=== PATIENT | female | born 1980 | race Hispanic/Latino ===

== ENCOUNTER 2025-08-07 10:52 | Inpatient (IN) | payer OTHER ==
[~2025-08-07] VITALS: Ht 170.2 cm; Wt 87.1 kg
--- NOTE | 2025-08-07 10:58 | ERN ---
ED Note History of Present Illness Stated Complaint: WOUND CHECK Chief Complaint: Wound Check Time Seen by MD: 10:55 Dictation: PATIENT IS A 44-YEAR-OLD FEMALE HERE COMING IN FROM [employer]S WORK[employer] OFFICE WITH COMPLAINTS OF ERYTHEMA SWELLING AND A POSSIBLE INSECT BITE OR SPIDER BITE TO THE DORSUM RIGHT FOOT TWO WEEKS AGO. SHE HAS GOT ERYTHEMA WITH THE WOUND. STATES SHE HAS BEEN WATCHED BY HER GAS SYSTEMS WORKER HOWEVER TODAY WAS ADVISED COME TO THE EMERGENCY ROOM FOR FURTHER EVALUATION AND TREATMENT LOW-GRADE TEMP. BLOOD SUGAR HAS BEEN ELEVATED TODAY 187 IN TRIAGE. Allergies: Coded Allergies: No Known Drug Allergies (Unverified Allergy, Unknown, 08/07/25) Past Medical History History: Not Applicable RN Note Reviewed/Agreed w/PFSH: Yes Review of System Dictation CONSTITUTIONAL: NEGATIVE EXCEPT FOR HPI HEAD/FACE: NEGATIVE EXCEPT FOR HPI EENT: NEGATIVE EXCEPT FOR HPI RESPIRATORY: NEGATIVE EXCEPT FOR HPI GASTROINTESTINAL/ABDOMINAL: NEGATIVE EXCEPT FOR HPI GENITOURINARY: NEGATIVE EXCEPT FOR HPI MUSCULOSKELETAL: NEGATIVE EXCEPT FOR HPI INTEGUMENTARY: NEGATIVE EXCEPT FOR HPI RIGHT GREAT TOE INSECT BITE NEUROLOGICAL/PSYCH: NEGATIVE EXCEPT FOR HPI HEMATOLOGIC/LYMPHATIC: NEGATIVE EXCEPT FOR HPI ALL SYSTEMS NEGATIVE, EXCEPT NOTED ABOVE. 13 POINT REVIEW OF SYSTEMS ASSESSED AND ALL NEGATIVE EXCEPT FOR ABOVE. Initial Vital Sign VS Vital Signs Date Time Temp Pulse Resp B/P (MAP) Pulse Ox O2 Delivery O2 Flow Rate FiO2 08/07/25 10:55 99.1 104 18 133/84 98 Room Air 08/07/25 12:27 0 21 Physical Exam Dictation VITAL SIGNS REVIEWED GENERAL APPEARANCE: ALERT, ORIENTED X 3, N MILD ACUTE DISTRESS, WELL DEVELOPED, NOURISHED. OBESE HEAD AND FACE: NON-TRAUMATIC. EYES: PERRL, PINK CONJUNCTIVAS, EYELID NO TRAUMA, ANTERIOR CHAMBER WITH ARCUS SENILIS. EARS: PINNAS INTACT AND NO SIGNS OF TRAUMA OR ERYTHEMA EAR CANALS CLEAR AND NO DISCHARGE TM NO ERYTHEMA NOSE: NO DISCHARGE, NO BLEEDING. OROPHARYNX: MOUTH NORMAL, TONGUE PINK, PHARYNX CLEAR,NO ERYTHEMA, TONSILS NO EXUDATES, NO ABSCESSES NOTED, MUCOUS MEMBRANE MOIST NECK: SUPPLE, NON-TENDER, NO THYROMEGALY, NO MASSES, NO JVD, NO BRUITS BREAST:DEFERRED CHEST:NO TENDERNESS, NO CREPITUS, NO PARADOXICAL MOVEMENT, NO RETRACTIONS LUNGS:CLEAR, WELL-VENTILATED, SYMMETRIC, NO RALES, NO WHEEZING, NO RHONCHI, NO STRIDOR, GOOD BREATH SOUNDS BILATERALLY HEART: REGULAR RATE, REGULAR RHYTHM, NO MURMUR, NO GALLOPS VASCULAR: NO PERIPHERAL EDEMA, ABDOMEN: SOFT, POSITIVE BOWEL SOUNDS, NONDISTENDED, NO GUARDING, NONTENDER, NO REBOUND, NO MASSES NO HEPATOMEGALY, NO SPLENOMEGALY, NO YAO'S SIGN, NO HERNIAS. RECTAL: DEFERRED GENITAL: DEFERRED NEUROLOGICAL: NORMAL SPEECH, MOTOR FUNCTION INTACT, SENSORY FUNCTION INTACT MUSCULOSKELETAL: NECK NONTENDER, FULL RANGE OF MOTION, BACK NONTENDER, FULL RANGE OF MOTION, EXTREMITIES: NONTENDER, FULL RANGE OF MOTION SKIN: COLOR PINK, PATIENT HAS A STAGE II LESION TO THE BASE OF THE RIGHT GREAT TOE MEDIALLY. IT IS MOIST AND DRAINING. ERYTHEMATOUS TENDER. CULTURE WE WILL BE SENT TO PHARMACY LYMPHATIC: DEFERRED Results (Laboratory/Radiology) Laboratory/Radiology Laboratory Tests Test 08/07/25 11:03 White Blood Count 8.2 K/uL (4.8-10.8) Red Blood Count 4.73 MIL/uL (4.00-5.50) Hemoglobin 13.4 g/dL (12.0-16.0) Hematocrit 39.2 % (36-48) Mean Corpuscular Volume 82.9 fL (79-99) Mean Corpuscular Hemoglobin 28.3 pg (27.0-33.0) Mean Corpuscular Hemoglobin Concent 34.2 g/dL (32.0-36.0) Red Cell Distribution Width 11.8 % (11.0-15.5) Platelet Count 236 K/uL (130-400) Mean Platelet Volume 11.2 fL (7.5-10.5) H Immature Granulocyte % (Auto) 0.4 % (0-1) Neutrophils (%) (Auto) 88.7 % (40.0-77.0) H Lymphocytes (%) (Auto) 7.1 % (21.0-51.0) L Monocytes (%) (Auto) 3.7 % (3.0-13.0) Eosinophils (%) (Auto) 0.0 % (0.0-8.0) Basophils (%) (Auto) 0.1 % (0.0-5.0) Neutrophils # (Auto) 7.3 K/uL (1.8-7.7) Lymphocytes # (Auto) 0.6 K/uL (1.0-4.8) L Monocytes # (Auto) 0.3 K/uL (0.1-1.0) Eosinophils # (Auto) 0.00 K/uL (0.00-0.70) Basophils # (Auto) 0.01 K/uL (0.00-0.20) Absolute Immature Granulocyte (auto 0.03 K/uL (0-1) Nucleated Red Blood Cells 0.0 % (0.0-0.19) White Cell Morphology Comment See comments Sodium Level 133 mmol/L (136-145) L Potassium Level 3.4 mmol/L (3.5-5.1) L Chloride Level 98 mmol/L (101-111) L Carbon Dioxide Level 24 mmol/L (21-32) Blood Urea Nitrogen 12 mg/dL (7-18) Creatinine 0.7 mg/dL (0.5-1.0) Glomerular Filtration Rate Calc 109 mL/min (>90) Random Glucose 163 mg/dL (70-105) H Lactic Acid Level 1.8 mmol/L (0.8-2.5) Total Calcium 9.3 mg/dL (8.5-10.1) IMAGING REPORT Signed PATIENT: BRUNO MOSS MR#: [id number] : 1980 SEX: F AGE: 44 LOCATION: [facility] ORDER 56 STATUS: [facility] REPORT#: [id number] SERVICE 105 REASON: INSECT BITE WITH A ERYTHEMA TO RIGHT FOOT DORSAL ORDERING PHYSICIAN: CHARITY GR NP PROCEDURE: FT 3VW RT - FOOT COMP 3+VWS RT FOOT COMP 3+VWS RT REASON: INSECT BITE WITH A ERYTHEMA TO RIGHT FOOT DORSAL TECHNIQUE: 4 views were obtained. FINDINGS: There is no evidence of fracture or dislocation. There is no joint effusion. The soft tissues appear unremarkable. There is no evidence of a radiopaque foreign body. There is a small ventral calcaneal spur. IMPRESSION: No acute findings. Small ventral calcaneal spur Labs Reviewed?: Yes ED Course ED Course Orders Procedure Category Date Status Time Foot Comp 3+Vws Rt RAD 08/07/25 Resulted 10:56 Blood Cult HSREYAS 08/07/25 In Process 10:56 Lactic Acid LAB 08/07/25 Complete 10:56 Cbc With Differential LAB 08/07/25 Complete 10:56 Urinalysis Profile LAB 08/07/25 Logged 10:56 Basic Metabolic Panel LAB 08/07/25 Complete 10:56 Clindamycin Ivpb PHA 08/07/25 In Process 600mg/50ml (Cleocin 12:16 Aerobic Culture SHREYAS 08/07/25 Logged 12:17 0.9%Nacl 1000ml (Ns PHA 08/07/25 In Process 1000ml) 13:00 Edm Admit Bridge Order ADM 08/07/25 Transmitted 12:34 Current Medications Medications (Trade) Dose Ordered Sig/Willis Route PRN Reason Start Time Stop Time Status Last Admin Dose Admin Clindamycin HCl/ Dextrose 50 ml @ 100 mls/hr ONCE STAT IV 08/07/25 12:16 08/07/25 12:45 Sodium Chloride 1,000 ml @ 0 mls/hr ONCE ONCE IV 08/07/25 13:00 08/07/25 13:01 Vital Signs Date Time Temp Pulse Resp B/P (MAP) Pulse Ox O2 Delivery O2 Flow Rate FiO2 08/07/25 12:27 99.1 104 18 133/84 98 Room Air* 0 21 08/07/25 10:55 99.1 104 18 133/84 98 Room Air 1220/SPOKE WITH PATIENT AND HER AT LENGTH SHE WAS TACHYCARDIC ON PRESENTATION WITH A LOW-GRADE TEMP. SHE HAS BEEN ON CLINDAMYCIN HAS HAD TWO ROCEPHIN SHOTS BY HER DOCTOR OVER THE LAST SEVEN DAYS. CLINDAMYCIN FILLED ON 07/31 TODAY SHE SAW A GAS SYSTEMS WORKER TO DID AN I&D ON THE TOE AND THEN TOLD HER TO COME TO THE HOSPITAL. 1230/spoke with Dr. galvan, reviewed x-ray labs and interventions for hyponatremia and dehydration he agreed to admit. Medical Decision Making MDM MDM: DIFFERENTIAL DIAGNOSIS: INFECTED INSECT BITE/CELLULITIS/DIABETIC TOES/ELECTROLYTE IMBALANCE DEHYDRATION/SEPSIS/OSTEOMYELITIS RATIONALE: TESTS CONSIDERED AND ORDERED SECONDARY TO SHARED DECISION MAKING INCLUDE: LABS,AND RADIOLOGY PREVIOUS OUTSIDE RECORDS REVIEWED: OLD ER VISITS. RISK OF COMPLICATION AND/OR MORBIDITY OR MORTALITY OF PATIENT MANAGEMENT: NONE MEDICATIONS-PER MEDICATION RECONCILIATION NEED FOR HOSPITALIZATION: PATIENT DOES MEET CRITERIA FOR HOSPITALIZATION. PATIENT WILL NEED ADMITTED FOR OUTPATIENT TREATMENT FAILURE FOR DIABETIC TOE NEED FOR EMERGENCY MAJOR/MINOR SURGERY: NO THERE ARE NO SOCIAL CONCERNS WITH THIS PATIENT. PRESCRIPTION DRUG MANAGEMENT PRESCRIPTIONS WILL INCLUDE SYMPTOMATIC CARE PATIENT'S PRIOR EXTERNAL MEDICAL RECORDS FROM OTHER ER VISITS WERE REVIEWED BY ME INDICATED. PRIOR TESTING AND RESULTS FROM PREVIOUS VISITS WERE REVIEWED. PRIOR TESTS WERE TAKEN INTO ACCOUNT WITH MEDICAL DECISION MAKING AND RESOURCE UTILIZATION, INDEPENDENT HISTORIAN/HISTORIANS WERE USED TO OBTAIN COMPLETE MEDICAL HISTORY. I INDEPENDENTLY INTERPRETED THE TEST THAT WERE PERFORMED, RESULTS WERE REVIEWED BY ME AND CONSIDERED FINDINGS ON RADIOLOGY IF ORDERED. MEDICAL MANAGEMENT AND EXAMINATION INTERPRETATION DISCUSSIONS WERE HAD BY ME WITH OTHER QUALIFIED HEALTHCARE PROFESSIONALS INDICATED FOR THE PATIENT'S CARE. DX & DISP Disposition: Inpatient Decision to Admit Time: 12:22 Departure Impression: Primary Impression: Diabetic ulcer of right great toe Additional Impressions: Hyponatremia, Hypochloremia, Hypokalemia, Failure of outpatient treatment Condition: Stable Time of Disposition: 12:22 I have reviewed the case, and I agree with, Diagnosis and Plan CHARITY GR NP Aug 07, 2025 10:58 KYLEE DUVAL DO Aug 07, 2025 12:42
[2025-08-07 11:25] LABS: IMMATURE GRANULOCYTE ABSOLUTE 0.03 K/uL (0-1); NUCLEATED RED BLOOD CELLS 0.0 % (0.0-0.19); PLATELET COUNT (AUTO) 236 K/uL (130-400); RED BLOOD CELL COUNT(AUTO) 4.73 MIL/uL (4.00-5.50); RED CELL DISTRIBUTION WIDTH 11.8 % (11.0-15.5); WHITE BLOOD COUNT (AUTO) 8.2 K/uL (4.8-10.8)
[2025-08-07 11:43] LABS: CREATININE 0.7 mg/dL (0.5-1.0); GLOMERULAR FILTR. RATE CALC 109.0 mL/min (>90); GLUCOSE,RANDOM 163.0 mg/dL (70-105); SODIUM SERUM 133.0 mmol/L (136-145); UREA NITROGEN, BLOOD 12.0 mg/dL (7-18)
--- NOTE | 2025-08-07 12:06 | HMCIMG ---
FOOT COMP 3+VWS RT REASON: INSECT BITE WITH A ERYTHEMA TO RIGHT FOOT DORSAL TECHNIQUE: 4 views were obtained. FINDINGS: There is no evidence of fracture or dislocation. There is no joint effusion. The soft tissues appear unremarkable. There is no evidence of a radiopaque foreign body. There is a small ventral calcaneal spur. IMPRESSION: No acute findings. Small ventral calcaneal spur
[2025-08-07] MEDS: CLINDAMYCIN IVPB 600MG/50ML 50 ML IV STA (12:56)
[2025-08-07] MEDS: 0.9%NACL 1000ML 1,000 ML IV ONE (12:56)
[2025-08-07 13:03] LABS: APPEARANCE,URINE CLEAR (CLEAR); GLUCOSE, URINE (UA) 300 mg/dL (NEGATIVE); LEUKOCYTE ESTERASE ,URINE NEGATIVE Leu/uL (NEGATIVE); NITRATE,URINE NEGATIVE (NEGATIVE); OCCULT BLOOD,URINE NEGATIVE (NEGATIVE)
[2025-08-07 13:14] LABS: ADD UA MICROSCOPIC YES
[2025-08-07 13:29] LABS: SQUAMOUS EPITHELIAL CELL,UR RARE /HPF (0-2)
--- NOTE | 2025-08-07 13:53 | HP ---
[facility] HISTORY AND PHYSICAL Date of Service: Aug 07, 2025 Time of Service: 13:53 HISTORY OF PRESENT ILLNESS: This is a 44-year-old female with past medical history of diabetes mellitus type 2 presented to the hospital secondary to pain in her right big toe. The patient states around two weeks ago she had a bite in her right big toe from a spider. She states she was wearing socks and she was not able to see the type of spider that bit her. She noted swelling and tenderness on the toe. She had increasing redness with associated ulcer. She took antibiotics at home without improvement. She also was having a fever, chills. She denied any chest pain, shortness of breath, abdominal pain, nausea, vomiting. Denied any diarrhea, constipation. She was given IV antibiotics x3 by her primary care provider without improvement in her symptoms. She went to see a clerk of scales today it [facility] who did incision and drainage of the right big toe. Patient was thereafter recommended to come to the hospital for further evaluation. Labs were notable for white count of 8.2, hemoglobin was 13.4, platelet count was 236 K, sodium was 133, potassium was 3.4, creatinine was 0.7. The patient had a foot x-ray done which showed no acute findings. REVIEW OF SYSTEMS CONSTITUTIONAL: Positive for fever, chills, malaise NEUROLOGICAL: Denies headache, amaurosis fugax, motor weakness, sensory deficit, vertigo/spinning sensation, gait abnormalities, or tremors. ENT: No hearing loss, otalgia, otorrhea, rhinitis, rhinorrhea, hoarseness, or sore throat. CARDIOVASCULAR: Denies any exertional angina, dyspnea on exertion, orthopnea, paroxysmal nocturnal dyspnea, palpitations, life-threatening arrhythmias, cl audication. PULMONARY: Denies any shortness of breath, cough, phlegm/sputum, hemoptysis, pleuritic chest pain. GASTROINTESTINAL: Denies any type of dysphagia to either liquids or solids. Denies nausea, vomiting, pyrosis, early satiety, abdominal pain, diarrhea, constipation, or changes in stool consistency or caliber. Denies coffee-ground emesis, hematemesis, hematochezia, or melanotic stools. GENITOURINARY: Denies frequency, urgency, nocturia, hematuria or incontinence (Storage/Irritative symptoms.) Low urinary stream, straining to void, urinary intermittency or hesitancy, splitting of the voiding stream, terminal dribbling. ENDOCRINOLOGIC: Denies polyuria, polydipsia, polyphagia or heat/cold intolerances. HEMATOLOGIC: Denies thrombophilia/previous clots, or coagulopathy/bleeding disorders. ONCOLOGIC: Denies personal history of malignancy. DERMATOLOGIC: Denies rashes or pruritus. PSYCHIATRIC: Denies any suicidal or homicidal ideation. Denies hallucinations. Musculoskeletal: Pain in the right big toe PAST MEDICAL HISTORY: Diabetes mellitus type 2 PAST SURGICAL HISTORY: History of , history of tubal ligation PAST SOCIAL HISTORY: Denied any smoking, alcohol, drug use FAMILY HISTORY: Denied any pertinent family history Coded Allergies: No Known Drug Allergies (Unverified Allergy, Unknown, 08/07/25) PHYSICAL EXAM GENERAL APPEARANCE: The patient is awake, alert, and oriented, in no acute cardiopulmonary distress. NEUROLOGICAL: Cranial nerves II-XII grossly intact. Motor is 5/5 in bilateral upper and lower extremities proximal to distal. No sensory deficits. HEENT: Face is symmetric. Pupils are equal and reactive. Extraocular movements are intact. NECK: Supple. No JVD. No thyromegaly. No submental, submandibular, pre- /postauricular, occipital or supraclavicular lymphadenopathy. CHEST: Normal chest expansion. No Telemetry. LUNGS: Absence of any rales, rhonchi or any wheezing. CARDIOVASCULAR: Regular. S1 and S2 normal. No appreciable rubs, murmurs or gallops. ABDOMEN: Soft, nontender, and nondistended. There is no rebound, voluntary guarding, or rigidity. : Deferred. No [place]. EXTREMITIES: Patient currently has dressing present in the right big toe. There is open wound noted in the right big toe. There is minimal drainage noted. SKIN: No skin breakdown. Vital Sign (Last 24 Hours) 08/07/25 12:27 Temp 99.1 Pulse 104 Resp 18 B/P (MAP) 133/84 Pulse Ox 98 O2 Delivery Room Air* O2 Flow Rate 0 FiO2 21 LABS: Laboratory: Test 08/07/25 12:50 08/07/25 11:03 Range/Units Urine Color LIGHT-YELLOW YELLOW Urine Appearance CLEAR CLEAR Urine pH 5.5 5.0-8.0 Urine Specific Ryde 1.018 1.001-1.031 Urine Protein NEGATIVE NEGATIVE mg/dL Urine Glucose (UA) 300 H NEGATIVE mg/dL Urine Ketones 20 H NEGATIVE mg/dL Urine Occult Blood NEGATIVE NEGATIVE Urine Nitrate NEGATIVE NEGATIVE Urine Bilirubin NEGATIVE NEGATIVE mg/dL Urine Urobilinogen 0.2 0.2-1.0 mg/dL Urine Leukocyte Esterase NEGATIVE NEGATIVE Jese/uL Urine RBC 0-1 0-1 /HPF Urine WBC 0-1 0-1 /HPF Urine Squamous Epithelial Cells RARE 0-2 /HPF Urine Bacteria FEW None Seen /HPF White Blood Count 8.2 4.8-10.8 K/uL Red Blood Count 4.73 4.00-5.50 MIL/uL Hemoglobin 13.4 12.0-16.0 g/dL Hematocrit 39.2 36-48 % Mean Corpuscular Volume 82.9 79-99 fL Mean Corpuscular Hemoglobin 28.3 27.0-33.0 pg Mean Corpuscular Hemoglobin Concent 34.2 32.0-36.0 g/dL Red Cell Distribution Width 11.8 11.0-15.5 % Platelet Count 236 130-400 K/uL Mean Platelet Volume 11.2 H 7.5-10.5 fL Immature Granulocyte % (Auto) 0.4 0-1 % Neutrophils (%) (Auto) 88.7 H 40.0-77.0 % Lymphocytes (%) (Auto) 7.1 L 21.0-51.0 % Monocytes (%) (Auto) 3.7 3.0-13.0 % Eosinophils (%) (Auto) 0.0 0.0-8.0 % Basophils (%) (Auto) 0.1 0.0-5.0 % Neutrophils # (Auto) 7.3 1.8-7.7 K/uL Lymphocytes # (Auto) 0.6 L 1.0-4.8 K/uL Monocytes # (Auto) 0.3 0.1-1.0 K/uL Eosinophils # (Auto) 0.00 0.00-0.70 K/uL Basophils # (Auto) 0.01 0.00-0.20 K/uL Absolute Immature Granulocyte (auto 0.03 0-1 K/uL Nucleated Red Blood Cells 0.0 0.0-0.19 % White Cell Morphology Comment See comments Sodium Level 133 L 136-145 mmol/L Potassium Level 3.4 L 3.5-5.1 mmol/L Chloride Level 98 L 101-111 mmol/L Carbon Dioxide Level 24 21-32 mmol/L Blood Urea Nitrogen 12 7-18 mg/dL Creatinine 0.7 0.5-1.0 mg/dL Glomerular Filtration Rate Calc 109 >90 mL/min Random Glucose 163 H 70-105 mg/dL Lactic Acid Level 1.8 0.8-2.5 mmol/L Total Calcium 9.3 8.5-10.1 mg/dL Current Medications Medications (Trade) Dose Ordered Sig/Willis Route PRN Reason Start Time Stop Time Status Last Admin Dose Admin Acetaminophen (TYLenol 500MG TAB) 500 mg Q6H PRN PO MILD PAIN (1-3) 08/07/25 14:00 09/06/25 13:59 UNV Cefepime HCl (MAXipime 1 GM vial) 1 gm Q8H IVPB 08/07/25 14:00 08/17/25 13:59 UNV Clindamycin HCl/ Dextrose 50 ml @ 100 mls/hr ONCE STAT IV 08/07/25 12:16 08/07/25 12:45 DC 08/07/25 12:56 100 MLS/HR Insulin Human Regular (humuLIN R 100 UNIT/ML 3ML) INSULIN SLIDING SCAL... ACHS SQ 08/07/25 16:30 09/06/25 16:29 UNV Ketorolac Tromethamine (toRADol) 15 mg Q6H PRN IV MODERATE PAIN (4-6) 08/07/25 14:00 08/12/25 13:59 UNV Morphine Sulfate (morPHINE 2MG SYG) 2 mg Q4H PRN IVP SEVERE PAIN (7-10) 08/07/25 14:00 08/14/25 13:59 UNV Ondansetron HCl (zoFRAN 4MG INJ) 4 mg Q6H PRN IVP NAUSEA/VOMITING 08/07/25 13:30 09/06/25 13:29 08/07/25 13:30 4 MG Sodium Chloride 1,000 ml @ 100 mls/hr Q10H IV 08/07/25 14:00 09/06/25 13:59 UNV Vancomycin HCl (Vancomycin Protocol) 1 each AD IV 08/07/25 14:00 08/21/25 13:59 UNV DIAGNOSTICS / RADIOLOGY: Foot x-ray showed no acute findings ASSESSMENT: Cellulitis involving the right big toe with open wound status post incision and drainage by Podiatry failed outpatient treatment POA Mild Hyponatremia Diabetes mellitus type two PLAN: - patient to be admitted to medical-surgical unit -in reference to cellulitis involving the right big toe. We will request consultation with Podiatry. We will follow up regarding I and D performed in [facility] for cultures. Patient will be started on vancomycin, cefepime. We will request consultation with Infectious Disease - obtain lower extremity doppler -check procalcitonin, CRP, hemoglobin A1c -obtain patient's home medications. -start patient on sliding scale insulin -further orders per hospitalization course Advanced Care Planning Which of the following were discussed: Hospice care: Yes __ No __ Therapeutic options: Yes __ No __ Advance directives: Yes __ No __ Other discussions: Pt is full code Discussed with who?: patient (Patient, family or surrogates) Voluntary nature of this service was explained to the patient? Yes _x_ No __ Amount of time spent: 25 minutes LUIS Kimbrough MD, MD Aug 07, 2025 13:53
[2025-08-07] MEDS ORDERED: PoTASSium chl 10% ELIXIR 20MEQ 20 MEQ/15 ML UDCUP PO PRN (14:00)
[2025-08-07] MEDS ORDERED: VANCOMYCIN PROTOCOL PER PHARMACY IV SCH (14:00)
[2025-08-07] MEDS: 0.9%NACL 1000ML 1,000 ML IV SCH (14:11)
[2025-08-07] MEDS: VANCOMYCIN 1.75 GM/250 ML BAG 250 ML IV ONE (15:07)
--- NOTE | 2025-08-07 15:11 | HMCIMG ---
EXAM: US Duplex bilateral Lower Extremity Arteries. CLINICAL HISTORY: ASSESS FOR PVD TECHNIQUE: Real-time ultrasound scan of the arteries of the bilateral lower extremity with 2-D spann scale, color Doppler flow, and spectral waveform analysis. COMPARISON: None provided. FINDINGS: COMMON FEMORAL ARTERY: No occlusion or significant stenosis. SUPERFICIAL FEMORAL ARTERY: No occlusion or significant stenosis. POPLITEAL ARTERY: No occlusion or significant stenosis. CALF ARTERIES: No occlusion or significant stenosis. Waveforms are triphasic within the bilateral lower extremity arteries. IMPRESSION: 1. No significant arterial stenosis or occlusion in bilateral lower extremities. /Cali
[2025-08-07 15:13] LABS: INR 1.0 (0.85-1.15)
--- NOTE | 2025-08-07 15:27 | NUR ---
DCP:HOME Pt currently lives at home with her Sebastian Rivera [phone]. Pt does not have any DME, home health, or provider services. Pt states that she is able to complete ADLs independently. PCP is Dr. Jourdan Herrera and uses [facility] for any RX needs. At DC pt will want to go home and family can assist with transportation. Addendum: 08/07/25 at 1529 by DIEUDONNE SMILEY SS Amended: Links added.
[2025-08-07] MEDS ORDERED: CLIN-141 PO (15:39)
[2025-08-07] MEDS ORDERED: GLIP10TA16 PO (15:39)
[2025-08-07] MEDS ORDERED: INSU100V45 SQ (15:39)
--- NOTE | 2025-08-07 19:10 | NUR ---
DR. RIVERA ROUNDS TO PT'S ROOM AT THIS TIME.
--- NOTE | 2025-08-07 19:27 | NUR ---
PER DR. RIVERA, APPLY IODOSORB GEL 40GM TO R BIG TOE AND WRAP WITH GAUZE DAILY.
[2025-08-07] MEDS: IODOSORB GEL 40GM TP ONE (20:18)
--- NOTE | 2025-08-07 20:24 | CONS ---
CONSULTATION NOTE Date of Service: Aug 07, 2025 Reason for Consultation: 44 years old female was seen for consultation for evaluation of ulceration and infection on her right great toe. Requesting Physician: Dr. Gustafson HISTORY OF PRESENT ILLNESS: Patient stated that she was bitten by a possible spider she did not recall what kind of spider the bit her approximately two weeks ago. She was seen by her primary care physician she was treated with oral antibiotics a local care with no improvement at the condition. Most recently she was treated at the [facility] or for her infection incision and drainage was performed at that time and patient was sent to the hospital for further IV antibiotics and wound care. REVIEW OF SYSTEMS CONSTITUTIONAL: Denies fever, chills, or fatigue. HEAD/FACE: No signs of trauma. EENT: Denies eye pain, blurred vision, double vision, or light sensitivity. RESPIRATORY: Denies shortness of breath, cough, wheezing CARDIOVASCULAR: Denies chest pain, palpitation, syncope GASTROINTESTINAL/ABDOMINAL: Denies abdominal pain, constipation, diarrhea, nausea or vomiting GENITOURINARY: Denies dysuria or hematuria. MUSCULOSKELETAL: Denies joint pain, tenderness, or trauma. INTEGUMENTARY: Cellulitis and rash on her great toe right. NEUROLOGICAL/PSYCH: Denies anxiety, depression, heat or cold intolerance. PAST MEDICAL HISTORY: Diabetes PAST SURGICAL HISTORY: and tubal ligation PAST SOCIAL HISTORY: Denies any smoking drinking or using illicit drugs. FAMILY HISTORY: History of diabetes in the family. Coded Allergies: No Known Drug Allergies (Unverified Allergy, Unknown, 08/07/25) PHYSICAL EXAM EYES: Anicteric. Pupils equal and reactive. HENT: No oral thrush seen, moist Oral mucosa NECK: Supple, no JVD or thyromegaly. LUNGS: Good air entry. No rales, no rhonchi. CARDIOVASCULAR: S1, S2 regular. No murmur heard. ABDOMEN: Soft, non tender, bowel sounds present, no organomegaly CENTRAL NERVOUS SYSTEM: Awake, alert, oriented x 3. No focal deficits. SKIN: Ulceration and necrotic ulcer was noted on the most medial aspect of the hallux also a pre ulcer area was noted of the plantar hallux same foot right. Localized cellulitis and epidermolysis. LYMPHATICS: No peripheral lymphadenopathy MUSCULOSKELETAL: No joint swelling, erythema or tenderness. EXTREMITIES: No cyanosis or clubbing BACK: No deformity, no pressure ulcer. GENITOURINARY: No dysuria or hematuria Vital Sign (Last 24 Hours) 08/07/25 18:24 Temp 100.0 Pulse 108 Resp 20 B/P (MAP) 129/82 Pulse Ox 97 O2 Delivery Room Air* O2 Flow Rate 0 FiO2 21 LABS: Laboratory: Test 08/07/25 16:22 08/07/25 13:59 08/07/25 12:50 08/07/25 11:03 Range/Units Whole Blood Glucose 188 H 70-110 MG/DL Lactic Acid Level 1.4 0.8-2.5 mmol/L C-Reactive Protein, Quantitative 82.20 H 0.5-3.0 mg/L Procalcitonin 0.33 0.05-0.5 ng/mL Thyroid Stimulating Hormone (TSH) 1.59 0.36-3.74 uIU/mL Urine Color LIGHT-YELLOW YELLOW Urine Appearance CLEAR CLEAR Urine pH 5.5 5.0-8.0 Urine Specific Benge 1.018 1.001-1.031 Urine Protein NEGATIVE NEGATIVE mg/dL Urine Glucose (UA) 300 H NEGATIVE mg/dL Urine Ketones 20 H NEGATIVE mg/dL Urine Occult Blood NEGATIVE NEGATIVE Urine Nitrate NEGATIVE NEGATIVE Urine Bilirubin NEGATIVE NEGATIVE mg/dL Urine Urobilinogen 0.2 0.2-1.0 mg/dL Urine Leukocyte Esterase NEGATIVE NEGATIVE Jese/uL Urine RBC 0-1 0-1 /HPF Urine WBC 0-1 0-1 /HPF Urine Squamous Epithelial Cells RARE 0-2 /HPF Urine Bacteria FEW None Seen /HPF White Blood Count 8.2 4.8-10.8 K/uL Red Blood Count 4.73 4.00-5.50 MIL/uL Hemoglobin 13.4 12.0-16.0 g/dL Hematocrit 39.2 36-48 % Mean Corpuscular Volume 82.9 79-99 fL Mean Corpuscular Hemoglobin 28.3 27.0-33.0 pg Mean Corpuscular Hemoglobin Concent 34.2 32.0-36.0 g/dL Red Cell Distribution Width 11.8 11.0-15.5 % Platelet Count 236 130-400 K/uL Mean Platelet Volume 11.2 H 7.5-10.5 fL Immature Granulocyte % (Auto) 0.4 0-1 % Neutrophils (%) (Auto) 88.7 H 40.0-77.0 % Lymphocytes (%) (Auto) 7.1 L 21.0-51.0 % Monocytes (%) (Auto) 3.7 3.0-13.0 % Eosinophils (%) (Auto) 0.0 0.0-8.0 % Basophils (%) (Auto) 0.1 0.0-5.0 % Neutrophils # (Auto) 7.3 1.8-7.7 K/uL Lymphocytes # (Auto) 0.6 L 1.0-4.8 K/uL Monocytes # (Auto) 0.3 0.1-1.0 K/uL Eosinophils # (Auto) 0.00 0.00-0.70 K/uL Basophils # (Auto) 0.01 0.00-0.20 K/uL Absolute Immature Granulocyte (auto 0.03 0-1 K/uL Nucleated Red Blood Cells 0.0 0.0-0.19 % White Cell Morphology Comment See comments Prothrombin Time 10.6 9.6-11.6 SEC Prothromb Time International Ratio 1.00 0.85-1.15 Activated Partial Thromboplast Time 29.5 26.3-35.5 SEC Sodium Level 133 L 136-145 mmol/L Potassium Level 3.4 L 3.5-5.1 mmol/L Chloride Level 98 L 101-111 mmol/L Carbon Dioxide Level 24 21-32 mmol/L Blood Urea Nitrogen 12 7-18 mg/dL Creatinine 0.7 0.5-1.0 mg/dL Glomerular Filtration Rate Calc 109 >90 mL/min Random Glucose 163 H 70-105 mg/dL Total Calcium 9.3 8.5-10.1 mg/dL DIAGNOSTICS / RADIOLOGY: [ ] ASSESSMENT: Diabetic ulcer hallux right. Cellulitis secondary to by the bite. Diabetes. PLAN: Continue IV antibiotics therapy. We will start Iodosorb to the wound this will be done on a daily basis. Most likely patient will need debridement of this ulcer. We will follow up x-rays and other studies. Face has been explained to the patient and her problem no guarantees were offered at this time we will attempt local wound care and IV antibiotics and possible debridement if necessary. LATRICE RIVERA DPM Aug 07, 2025 20:24
[2025-08-07] MEDS: FAMOTIDINE 20MG VIAL IV SCH (21:19)
[2025-08-08] MEDS: VANCOMYCIN 1.5 GM/250 ML BAG 250 ML IV SCH ×2 (03:13→20:02)
[2025-08-08 07:02] LABS: IMMATURE GRANULOCYTE ABSOLUTE 0.03 K/uL (0-1); NUCLEATED RED BLOOD CELLS 0.0 % (0.0-0.19); PLATELET COUNT (AUTO) 182 K/uL (130-400); RED BLOOD CELL COUNT(AUTO) 4.03 MIL/uL (4.00-5.50); RED CELL DISTRIBUTION WIDTH 12.1 % (11.0-15.5); WHITE BLOOD COUNT (AUTO) 5.7 K/uL (4.8-10.8)
[2025-08-08 07:07] LABS: CREATININE 0.6 mg/dL (0.5-1.0); GLOMERULAR FILTR. RATE CALC 113.0 mL/min (>90); GLUCOSE,RANDOM 224.0 mg/dL (70-105); SODIUM SERUM 133.0 mmol/L (136-145); UREA NITROGEN, BLOOD 15.0 mg/dL (7-18)
--- NOTE | 2025-08-08 11:07 | PN ---
[facility] PROGRESS NOTE Date of Service: Aug 08, 2025 Time of Service: 10:56 SUBJECTIVE: [ ] Patient stated that she was bitten by a possible spider she did not recall what kind of spider the bit her approximately two weeks ago. She was seen by her primary care physician she was treated with oral antibiotics a local care with no improvement at the condition. Most recently she was treated at the [facility] or for her infection incision and drainage was performed at that time and patient was sent to the hospital for further IV antibiotics and wound care. 08/08/25 patient was seen in ED she is fully awake alert oriented x3. Right foot great toe infected cellulitis swollen dressing. continue with IV antibiotics ID we will be following.. Patient was already seen by framing mechanic most likely we will need debridement. Imaging were reviewed. All questions addressed. REVIEW OF SYSTEMS CONSTITUTIONAL: Positive for fever, chills, malaise NEUROLOGICAL: Denies headache, amaurosis fugax, motor weakness, sensory deficit, vertigo/spinning sensation, gait abnormalities, or tremors. ENT: No hearing loss, otalgia, otorrhea, rhinitis, rhinorrhea, hoarseness, or sore throat. CARDIOVASCULAR: Denies any exertional angina, dyspnea on exertion, orthopnea, paroxysmal nocturnal dyspnea, palpitations, life-threatening arrhythmias, claudication. PULMONARY: Denies any shortness of breath, cough, phlegm/sputum, hemoptysis, p leuritic chest pain. GASTROINTESTINAL: Denies any type of dysphagia to either liquids or solids. Denies nausea, vomiting, pyrosis, early satiety, abdominal pain, diarrhea, constipation, or changes in stool consistency or caliber. Denies coffee-ground emesis, hematemesis, hematochezia, or melanotic stools. GENITOURINARY: Denies frequency, urgency, nocturia, hematuria or incontinence (Storage/Irritative symptoms.) Low urinary stream, straining to void, urinary intermittency or hesitancy, splitting of the voiding stream, terminal dribbling. ENDOCRINOLOGIC: Denies polyuria, polydipsia, polyphagia or heat/cold intolerances. HEMATOLOGIC: Denies thrombophilia/previous clots, or coagulopathy/bleeding disorders. ONCOLOGIC: Denies personal history of malignancy. DERMATOLOGIC: Denies rashes or pruritus. PSYCHIATRIC: Denies any suicidal or homicidal ideation. Denies hallucinations. Musculoskeletal: Pain in the right big toe PHYSICAL EXAM GENERAL APPEARANCE: The patient is awake, alert, and oriented, in no acute cardiopulmonary distress. NEUROLOGICAL: Cranial nerves II-XII grossly intact. Motor is 5/5 in bilateral upper and lower extremities proximal to distal. No sensory deficits. HEENT: Face is symmetric. Pupils are equal and reactive. Extraocular movements are intact. NECK: Supple. No JVD. No thyromegaly. No submental, submandibular, pre- /postauricular, occipital or supraclavicular lymphadenopathy. CHEST: Normal chest expansion. No Telemetry. LUNGS: Absence of any rales, rhonchi or any wheezing. CARDIOVASCULAR: Regular. S1 and S2 normal. No appreciable rubs, murmurs or gallops. ABDOMEN: Soft, nontender, and nondistended. There is no rebound, voluntary guarding, or rigidity. : Deferred. No [place]. EXTREMITIES: Patient currently has dressing present in the right big toe. There is open wound noted in the right big toe. There is minimal drainage noted. SKIN: No skin breakdown. Vital Signs (last 8hr) Date Time Temp Pulse Resp B/P (MAP) Pulse Ox O2 Delivery O2 Flow Rate FiO2 08/08/25 06:12 89 16 107/65 98 Room Air* 0 21 08/08/25 03:46 82 18 98/63 97 Room Air* 0 21 LABS: Laboratory: Test 08/08/25 08:05 08/08/25 06:51 08/07/25 13:59 08/07/25 12:50 Range/Units Whole Blood Glucose 246 H 70-110 MG/DL White Blood Count 5.7 # 4.8-10.8 K/uL Red Blood Count 4.03 4.00-5.50 MIL/uL Hemoglobin 11.6 L 12.0-16.0 g/dL Hematocrit 33.8 L 36-48 % Mean Corpuscular Volume 83.9 79-99 fL Mean Corpuscular Hemoglobin 28.8 27.0-33.0 pg Mean Corpuscular Hemoglobin Concent 34.3 32.0-36.0 g/dL Red Cell Distribution Width 12.1 11.0-15.5 % Platelet Count 182 130-400 K/uL Mean Platelet Volume 11.0 H 7.5-10.5 fL Immature Granulocyte % (Auto) 0.5 0-1 % Neutrophils (%) (Auto) 74.7 40.0-77.0 % Lymphocytes (%) (Auto) 14.1 L 21.0-51.0 % Monocytes (%) (Auto) 9.5 3.0-13.0 % Eosinophils (%) (Auto) 0.7 0.0-8.0 % Basophils (%) (Auto) 0.5 0.0-5.0 % Neutrophils # (Auto) 4.2 1.8-7.7 K/uL Lymphocytes # (Auto) 0.8 L 1.0-4.8 K/uL Monocytes # (Auto) 0.5 0.1-1.0 K/uL Eosinophils # (Auto) 0.04 0.00-0.70 K/uL Basophils # (Auto) 0.03 0.00-0.20 K/uL Absolute Immature Granulocyte (auto 0.03 0-1 K/uL Nucleated Red Blood Cells 0.0 0.0-0.19 % Sodium Level 133 L 136-145 mmol/L Potassium Level 3.9 3.5-5.1 mmol/L Chloride Level 102 101-111 mmol/L Carbon Dioxide Level 26 21-32 mmol/L Blood Urea Nitrogen 15 7-18 mg/dL Creatinine 0.6 0.5-1.0 mg/dL Glomerular Filtration Rate Calc 113 >90 mL/min Random Glucose 224 H 70-105 mg/dL Total Calcium 8.5 8.5-10.1 mg/dL Lactic Acid Level 1.4 0.8-2.5 mmol/L C-Reactive Protein, Quantitative 82.20 H 0.5-3.0 mg/L Procalcitonin 0.33 0.05-0.5 ng/mL Thyroid Stimulating Hormone (TSH) 1.59 0.36-3.74 uIU/mL Urine Color LIGHT-YELLOW YELLOW Urine Appearance CLEAR CLEAR Urine pH 5.5 5.0-8.0 Urine Specific [place]raine 1.018 1.001-1.031 Urine Protein NEGATIVE NEGATIVE mg/dL Urine Glucose (UA) 300 H NEGATIVE mg/dL Urine Ketones 20 H NEGATIVE mg/dL Urine Occult Blood NEGATIVE NEGATIVE Urine Nitrate NEGATIVE NEGATIVE Urine Bilirubin NEGATIVE NEGATIVE mg/dL Urine Urobilinogen 0.2 0.2-1.0 mg/dL Urine Leukocyte Esterase NEGATIVE NEGATIVE Jese/uL Urine RBC 0-1 0-1 /HPF Urine WBC 0-1 0-1 /HPF Urine Squamous Epithelial Cells RARE 0-2 /HPF Urine Bacteria FEW None Seen /HPF Test 08/07/25 11:03 Range/Units White Cell Morphology Comment See comments Prothrombin Time 10.6 9.6-11.6 SEC Prothromb Time International Ratio 1.00 0.85-1.15 Activated Partial Thromboplast Time 29.5 26.3-35.5 SEC Current Medications Medications (Trade) Dose Ordered Sig/Willis Route PRN Reason Start Time Stop Time Status Last Admin Dose Admin Acetaminophen (TYLenol 500MG TAB) 500 mg Q6H PRN PO MILD PAIN (1-3) 08/07/25 14:00 09/06/25 13:59 08/07/25 18:09 500 MG Cefepime HCl (MAXipime 1 GM vial) 1 gm Q8H IVPB 08/07/25 14:00 08/17/25 13:59 08/08/25 06:00 1 GM Clindamycin HCl/ Dextrose 50 ml @ 100 mls/hr ONCE STAT IV 08/07/25 12:16 08/07/25 12:45 DC 08/07/25 12:56 100 MLS/HR Famotidine (Pepcid 20mg Vial) 20 mg BID IV 08/07/25 21:00 09/06/25 20:59 08/08/25 08:48 20 MG Insulin Glargine (LANtus 100 UNITS/ML 10 ML VIAL) 12 units DAILY SQ 08/08/25 09:00 09/07/25 08:59 08/08/25 08:47 12 UNITS Insulin Human Regular (humuLIN R 100 UNIT/ML 3ML) INSULIN SLIDING SCAL... ACHS SQ 08/07/25 16:30 09/06/25 16:29 08/08/25 08:48 4 UNIT Ketorolac Tromethamine (toRADol) 15 mg Q6H PRN IV MODERATE PAIN (4-6) 08/07/25 14:00 08/12/25 13:59 08/07/25 21:20 15 MG Magnesium Sulfate 50 ml @ 0 mls/hr PROTOCOL PRN IV HYPOMAGNESEMIA 08/07/25 14:00 09/06/25 13:59 Morphine Sulfate (morPHINE 4MG SYG) 2 mg Q4H PRN IVP SEVERE PAIN (7-10) 08/07/25 14:00 08/14/25 13:59 08/08/25 09:09 2 MG Ondansetron HCl (zoFRAN 4MG INJ) 4 mg Q6H PRN IVP NAUSEA/VOMITING 08/07/25 13:30 09/06/25 13:29 08/07/25 13:30 4 MG Potassium Chloride 100 ml @ 100 mls/hr AD PRN IV POTASSIUM PROTOCOL 08/07/25 14:00 09/06/25 13:59 Potassium Chloride (K-Dur/Klor-Con 20meq) 20 meq AD PRN PO POTASSIUM PROTOCOL 08/07/25 14:00 09/06/25 13:59 Potassium Chloride (KCl 10% Elixir 20meq/15ml) 20 meq AD PRN PO POTASSIUM PROTOCOL 08/07/25 14:00 09/06/25 13:59 Sodium Chloride 1,000 ml @ 100 mls/hr Q10H IV 08/07/25 14:00 09/06/25 13:59 08/08/25 08:49 100 MLS/HR Vancomycin HCl 250 ml @ 125 mls/hr Q12H IV 08/08/25 03:00 08/18/25 02:59 08/08/25 03:13 125 MLS/HR Vancomycin HCl (Vancomycin Protocol) 1 each AD IV 08/07/25 14:00 08/21/25 13:59 DIAGNOSTICS / RADIOLOGY: [ ] ASSESSMENT: Cellulitis involving the right big toe with open wound status post incision and drainage by Podiatry failed outpatient treatment POA Mild Hyponatremia Diabetes mellitus type2 Intractable pain to right big toe poa PLAN: - patient to be admitted to medical-surgical unit -in reference to cellulitis involving the right big toe. We will request consultation with Podiatry. We will follow up regarding I and D performed in [facility] for cultures. Patient will be started on vancomycin, cefepime. We will request consultation with consulted Infectious Disease and framing mechanic Microbiology: Wound cultures, blood cultures in process antibiotics vancomycin, cefepime IV. A.c. HS monitoring with sliding scale coverage A1c in am Replace electrolytes to keep potassium above 4.0 magnesium above 2.0 Labs in a.m. CBC CMP magnesium and CRP Continue DVT GI prophylaxis Continue pain management for adequate pain control added Sheldon 5mg/ 325 po every 6 hrs as needed Precautions, aggressive offloading nonweightbearing -further orders per hospitalization course all questions addressed ATTESTATION BY PHYSICIAN I have seen and examined the patient. I reviewed the documentation, medical decision making, and treatment plan as noted by the mid-level provider above. I agree with the findings and plan of care. DESHAUN RYAN MD, ELIZABETH NP Aug 08, 2025 11:07
--- NOTE | 2025-08-08 12:22 | NUR ---
[facility] Consult: Patient assessed by wound healing team. See wound assessment. Assessment and recommendations provided to primary nurse. Education provided. Wound care done. Addendum: 08/08/25 at 1431 by SILVIA NOVAK RN RN/ Amended: Links added.
[2025-08-08] MEDS: HYDROcodone/APAP 5/325 1 TAB TABLET PO PRN (12:59)
--- NOTE | 2025-08-08 15:39 | NUR ---
ROOM ASSIGNMENT GIVEN, PT IS CURRNETLY IN MRI / RAD DEPT PENDING PT TO RETURN.
[2025-08-08] MEDS ORDERED: GADOTERATE MEGLUMINE 10 MMOL/20 ML VIAL IV ONE (16:10)
[2025-08-08 17:10] VITALS: BP 111/69; PULSE 85; RESP 18; TEMP 98; O2SAT 98
--- NOTE | 2025-08-08 17:10 | NUR ---
PT ARRIVED VIA WHEELCHAIR. ABLE TO AMBULATE TO BED. ALERT AND ORIENTED X4. PT STATES PAIN 6 OF 10 TO RIGHT GREAT TOE. CALL LIGHT WITH IN REACH. BED POSITION TO LOWEST POSITION .FAMILY AT BEDSIDE
[2025-08-08 19:00] VITALS: BP 114/76; PULSE 88; RESP 18; TEMP 97.7
[2025-08-08] MEDS ORDERED: COMPOUND IV REFRIGERATED 1 EACH IVSOLN MISC PRN (20:00)
[2025-08-08 20:05] VITALS: O2SAT 98
--- NOTE | 2025-08-08 20:05 | NUR ---
MEDS SHIFT ASSESSMENT DONE, PLEASE REFER TO CHART. DUE MEDS ADMINISTERED, TOLERATED WELL. KEPT RESTED AND COMFORTABLE IN BED. CALL LIGHT WITHIN REACH.
[2025-08-08 23:00] VITALS: BP 114/75; PULSE 74; RESP 18; TEMP 98.1
[2025-08-09] VITALS (7 sets, daily range): BP systolic 116–135; BP diastolic 73–88; PULSE 77–87; RESP 18–20; TEMP 98–98.1; O2SAT 95–97
--- NOTE | 2025-08-09 05:23 | NUR ---
PAIN PT CALLS AND ASSISTED BY PCP TO THE RESTROOM. PT CLAIMS OF HEADACHE AND RT FOOT PAINS. MEDICATED WITH TORADOL IV. HUNG DUE CEFEPIME IV. KEPT RESTED AND COMFORTABLE IN BED. CALL LIGHT WITHIN REACH. WILL RE-ASSESS PT.
[2025-08-09 05:58] LABS: IMMATURE GRANULOCYTE ABSOLUTE 0.02 K/uL (0-1); NUCLEATED RED BLOOD CELLS 0.0 % (0.0-0.19); PLATELET COUNT (AUTO) 200 K/uL (130-400); RED BLOOD CELL COUNT(AUTO) 3.99 MIL/uL (4.00-5.50); RED CELL DISTRIBUTION WIDTH 11.9 % (11.0-15.5); WHITE BLOOD COUNT (AUTO) 6.0 K/uL (4.8-10.8)
[2025-08-09 06:16] LABS: ASPARTATE AMINOTRANSFERASE 17.0 U/L (10-37); CREATININE 0.7 mg/dL (0.5-1.0); GLOMERULAR FILTR. RATE CALC 109.0 mL/min (>90); GLUCOSE,RANDOM 225.0 mg/dL (70-105); LDL DIRECT 110.0 mg/dL (0-99); SODIUM SERUM 137.0 mmol/L (136-145); TOTAL PROTEIN, SERUM 6.8 g/dL (6.0-8.3); UREA NITROGEN, BLOOD 17.0 mg/dL (7-18)
[2025-08-09] MEDS: IODOSORB GEL 40GM TP SCH (08:52)
[2025-08-09] MEDS: PoTASSium chloRIDE 20MEQ ER 20 MEQ ERTAB PO PRN (08:54)
--- NOTE | 2025-08-09 11:16 | PN ---
[facility] PROGRESS NOTE Date of Service: Aug 09, 2025 Time of Service: 11:11 SUBJECTIVE: [ ] Patient stated that she was bitten by a possible spider she did not recall what kind of spider the bit her approximately two weeks ago. She was seen by her primary care physician she was treated with oral antibiotics a local care with no improvement at the condition. Most recently she was treated at the [place] or for her infection incision and drainage was performed at that time and patient was sent to the hospital for further IV antibiotics and wound care. 08/08/25 patient was seen in ED she is fully awake alert oriented x3. Right foot great toe infected cellulitis swollen dressing. continue with IV antibiotics ID we will be following.. Patient was already seen by mechanical maintenance foreman most likely we will need debridement. Imaging were reviewed. All questions addressed. 08/09/25 patient was seen earlier patient is lying in bed. Patient had a MRI done suspecting osteomyelitis pending results. No fever no chills reported ove rnight continues with broad-spectrum antibiotics. REVIEW OF SYSTEMS CONSTITUTIONAL: Positive for fever, chills, malaise NEUROLOGICAL: Denies headache, amaurosis fugax, motor weakness, sensory deficit, vertigo/spinning sensation, gait abnormalities, or tremors. ENT: No hearing loss, otalgia, otorrhea, rhinitis, rhinorrhea, hoarseness, or sore throat. CARDIOVASCULAR: Denies any exertional angina, dyspnea on exertion, orthopnea, paroxysmal nocturnal dyspnea, palpitations, life-threatening arrhythmias, claudication. PULMONARY: Denies any shortness of breath, cough, phlegm/sputum, hemoptysis, pleuritic chest pain. GASTROINTESTINAL: Denies any type of dysphagia to either liquids or solids. Denies nausea, vomiting, pyrosis, early satiety, abdominal pain, diarrhea, constipation, or changes in stool consistency or caliber. Denies coffee-ground emesis, hematemesis, hematochezia, or melanotic stools. GENITOURINARY: Denies frequency, urgency, nocturia, hematuria or incontinence (Storage/Irritative symptoms.) Low urinary stream, straining to void, urinary intermittency or hesitancy, splitting of the voiding stream, terminal dribbling. ENDOCRINOLOGIC: Denies polyuria, polydipsia, polyphagia or heat/cold intolerances. HEMATOLOGIC: Denies thrombophilia/previous clots, or coagulopathy/bleeding di sorders. ONCOLOGIC: Denies personal history of malignancy. DERMATOLOGIC: Denies rashes or pruritus. PSYCHIATRIC: Denies any suicidal or homicidal ideation. Denies hallucinations. Musculoskeletal: Pain in the right big toe PHYSICAL EXAM GENERAL APPEARANCE: The patient is awake, alert, and oriented, in no acute cardiopulmonary distress. NEUROLOGICAL: Cranial nerves II-XII grossly intact. Motor is 5/5 in bilateral upper and lower extremities proximal to distal. No sensory deficits. HEENT: Face is symmetric. Pupils are equal and reactive. Extraocular movements are intact. NECK: Supple. No JVD. No thyromegaly. No submental, submandibular, pre- /postauricular, occipital or supraclavicular lymphadenopathy. CHEST: Normal chest expansion. No Telemetry. LUNGS: Absence of any rales, rhonchi or any wheezing. CARDIOVASCULAR: Regular. S1 and S2 normal. No appreciable rubs, murmurs or gallops. ABDOMEN: Soft, nontender, and nondistended. There is no rebound, voluntary guarding, or rigidity. : Deferred. No [place]. EXTREMITIES: Patient currently has dressing present in the right big toe. There is open wound noted in the right big toe. There is minimal drainage noted. SKIN: No skin breakdown. Vital Signs (last 8hr) Date Time Temp Pulse Resp B/P (MAP) Pulse Ox O2 Delivery O2 Flow Rate FiO2 08/09/25 08:55 95 Room Air* 0 21 08/09/25 08:00 98.1 82 18 118/75 92 Room Air LABS: Laboratory: Test 08/09/25 05:49 08/09/25 05:32 08/08/25 17:21 08/07/25 13:59 Range/Units Whole Blood Glucose 231 H 70-110 MG/DL White Blood Count 6.0 4.8-10.8 K/uL Red Blood Count 3.99 L 4.00-5.50 MIL/uL Hemoglobin 11.4 L 12.0-16.0 g/dL Hematocrit 34.3 L 36-48 % Mean Corpuscular Volume 86.0 79-99 fL Mean Corpuscular Hemoglobin 28.6 27.0-33.0 pg Mean Corpuscular Hemoglobin Concent 33.2 32.0-36.0 g/dL Red Cell Distribution Width 11.9 11.0-15.5 % Platelet Count 200 130-400 K/uL Mean Platelet Volume 10.7 H 7.5-10.5 fL Immature Granulocyte % (Auto) 0.3 0-1 % Neutrophils (%) (Auto) 67.6 40.0-77.0 % Lymphocytes (%) (Auto) 20.6 L 21.0-51.0 % Monocytes (%) (Auto) 10.2 3.0-13.0 % Eosinophils (%) (Auto) 1.0 0.0-8.0 % Basophils (%) (Auto) 0.3 0.0-5.0 % Neutrophils # (Auto) 4.0 1.8-7.7 K/uL Lymphocytes # (Auto) 1.2 1.0-4.8 K/uL Monocytes # (Auto) 0.6 0.1-1.0 K/uL Eosinophils # (Auto) 0.06 0.00-0.70 K/uL Basophils # (Auto) 0.02 0.00-0.20 K/uL Absolute Immature Granulocyte (auto 0.02 0-1 K/uL Nucleated Red Blood Cells 0.0 0.0-0.19 % Sodium Level 137 136-145 mmol/L Potassium Level 3.8 3.5-5.1 mmol/L Chloride Level 104 101-111 mmol/L Carbon Dioxide Level 27 21-32 mmol/L Blood Urea Nitrogen 17 7-18 mg/dL Creatinine 0.7 0.5-1.0 mg/dL Glomerular Filtration Rate Calc 109 >90 mL/min Random Glucose 225 H 70-105 mg/dL Total Calcium 8.6 8.5-10.1 mg/dL Magnesium Level 1.90 1.80-2.40 mg/dL Total Bilirubin 0.8 0.2-1.0 mg/dL Aspartate Amino Transf (AST/SGOT) 17 10-37 U/L Alanine Aminotransferase (ALT/SGPT) 21 12-78 U/L Alkaline Phosphatase 136 50-136 U/L C-Reactive Protein, Quantitative 94.50 H 0.5-3.0 mg/L Total Protein 6.8 6.0-8.3 g/dL Albumin 2.6 L 3.5-5.0 g/dL Triglycerides Level 200 30-200 mg/dL Cholesterol Level 173 <200 mg/dL LDL Cholesterol 110 H 0-99 mg/dL HDL Cholesterol 31 L 35-85 mg/dL Bedside Glucose Comment Notified Nurse Lactic Acid Level 1.4 0.8-2.5 mmol/L Procalcitonin 0.33 0.05-0.5 ng/mL Thyroid Stimulating Hormone (TSH) 1.59 0.36-3.74 uIU/mL Test 08/07/25 12:50 Range/Units Urine Color LIGHT-YELLOW YELLOW Urine Appearance CLEAR CLEAR Urine pH 5.5 5.0-8.0 Urine Specific [place] 1.018 1.001-1.031 Urine Protein NEGATIVE NEGATIVE mg/dL Urine Glucose (UA) 300 H NEGATIVE mg/dL Urine Ketones 20 H NEGATIVE mg/dL Urine Occult Blood NEGATIVE NEGATIVE Urine Nitrate NEGATIVE NEGATIVE Urine Bilirubin NEGATIVE NEGATIVE mg/dL Urine Urobilinogen 0.2 0.2-1.0 mg/dL Urine Leukocyte Esterase NEGATIVE NEGATIVE Jese/uL Urine RBC 0-1 0-1 /HPF Urine WBC 0-1 0-1 /HPF Urine Squamous Epithelial Cells RARE 0-2 /HPF Urine Bacteria FEW None Seen /HPF Current Medications Medications (Trade) Dose Ordered Sig/Willis Route PRN Reason Start Time Stop Time Status Last Admin Dose Admin Acetaminophen (TYLenol 500MG TAB) 500 mg Q6H PRN PO MILD PAIN (1-3) 08/07/25 14:00 09/06/25 13:59 08/07/25 18:09 500 MG Acetaminophen/ Hydrocodone Bitart (NORco 5/325MG) 1 tab Q6H PRN PO MODERATE PAIN (4-6) 08/08/25 11:30 08/13/25 11:29 08/08/25 12:59 1 TAB Cadexomer Iodine (Iodosorb Gel 40gm) DAILY TP 08/09/25 09:00 09/08/25 08:59 08/09/25 08:52 1 APPL Cefepime HCl (MAXipime 1 GM vial) 1 gm Q8H IVPB 08/07/25 14:00 08/17/25 13:59 08/09/25 05:22 1 GM Clindamycin HCl/ Dextrose 50 ml @ 100 mls/hr ONCE STAT IV 08/07/25 12:16 08/07/25 12:45 DC 08/07/25 12:56 100 MLS/HR Enoxaparin Sodium (Lovenox) 30 mg DAILY SQ 08/09/25 09:00 09/08/25 08:59 Famotidine (Pepcid 20mg Vial) 20 mg BID IV 08/07/25 21:00 09/06/25 20:59 08/09/25 08:53 20 MG Fluticasone Propionate (FLOnase 50 mcg/ spray 16g bottle) 1 SPRAY DAILY EN 08/08/25 12:00 09/07/25 11:59 08/09/25 08:52 1 SPRAYS Fluticasone Propionate (FLOnase 50 mcg/ spray 16g bottle) 2 SPRAYS ONCE EN 08/08/25 11:00 08/08/25 11:07 DC Insulin Glargine (LANtus 100 UNITS/ML 10 ML VIAL) 12 units DAILY SQ 08/08/25 09:00 09/07/25 08:59 08/09/25 08:40 12 UNITS Insulin Human Regular (humuLIN R 100 UNIT/ML 3ML) INSULIN SLIDING SCAL... ACHS SQ 08/07/25 16:30 08/08/25 23:36 DC 08/08/25 21:45 7 UNIT Insulin Human Regular (humuLIN R 100 UNIT/ML 3ML) INSULIN SLIDING SCAL... ACHS SQ 08/09/25 07:30 09/08/25 07:29 08/09/25 06:11 8 UNIT Ketorolac Tromethamine (toRADol) 15 mg Q6H PRN IV MODERATE PAIN (4-6) 08/07/25 14:00 08/12/25 13:59 08/09/25 05:23 15 MG Magnesium Sulfate 50 ml @ 0 mls/hr PROTOCOL PRN IV HYPOMAGNESEMIA 08/07/25 14:00 09/06/25 13:59 Montelukast Sodium (SinguLAIR) 10 mg HS PO 08/08/25 21:00 09/07/25 20:59 08/08/25 20:02 10 MG Morphine Sulfate (morPHINE 4MG SYG) 2 mg Q4H PRN IVP SEVERE PAIN (7-10) 08/07/25 14:00 08/14/25 13:59 08/08/25 23:18 2 MG Ondansetron HCl (zoFRAN 4MG INJ) 4 mg Q6H PRN IVP NAUSEA/VOMITING 08/07/25 13:30 09/06/25 13:29 08/08/25 17:44 4 MG Potassium Chloride 100 ml @ 100 mls/hr AD PRN IV POTASSIUM PROTOCOL 08/07/25 14:00 09/06/25 13:59 Potassium Chloride (K-Dur/Klor-Con 20meq) 20 meq AD PRN PO POTASSIUM PROTOCOL 08/07/25 14:00 09/06/25 13:59 08/09/25 08:54 20 MEQ Potassium Chloride (KCl 10% Elixir 20meq/15ml) 20 meq AD PRN PO POTASSIUM PROTOCOL 08/07/25 14:00 09/06/25 13:59 Sodium Chloride 1,000 ml @ 100 mls/hr Q10H IV 08/07/25 14:00 09/06/25 13:59 08/08/25 20:02 100 MLS/HR Vancomycin HCl 250 ml @ 125 mls/hr Q12H IV 08/08/25 03:00 08/08/25 19:33 DC 08/08/25 03:13 125 MLS/HR Vancomycin HCl 250 ml @ 125 mls/hr Q12H IV 08/08/25 20:00 08/18/25 19:59 08/09/25 08:51 125 MLS/HR Vancomycin HCl (Vancomycin Protocol) 1 each AD IV 08/07/25 14:00 08/21/25 13:59 DIAGNOSTICS / RADIOLOGY: [ ] ASSESSMENT: Cellulitis involving the right big toe with open wound status post incision and drainage by Podiatry failed outpatient treatment POA Mild Hyponatremia Diabetes mellitus type2 Intractable pain to right big toe poa PLAN: - patient to be admitted to medical-surgical unit -in reference to cellulitis involving the right big toe. We will request consultation with Podiatry. We will follow up regarding I and D performed in [facility] for cultures. Patient will be started on vancomycin, cefepime. We will request consultation with consulted Infectious Disease and mechanical maintenance foreman Dr Davis possible ID early next week continue with local wound care. Microbiology: Wound cultures, blood cultures no growth Imaging: MRI: pending final report antibiotics vancomycin, cefepime IV. A.c. HS monitoring with sliding scale coverage and long acting insulin Lantus 12 units daily A1c in am DR Lezama consulted Replace electrolytes to keep potassium above 4.0 magnesium above 2.0 Labs in a.m. CBC CMP magnesium Continue DVT GI prophylaxis Continue pain management for adequate pain control added [place] 5mg/ 325 po every 6 hrs as needed Precautions, aggressive offloading nonweightbearing -further orders per hospitalization course all questions addressed ATTESTATION BY PHYSICIAN I have seen and examined the patient. I reviewed the documentation, medical decision making, and treatment plan as noted by the mid-level provider above. I agree with the findings and plan of care. DESHAUN RYAN MD, ELIZABETH NP Aug 09, 2025 11:16
[2025-08-09] MEDS: ENOXAPARIN SODIUM 30 MG/0.3 ML SQ SCH (12:10)
--- NOTE | 2025-08-09 16:41 | PN ---
INFECTIOUS DISEASE PROGRESS NOTE Date of Service: Aug 09, 2025 SUBJECTIVE: This is a 44-year-old female patient who presented to the hospital for evaluation of her right great toe after undergoing an incision and drainage by a industrial engineering director as an outpatient. Per report patient experienced a bite on her right toe from a spider of unknown species. Wound culture has been collected and preliminary results growing coagulase-negative Staphylococcus. Patient is currently on vancomycin and cefepime. We will follow follow up on the final culture results. PHYSICAL EXAM EYES: Anicteric. Pupils equal and reactive. HENT: No oral thrush seen, moist Oral mucosa. NECK: Supple, no JVD or thyromegaly. LUNGS: Good air entry. No rales, no rhonchi. CARDIOVASCULAR: S1, S2 regular. No murmur heard. ABDOMEN: Soft, non tender, bowel sounds present, no organomegaly. CENTRAL NERVOUS SYSTEM: Awake, alert, oriented x 3. SKIN: No rashes, no swelling. Right great toe wound. LYMPHATICS: No peripheral lymphadenopathy MUSCULOSKELETAL: No joint swelling, erythema or tenderness. EXTREMITIES: No cyanosis or clubbing. BACK: No deformity, no pressure ulcer. GENITOURINARY: No dysuria or hematuria. Vital Sign (Last 12 Hours) 08/09/25 08/09/25 08/09/25 08:00 08:55 12:00 Temp 98.1 98.1 Pulse 82 79 Resp 18 18 B/P (MAP) 118/75 129/84 Pulse Ox 92 95 96 O2 Delivery Room Air Room Air* Room Air O2 Flow Rate 0 FiO2 21 Intake & Output (last 24hrs) 08/08/25 08/08/25 08/09/25 15:00 23:00 07:00 Intake Total 100 ml 866.0 ml Balance 100 ml 866.0 ml LABS: Laboratory: Test 08/09/25 15:20 08/09/25 05:32 08/08/25 17:21 Range/Units Whole Blood Glucose 221 H 70-110 MG/DL White Blood Count 6.0 4.8-10.8 K/uL Red Blood Count 3.99 L 4.00-5.50 MIL/uL Hemoglobin 11.4 L 12.0-16.0 g/dL Hematocrit 34.3 L 36-48 % Mean Corpuscular Volume 86.0 79-99 fL Mean Corpuscular Hemoglobin 28.6 27.0-33.0 pg Mean Corpuscular Hemoglobin Concent 33.2 32.0-36.0 g/dL Red Cell Distribution Width 11.9 11.0-15.5 % Platelet Count 200 130-400 K/uL Mean Platelet Volume 10.7 H 7.5-10.5 fL Immature Granulocyte % (Auto) 0.3 0-1 % Neutrophils (%) (Auto) 67.6 40.0-77.0 % Lymphocytes (%) (Auto) 20.6 L 21.0-51.0 % Monocytes (%) (Auto) 10.2 3.0-13.0 % Eosinophils (%) (Auto) 1.0 0.0-8.0 % Basophils (%) (Auto) 0.3 0.0-5.0 % Neutrophils # (Auto) 4.0 1.8-7.7 K/uL Lymphocytes # (Auto) 1.2 1.0-4.8 K/uL Monocytes # (Auto) 0.6 0.1-1.0 K/uL Eosinophils # (Auto) 0.06 0.00-0.70 K/uL Basophils # (Auto) 0.02 0.00-0.20 K/uL Absolute Immature Granulocyte (auto 0.02 0-1 K/uL Nucleated Red Blood Cells 0.0 0.0-0.19 % Sodium Level 137 136-145 mmol/L Potassium Level 3.8 3.5-5.1 mmol/L Chloride Level 104 101-111 mmol/L Carbon Dioxide Level 27 21-32 mmol/L Blood Urea Nitrogen 17 7-18 mg/dL Creatinine 0.7 0.5-1.0 mg/dL Glomerular Filtration Rate Calc 109 >90 mL/min Random Glucose 225 H 70-105 mg/dL Total Calcium 8.6 8.5-10.1 mg/dL Magnesium Level 1.90 1.80-2.40 mg/dL Total Bilirubin 0.8 0.2-1.0 mg/dL Aspartate Amino Transf (AST/SGOT) 17 10-37 U/L Alanine Aminotransferase (ALT/SGPT) 21 12-78 U/L Alkaline Phosphatase 136 50-136 U/L C-Reactive Protein, Quantitative 94.50 H 0.5-3.0 mg/L Total Protein 6.8 6.0-8.3 g/dL Albumin 2.6 L 3.5-5.0 g/dL Triglycerides Level 200 30-200 mg/dL Cholesterol Level 173 <200 mg/dL LDL Cholesterol 110 H 0-99 mg/dL HDL Cholesterol 31 L 35-85 mg/dL Bedside Glucose Comment Notified Nurse DIAGNOSTICS / RADIOLOGY: PATIENT: BRUNO MOSS ACCT: [id number] LOC: [facility] U: [id number] AGE/SX: 44/F ROOM: [facility] RE08/07/[address]: LUIS HEAD MD : 1980 BED: 1 DIS: STATUS: ADM IN TLOC: SPEC: [id number] JEFF: 08/07/25 STATUS: RES REQ: [id number] RECD: 08/07/[address]: CHARITY GR NP SOURCE: TOE ENTR: 08/07/25-[address]: SELF,REFERRAL SPDESC: RIGHT BIG SIMINKYLEE Jabari LATIF ORDERED: AEROBIC CULTURE COMMENTS: Comment: RIGHT GREAT TOE ULCER Procedure Result King Date-Time AEROBIC CULTURE Preliminary 08/09/25-1139 MRL COLONY DESCRIPTION: REPORT 1: 1+ SKIN ETIENNE ; STUDIES TO CONTINUE COAGULASE NEGATIVE STAPHYLOCOCCUS ASSESSMENT: Right great toe spider bite, status post I&D as outpatient. Failed oral antibiotic therapy. Right foot cellulitis. Diabetes mellitus. PLAN: Continue vancomycin. Continue cefepime. Continue pain management. Continue GI prophylaxis. We will follow up on the final wound culture results. Wound care as recommended by industrial engineering director. Continue antidiabetics. This case was reviewed and discussed with my supervising physician Dr. Urrutia and the above assessment and plan was formulated and agreed upon. ATTESTATION BY PHYSICIAN I have seen and examined the patient. I reviewed the documentation, medical decision making, and treatment plan as noted by the mid-level provider above. I agree with the findings and plan of care. ÁNGELA URRUTIA MD, MIRTA L [facility] Aug 09, 2025 16:41
--- NOTE | 2025-08-09 19:08 | HMCIMG ---
EXAMINATION: NONCONTRAST MRI OF THE RIGHT FOOT. CLINICAL HISTORY: Rule out osteomyelitis. COMPARISON: None provided. TECHNIQUE: Multiplanar, multisequence MR images of the right foot were obtained without and with intravenous contrast. FINDINGS: There is mild marrow edema in the 1st proximal and distal phalanx. No corresponding hypointensity is noted on T1Wt images. There is focal irregular STIR hyperintense collection medial to the first proximal phalanx, approximately measuring 1.9 x 0.9 x 1.9 cm (AP by transverse by craniocaudal). There is subtle overlying skin ulceration. On post-contrast images it does not reveal any enhancement. Joint spaces are preserved. Visualized extensor and flexor tendons are normal in course and morphology without evidence of tenosynovitis. There is mild to moderate edema is seen in the muscles of the foot. Moderate dorsal subcutaneous edema is seen. IMPRESSION: 1. Focal irregular collection medial to the first proximal phalanx, measuring 1.9 x 0.9 x 1.9 cm, with overlying skin ulceration. 2. Mild marrow edema in the 1st proximal and distal phalanx. This could be reactive or reflect early osteomyelitis. /[place]
--- NOTE | 2025-08-09 19:55 | NUR ---
MEDS SHIFT ASSESSMENT DONE, PLEASE REFER TO CHART. PT CLAIMS OF PAINS TO RT FOOT. MEDICATED WITH NORCO PO AND DUE MEDS ADMINISTERED, TOLERATED WELL. KEPT RESTED AND COMFORTABLE IN BED. CALL LIGHT WITHIN REACH. WILL RE-ASSESS PT.
[2025-08-10] VITALS (8 sets, daily range): BP systolic 110–140; BP diastolic 69–92; PULSE 78–89; RESP 18–20; TEMP 97.7–98.3; O2SAT 95–99
--- NOTE | 2025-08-10 | NUR ---
PAIN PT CLAIMS INABILITY TO SLEEP DUE TO RT FOOT PAINS. MEDICATED WITH TORADOL IV. WARM PACKS APPLIED TO FEET REQUESTED BY PT. KEPT RESTED AND COMFORTABLE. CALL LIGHT WITHIN REACH. WILL RE-ASSESS PT.
--- NOTE | 2025-08-10 01:47 | CONS ---
INFECTIOUS DISEASE CONSULTATION DATE OF SERVICE: 08/08/2025 REQUESTING PHYSICIAN: Luis Gustafson MD REASON FOR CONSULTATION: Sepsis around her foot ulcer. HISTORY OF PRESENT ILLNESS: This is a 44-year-old female with history of diabetes mellitus and obesity, presented to the hospital with fever. Right great toe pain, swelling and redness. No history of trauma or fall. The patient probably was bitten by an insect. X-ray has been done which shows no acute findings. Arterial Doppler came back normal. No trauma or fall. Temperature is 101. The patient has been started on vancomycin and cefepime. The patient claims she has received a tetanus in the last few months. PAST MEDICAL HISTORY: * Diabetes mellitus. * Obesity. PAST SURGICAL HISTORY: * Tubal ligation. * section. ALLERGIES: No known drug allergies. CURRENT MEDICATIONS: Include. * Vancomycin. * Cefepime. * Pepcid. * Insulin. * Tylenol. * Zofran. SOCIAL HISTORY: Denies alcohol, tobacco or illicit drug use. FAMILY HISTORY: Positive for diabetes mellitus. REVIEW OF SYSTEMS: Greater than 10 systems were reviewed and negative except as documented above. PHYSICAL EXAMINATION: GENERAL: On examination, a young female, awake, . VITAL SIGNS: Temperature 98.6, pulse 91, respiratory rate 16, blood pressure 92/57. EYES: No icterus. Pupils equal and reactive. HENT: No oral thrush seen. Moist oral mucosa. NECK: Supple. No JVD or thyromegaly. LUNGS: Good air entry. No rales, no rhonchi. CARDIOVASCULAR: S1 and S2. Regular. No murmur heard. ABDOMEN: Full, soft, nontender. Bowel sounds are present. CENTRAL NERVOUS SYSTEM: Awake, alert, oriented x 3. No focal deficits. SKIN: No rashes. No itchiness. LYMPHATIC: There is right inguinal lymphadenopathy. BACK: No deformity or pressure ulcer. EXTREMITIES: With necrosis and blister involving the right great toe and first metatarsophalangeal joint. LABORATORY DATA: Sodium 132, potassium 3.4, BUN 15, creatinine 0.5, WBC 5.7, hemoglobin 1.6, platelets 182. Blood culture, no growth for one day. RADIOLOGY: X-rays show soft tissue swelling. Arterial Doppler unremarkable. ASSESSMENT: A 44-year-old female presented with a fever, right great toe pain, swelling and redness. CURRENT PROBLEMS: Include: * Diabetic foot ulcer. * Right foot cellulitis. * Possible right foot osteomyelitis. * Obesity. * Hypertension. * Diabetes mellitus. * Hypokalemia. PLAN: * Continue wound care. * Continue vancomycin. * Continue cefepime. * Continue pain management. * Continue anti-diabetic. * Monitor electrolytes and correct as needed. * Obtain MRI of the right foot. * The patient will be followed up closely. Thank you for allowing me to participate in the care of this patient. TID: [id number] RECEIPT: [id number] MTDD
--- NOTE | 2025-08-10 05:13 | NUR ---
MEDS PT SLEPT AT INTERVALS DURING THE SHIFT. PT STILL ASLEEP AT THIS TIME WITH RESPIRATIONS EVEN AND UNLABORED. NO DISTRESS NOTED. IV CEFEPIME AND NEW IVF BAG OF NS HUNG. KEPT UNDISTURBED FOR NOW. CALL LIGHT WITHIN REACH. FOR MORE CARE.
[2025-08-10 05:54] LABS: IMMATURE GRANULOCYTE ABSOLUTE 0.01 K/uL (0-1); NUCLEATED RED BLOOD CELLS 0.0 % (0.0-0.19); PLATELET COUNT (AUTO) 210 K/uL (130-400); RED BLOOD CELL COUNT(AUTO) 3.71 MIL/uL (4.00-5.50); RED CELL DISTRIBUTION WIDTH 11.9 % (11.0-15.5); WHITE BLOOD COUNT (AUTO) 6.0 K/uL (4.8-10.8)
[2025-08-10 06:23] LABS: ASPARTATE AMINOTRANSFERASE 17.0 U/L (10-37); CREATININE 0.7 mg/dL (0.5-1.0); GLOMERULAR FILTR. RATE CALC 109.0 mL/min (>90); GLUCOSE,RANDOM 265.0 mg/dL (70-105); SODIUM SERUM 135.0 mmol/L (136-145); TOTAL PROTEIN, SERUM 6.6 g/dL (6.0-8.3); UREA NITROGEN, BLOOD 21.0 mg/dL (7-18)
--- NOTE | 2025-08-10 07:04 | PN ---
[facility] PROGRESS NOTE Date of Service: Aug 10, 2025 Time of Service: 07:03 SUBJECTIVE: [ ] Patient stated that she was bitten by a possible spider she did not recall what kind of spider the bit her approximately two weeks ago. She was seen by her primary care physician she was treated with oral antibiotics a local care with no improvement at the condition. Most recently she was treated at the [place] or for her infection incision and drainage was performed at that time and patient was sent to the hospital for further IV antibiotics and wound care. 08/08/25 patient was seen in ED she is fully awake alert oriented x3. Right foot great toe infected cellulitis swollen dressing. continue with IV antibiotics ID we will be following.. Patient was already seen by shopping inspector most likely we will need debridement. Imaging were reviewed. All questions addressed. 08/09/25 patient was seen earlier patient is lying in bed. Patient had a MRI done suspecting osteomyelitis pending results. No fever no chills reported ove rnight continues with broad-spectrum antibiotics. 08/10/25 patient is seen and examined patient continues with redness and swelling to green. MRI early osteomyelitis. Continues broad-spectrum antibiotics waiting for shopping inspector for possible debridement. Denies fever chills. REVIEW OF SYSTEMS CONSTITUTIONAL: Positive for fever, chills, malaise NEUROLOGICAL: Denies headache, amaurosis fugax, motor weakness, sensory deficit, vertigo/spinning sensation, gait abnormalities, or tremors. ENT: No hearing loss, otalgia, otorrhea, rhinitis, rhinorrhea, hoarseness, or sore throat. CARDIOVASCULAR: Denies any exertional angina, dyspnea on exertion, orthopnea, paroxysmal nocturnal dyspnea, palpitations, life-threatening arrhythmias, claudication. PULMONARY: Denies any shortness of breath, cough, phlegm/sputum, hemoptysis, pleuritic chest pain. GASTROINTESTINAL: Denies any type of dysphagia to either liquids or solids. Denies nausea, vomiting, pyrosis, early satiety, abdominal pain, diarrhea, constipation, or changes in stool consistency or caliber. Denies coffee-ground emesis, hematemesis, hematochezia, or melanotic stools. GENITOURINARY: Denies frequency, urgency, nocturia, hematuria or incontinence (Storage/Irritative symptoms.) Low urinary stream, straining to void, urinary intermittency or hesitancy, splitting of the voiding stream, terminal dribbling. ENDOCRINOLOGIC: Denies polyuria, polydipsia, polyphagia or heat/cold intolerances. HEMATOLOGIC: Denies thrombophilia/previous clots, or coagulopathy/bleeding disorders. ONCOLOGIC: Denies personal history of malignancy. DERMATOLOGIC: Denies rashes or pruritus. PSYCHIATRIC: Denies any suicidal or homicidal ideation. Denies hallucinations. Musculoskeletal: Pain in the right big toe PHYSICAL EXAM GENERAL APPEARANCE: The patient is awake, alert, and oriented, in no acute cardiopulmonary distress. NEUROLOGICAL: Cranial nerves II-XII grossly intact. Motor is 5/5 in bilateral upper and lower extremities proximal to distal. No sensory deficits. HEENT: Face is symmetric. Pupils are equal and reactive. Extraocular movements are intact. NECK: Supple. No JVD. No thyromegaly. No submental, submandibular, pre- /postauricular, occipital or supraclavicular lymphadenopathy. CHEST: Normal chest expansion. No Telemetry. LUNGS: Absence of any rales, rhonchi or any wheezing. CARDIOVASCULAR: Regular. S1 and S2 normal. No appreciable rubs, murmurs or gallops. ABDOMEN: Soft, nontender, and nondistended. There is no rebound, voluntary guarding, or rigidity. : Deferred. No [place]. EXTREMITIES: Patient currently has dressing present in the right big toe. There is open wound noted in the right big toe. There is minimal drainage noted. SKIN: No skin breakdown. Vital Signs (last 8hr) Date Time Temp Pulse Resp B/P (MAP) Pulse Ox O2 Delivery O2 Flow Rate FiO2 08/10/25 04:00 98.1 78 20 110/75 96 Room Air 08/10/25 00:00 98.1 81 20 122/86 97 Room Air LABS: Laboratory: Test 08/10/25 05:46 08/10/25 05:24 08/09/25 18:47 08/09/25 05:32 Range/Units White Blood Count 6.0 4.8-10.8 K/uL Red Blood Count 3.71 L 4.00-5.50 MIL/uL Hemoglobin 10.8 L 12.0-16.0 g/dL Hematocrit 30.8 L 36-48 % Mean Corpuscular Volume 83.0 79-99 fL Mean Corpuscular Hemoglobin 29.1 27.0-33.0 pg Mean Corpuscular Hemoglobin Concent 35.1 32.0-36.0 g/dL Red Cell Distribution Width 11.9 11.0-15.5 % Platelet Count 210 130-400 K/uL Mean Platelet Volume 10.7 H 7.5-10.5 fL Immature Granulocyte % (Auto) 0.2 0-1 % Neutrophils (%) (Auto) 64.1 40.0-77.0 % Lymphocytes (%) (Auto) 25.4 21.0-51.0 % Monocytes (%) (Auto) 8.5 3.0-13.0 % Eosinophils (%) (Auto) 1.5 0.0-8.0 % Basophils (%) (Auto) 0.3 0.0-5.0 % Neutrophils # (Auto) 3.9 1.8-7.7 K/uL Lymphocytes # (Auto) 1.5 1.0-4.8 K/uL Monocytes # (Auto) 0.5 0.1-1.0 K/uL Eosinophils # (Auto) 0.09 0.00-0.70 K/uL Basophils # (Auto) 0.02 0.00-0.20 K/uL Absolute Immature Granulocyte (auto 0.01 0-1 K/uL Nucleated Red Blood Cells 0.0 0.0-0.19 % Sodium Level 135 L 136-145 mmol/L Potassium Level 4.3 3.5-5.1 mmol/L Chloride Level 102 101-111 mmol/L Carbon Dioxide Level 25 21-32 mmol/L Blood Urea Nitrogen 21 H 7-18 mg/dL Creatinine 0.7 0.5-1.0 mg/dL Glomerular Filtration Rate Calc 109 >90 mL/min Random Glucose 265 H 70-105 mg/dL Total Calcium 8.1 L 8.5-10.1 mg/dL Magnesium Level 1.90 1.80-2.40 mg/dL Total Bilirubin 0.6 0.2-1.0 mg/dL Aspartate Amino Transf (AST/SGOT) 17 10-37 U/L Alanine Aminotransferase (ALT/SGPT) 21 12-78 U/L Alkaline Phosphatase 167 H 50-136 U/L Total Protein 6.6 6.0-8.3 g/dL Albumin 2.6 L 3.5-5.0 g/dL Whole Blood Glucose 267 #H 70-110 MG/DL Vancomycin Level Trough 12.7 10.0-20.0 UG/ML C-Reactive Protein, Quantitative 94.50 H 0.5-3.0 mg/L Triglycerides Level 200 30-200 mg/dL Cholesterol Level 173 <200 mg/dL LDL Cholesterol 110 H 0-99 mg/dL HDL Cholesterol 31 L 35-85 mg/dL Test 08/08/25 17:21 Range/Units Bedside Glucose Comment Notified Nurse Current Medications Medications (Trade) Dose Ordered Sig/Willis Route PRN Reason Start Time Stop Time Status Last Admin Dose Admin Acetaminophen (TYLenol 500MG TAB) 500 mg Q6H PRN PO MILD PAIN (1-3) 08/07/25 14:00 09/06/25 13:59 08/07/25 18:09 500 MG Acetaminophen/ Hydrocodone Bitart (NORco 5/325MG) 1 tab Q6H PRN PO MODERATE PAIN (4-6) 08/08/25 11:30 08/13/25 11:29 08/09/25 19:55 1 TAB Cadexomer Iodine (Iodosorb Gel 40gm) DAILY TP 08/09/25 09:00 09/08/25 08:59 08/09/25 08:52 1 APPL Cefepime HCl (MAXipime 1 GM vial) 1 gm Q8H IVPB 08/07/25 14:00 08/17/25 13:59 08/10/25 05:13 1 GM Clindamycin HCl/ Dextrose 50 ml @ 100 mls/hr ONCE STAT IV 08/07/25 12:16 08/07/25 12:45 DC 08/07/25 12:56 100 MLS/HR Enoxaparin Sodium (Lovenox) 30 mg DAILY SQ 08/09/25 09:00 09/08/25 08:59 08/09/25 12:10 30 MG Famotidine (Pepcid 20mg Vial) 20 mg BID IV 08/07/25 21:00 09/06/25 20:59 08/09/25 19:55 20 MG Fluticasone Propionate (FLOnase 50 mcg/ spray 16g bottle) 1 SPRAY DAILY EN 08/08/25 12:00 09/07/25 11:59 08/09/25 08:52 1 SPRAYS Fluticasone Propionate (FLOnase 50 mcg/ spray 16g bottle) 2 SPRAYS ONCE EN 08/08/25 11:00 08/08/25 11:07 DC Insulin Glargine (LANtus 100 UNITS/ML 10 ML VIAL) 12 units DAILY SQ 08/08/25 09:00 09/07/25 08:59 08/09/25 08:40 12 UNITS Insulin Human Regular (humuLIN R 100 UNIT/ML 3ML) INSULIN SLIDING SCAL... ACHS SQ 08/07/25 16:30 08/08/25 23:36 DC 08/08/25 21:45 7 UNIT Insulin Human Regular (humuLIN R 100 UNIT/ML 3ML) INSULIN SLIDING SCAL... ACHS SQ 08/09/25 07:30 09/08/25 07:29 08/10/25 05:54 10 UNIT Ketorolac Tromethamine (toRADol) 15 mg Q6H PRN IV MODERATE PAIN (4-6) 08/07/25 14:00 08/12/25 13:59 08/10/25 00:02 15 MG Magnesium Sulfate 50 ml @ 0 mls/hr PROTOCOL PRN IV HYPOMAGNESEMIA 08/07/25 14:00 09/06/25 13:59 Montelukast Sodium (SinguLAIR) 10 mg HS PO 08/08/25 21:00 09/07/25 20:59 08/09/25 19:55 10 MG Morphine Sulfate (morPHINE 4MG SYG) 2 mg Q4H PRN IVP SEVERE PAIN (7-10) 08/07/25 14:00 08/14/25 13:59 08/08/25 23:18 2 MG Ondansetron HCl (zoFRAN 4MG INJ) 4 mg Q6H PRN IVP NAUSEA/VOMITING 08/07/25 13:30 09/06/25 13:29 08/08/25 17:44 4 MG Potassium Chloride 100 ml @ 100 mls/hr AD PRN IV POTASSIUM PROTOCOL 08/07/25 14:00 09/06/25 13:59 Potassium Chloride (K-Dur/Klor-Con 20meq) 20 meq AD PRN PO POTASSIUM PROTOCOL 08/07/25 14:00 09/06/25 13:59 08/09/25 12:08 20 MEQ Potassium Chloride (KCl 10% Elixir 20meq/15ml) 20 meq AD PRN PO POTASSIUM PROTOCOL 08/07/25 14:00 09/06/25 13:59 Sodium Chloride 1,000 ml @ 100 mls/hr Q10H IV 08/07/25 14:00 09/06/25 13:59 08/10/25 05:16 100 MLS/HR Vancomycin HCl 250 ml @ 125 mls/hr Q12H IV 08/08/25 03:00 08/08/25 19:33 DC 08/08/25 03:13 125 MLS/HR Vancomycin HCl 250 ml @ 125 mls/hr Q12H IV 08/08/25 20:00 08/18/25 19:59 08/09/25 19:55 125 MLS/HR Vancomycin HCl (Vancomycin Protocol) 1 each AD IV 08/07/25 14:00 08/21/25 13:59 DIAGNOSTICS / RADIOLOGY: [ ] ASSESSMENT: Cellulitis involving the right big toe with open wound status post incision and drainage by Podiatry failed outpatient treatment POA Great right toe cellulitis when abscess POA Mild Hyponatremia Diabetes mellitus type2 Intractable pain to right big toe poa PLAN: - patient to be admitted to medical-surgical unit -in reference to cellulitis involving the right big toe. We will request consultation with Podiatry. We will follow up regarding I and D performed in [facility] for cultures. Patient will be started on vancomycin, cefepime. We will request consultation with consulted Infectious Disease and shopping inspector Dr Davis possible ID early next week continue with local wound care. Microbiology: Wound cultures, blood cultures no growth Imaging: MRI: Early osteomyelitis antibiotics vancomycin, cefepime IV. wound Care management [facility]. A.c. HS monitoring with sliding scale coverage and long acting insulin Lantus 12 units daily A1c in am DR Lezama consulted Replace electrolytes to keep potassium above 4.0 magnesium above 2.0 Labs in a.m. CBC CMP magnesium Continue DVT GI prophylaxis Continue pain management for adequate pain control added [place] 5mg/ 325 po every 6 hrs as needed Precautions, aggressive offloading nonweightbearing -further orders per hospitalization course all questions addressed ATTESTATION BY PHYSICIAN I have seen and examined the patient. I reviewed the documentation, medical decision making, and treatment plan as noted by the mid-level provider above. I agree with the findings and plan of care. DESHAUN RYAN MD,MALU Leiva 28, 2025 07:04
--- NOTE | 2025-08-10 10:11 | PN ---
PROGRESS NOTE Date of Service: Aug 10, 2025 Time of Service: 10:05 SUBJECTIVE: This 44 years old female was seen for follow up evaluation on wounds secondary to spider bite on her right hallux. The patient has been stable afebrile white count was noted to be normal at this time MRIs studies this possibility of acute osteomyelitis. REVIEW OF SYSTEMS CONSTITUTIONAL: Denies fever, chills, or fatigue. HEAD/FACE: No signs of trauma. EENT: Denies eye pain, blurred vision, double vision, or light sensitivity. RESPIRATORY: Denies shortness of breath, cough, wheezing CARDIOVASCULAR: Denies chest pain, palpitation, syncope GASTROINTESTINAL/ABDOMINAL: Denies abdominal pain, constipation, diarrhea, nausea or vomiting GENITOURINARY: Denies dysuria or hematuria. MUSCULOSKELETAL: Denies joint pain, tenderness, or trauma. INTEGUMENTARY: Cellulitis and rash on her great toe right. Wound from necrosis secondary to spider bite. Possible brown recluse spider. NEUROLOGICAL/PSYCH: Denies anxiety, depression, heat or cold intolerance. PHYSICAL EXAM EYES: Anicteric. Pupils equal and reactive. HENT: No oral thrush seen, moist Oral mucosa NECK: Supple, no JVD or thyromegaly. LUNGS: Good air entry. No rales, no rhonchi. CARDIOVASCULAR: S1, S2 regular. No murmur heard. ABDOMEN: Soft, non tender, bowel sounds present, no organomegaly CENTRAL NERVOUS SYSTEM: Awake, alert, oriented x 3. No focal deficits. SKIN: Ulceration and necrotic ulcer was noted on the most medial aspect of the hallux also a pre ulcer area was noted of the plantar hallux same foot right. Localized cellulitis and epidermolysis. LYMPHATICS: No peripheral lymphadenopathy MUSCULOSKELETAL: No joint swelling, erythema or tenderness. EXTREMITIES: No cyanosis or clubbing BACK: No deformity, no pressure ulcer. GENITOURINARY: No dysuria or hematuria Vital Signs (last 8hr) Date Time Temp Pulse Resp B/P (MAP) Pulse Ox O2 Delivery O2 Flow Rate FiO2 08/10/25 08:00 98.2 81 18 116/69 95 Room Air 08/10/25 04:00 98.1 78 20 110/75 96 Room Air LABS: Laboratory: Test 08/10/25 05:46 08/10/25 05:24 08/09/25 18:47 08/09/25 05:32 Range/Units White Blood Count 6.0 4.8-10.8 K/uL Red Blood Count 3.71 L 4.00-5.50 MIL/uL Hemoglobin 10.8 L 12.0-16.0 g/dL Hematocrit 30.8 L 36-48 % Mean Corpuscular Volume 83.0 79-99 fL Mean Corpuscular Hemoglobin 29.1 27.0-33.0 pg Mean Corpuscular Hemoglobin Concent 35.1 32.0-36.0 g/dL Red Cell Distribution Width 11.9 11.0-15.5 % Platelet Count 210 130-400 K/uL Mean Platelet Volume 10.7 H 7.5-10.5 fL Immature Granulocyte % (Auto) 0.2 0-1 % Neutrophils (%) (Auto) 64.1 40.0-77.0 % Lymphocytes (%) (Auto) 25.4 21.0-51.0 % Monocytes (%) (Auto) 8.5 3.0-13.0 % Eosinophils (%) (Auto) 1.5 0.0-8.0 % Basophils (%) (Auto) 0.3 0.0-5.0 % Neutrophils # (Auto) 3.9 1.8-7.7 K/uL Lymphocytes # (Auto) 1.5 1.0-4.8 K/uL Monocytes # (Auto) 0.5 0.1-1.0 K/uL Eosinophils # (Auto) 0.09 0.00-0.70 K/uL Basophils # (Auto) 0.02 0.00-0.20 K/uL Absolute Immature Granulocyte (auto 0.01 0-1 K/uL Nucleated Red Blood Cells 0.0 0.0-0.19 % Sodium Level 135 L 136-145 mmol/L Potassium Level 4.3 3.5-5.1 mmol/L Chloride Level 102 101-111 mmol/L Carbon Dioxide Level 25 21-32 mmol/L Blood Urea Nitrogen 21 H 7-18 mg/dL Creatinine 0.7 0.5-1.0 mg/dL Glomerular Filtration Rate Calc 109 >90 mL/min Random Glucose 265 H 70-105 mg/dL Total Calcium 8.1 L 8.5-10.1 mg/dL Magnesium Level 1.90 1.80-2.40 mg/dL Total Bilirubin 0.6 0.2-1.0 mg/dL Aspartate Amino Transf (AST/SGOT) 17 10-37 U/L Alanine Aminotransferase (ALT/SGPT) 21 12-78 U/L Alkaline Phosphatase 167 H 50-136 U/L Total Protein 6.6 6.0-8.3 g/dL Albumin 2.6 L 3.5-5.0 g/dL Whole Blood Glucose 267 #H 70-110 MG/DL Vancomycin Level Trough 12.7 10.0-20.0 UG/ML C-Reactive Protein, Quantitative 94.50 H 0.5-3.0 mg/L Triglycerides Level 200 30-200 mg/dL Cholesterol Level 173 <200 mg/dL LDL Cholesterol 110 H 0-99 mg/dL HDL Cholesterol 31 L 35-85 mg/dL Test 08/08/25 17:21 Range/Units Bedside Glucose Comment Notified Nurse DIAGNOSTICS / RADIOLOGY: MPRESSION: 1. Focal irregular collection medial to the first proximal phalanx, measuring 1.9 x 0.9 x 1.9 cm, with overlying skin ulceration. 2. Mild marrow edema in the 1st proximal and distal phalanx. This could be reactive or reflect early osteomyelitis. ASSESSMENT: Diabetic ulcer hallux right. Necrotic ulcer secondary to a spider bite with reactive hyperemia. Cellulitis secondary to by the bite. Reactive bone marrow edema versus osteomyelitis early stages. Diabetes. PLAN: Continue IV antibiotics therapy. Continue local wound care with Iodosorb. Plan for excisional debridement of wound Monday. Case discussed with the patient. Patient is explained about the severity of brown recluse spider bites and the long-term treatment plans. Patient agrees to the proposed plan and we will continue with the future plan for excisional debridement of this wound on Monday. LATRICE RIVERA DPM Aug 10, 2025 10:11
--- NOTE | 2025-08-10 20:15 | NUR ---
MEDS SHIFT ASSESSMENT DONE, PLEASE REFER TO CHART. PT COMPLAINTS OF RT FOOT PAINS. MEDICATED WITH TORADOL DUE MEDS ADMINISTERED, TOLERATED WELL. KEPT RESTED AND COMFORTABLE IN BED. CALL LIGHT WITHIN REACH. WILL RE-ASSESS PT.
--- NOTE | 2025-08-10 22:00 | NUR ---
SHOWER PT JUST HAD HER SHOWER, TOLERATED ACTIVITY WELL. PLACED BACK ON IVF AND IV VANCO. DRESSING CHANGED TO RT FOOT, CLEANSED WITH NS, PAT DRY AND APPLIED IODOSORB, COVERED WITH GAUZE AND SECURED WITH KERLIX AND TAPE. ENCOURAGED TO REST AND SLEEP. CALL LIGHT WITHIN REACH.
[2025-08-11] VITALS (7 sets, daily range): BP systolic 110–138; BP diastolic 73–94; PULSE 82–88; RESP 17–20; TEMP 98.2–99.2; O2SAT 98–100
--- NOTE | 2025-08-11 06:00 | NUR ---
MEDS PT SLEPT AT INTERVALS DURING THE SHIFT. NO DISTRESS NOTED. KEPT COMFORTABLE IN BED. DUE IV CEFEPIME HUNG. CALL LIGHT WITHIN REACH. FOR MORE CARE.
[2025-08-11 06:17] LABS: IMMATURE GRANULOCYTE ABSOLUTE 0.03 K/uL (0-1); NUCLEATED RED BLOOD CELLS 0.0 % (0.0-0.19); PLATELET COUNT (AUTO) 230 K/uL (130-400); RED BLOOD CELL COUNT(AUTO) 3.71 MIL/uL (4.00-5.50); RED CELL DISTRIBUTION WIDTH 11.9 % (11.0-15.5); WHITE BLOOD COUNT (AUTO) 8.0 K/uL (4.8-10.8)
[2025-08-11 06:41] LABS: ASPARTATE AMINOTRANSFERASE 15.0 U/L (10-37); CREATININE 0.6 mg/dL (0.5-1.0); GLOMERULAR FILTR. RATE CALC 113.0 mL/min (>90); GLUCOSE,RANDOM 190.0 mg/dL (70-105); SODIUM SERUM 138.0 mmol/L (136-145); TOTAL PROTEIN, SERUM 6.5 g/dL (6.0-8.3); UREA NITROGEN, BLOOD 15.0 mg/dL (7-18)
[2025-08-11] MEDS: MAGNESIUM 2GM PREMIX 50ML 50 ML IV PRN (06:54)
--- NOTE | 2025-08-11 07:02 | CONS ---
CONSULT NOTE: Endocrinology Consult Chief complaint: right big toe pain Reason for consult:uncontrolled dm-2 DOS:08/11/25 HISTORY OF PRESENT ILLNESS: This is a 44-year-old female with past medical history of diabetes mellitus type 2 presented to the hospital secondary to pain in her right big toe. The patient states around two weeks ago she had a bite in her right big toe from a spider. She states she was wearing socks and she was not able to see the type of spider that bit her. She noted swelling and tenderness on the toe. She had increasing redness with associated ulcer. She took antibiotics at home without improvement. She also was having a fever, chills. She denied any chest pain, shortness of breath, abdominal pain, nausea, vomiting. Denied any diarrhea, constipation. She was given IV antibiotics x3 by her primary care provider without improvement in her symptoms. She was following laundry supervisor today it [facility] as outpatient, who did incision and drainage of the right big toe. Patient was thereafter recommended to come to the hospital for further evaluation. Labs were notable for white count of 8.2, hemoglobin was 13.4, platelet count was 236 K, sodium was 133, potassium was 3.4, creatinine was 0.7. The patient had a foot x-ray done which showed no acute findings. Home diabetic regimen: lispro insulin 20 units tid before meals Hba1c 14.5% glucose runs greater than 200 mg/dl. REVIEW OF SYSTEMS CONSTITUTIONAL: Positive for fever, chills, malaise but improving. NEUROLOGICAL: Denies headache, amaurosis fugax, motor weakness, sensory deficit, vertigo/spinning sensation, gait abnormalities, or tremors. ENT: No hearing loss, otalgia, otorrhea, rhinitis, rhinorrhea, hoarseness, or sore throat. CARDIOVASCULAR: Denies any exertional angina, dyspnea on exertion, orthopnea, paroxysmal nocturnal dyspnea, palpitations, life-threatening arrhythmias, claudication. PULMONARY: Denies any shortness of breath, cough, phlegm/sputum, hemoptysis, pleuritic chest pain. GASTROINTESTINAL: Denies any type of dysphagia to either liquids or solids. Denies nausea, vomiting, pyrosis, early satiety, abdominal pain, diarrhea, constipation, or changes in stool consistency or caliber. Denies coffee-ground emesis, hematemesis, hematochezia, or melanotic stools. GENITOURINARY: Denies frequency, urgency, nocturia, hematuria or incontinence (Storage/Irritative symptoms.) Low urinary stream, straining to void, urinary intermittency or hesitancy, splitting of the voiding stream, terminal dribbling. ENDOCRINOLOGIC: Denies polyuria, polydipsia, polyphagia or heat/cold intolerances. HEMATOLOGIC: Denies thrombophilia/previous clots, or coagulopathy/bleeding disorders. ONCOLOGIC: Denies personal history of malignancy. DERMATOLOGIC: Denies rashes or pruritus. PSYCHIATRIC: Denies any suicidal or homicidal ideation. Denies hallucinations. Musculoskeletal: Pain in the right big toe PAST MEDICAL HISTORY: Diabetes mellitus type 2 PAST SURGICAL HISTORY: History of , history of tubal ligation PAST SOCIAL HISTORY: Denied any smoking, alcohol, drug use FAMILY HISTORY: Denied any pertinent family history Coded Allergies: No Known Drug Allergies (Unverified Allergy, Unknown, 08/07/25) PHYSICAL EXAM GENERAL APPEARANCE: The patient is awake, alert, and oriented, in no acute cardiopulmonary distress. NEUROLOGICAL: Cranial nerves II-XII grossly intact. Motor is 5/5 in bilateral upper and lower extremities proximal to distal. No sensory deficits. HEENT: Face is symmetric. Pupils are equal and reactive. Extraocular movements are intact. NECK: Supple. No JVD. No thyromegaly. No submental, submandibular, pre- /postauricular, occipital or supraclavicular lymphadenopathy. CHEST: Normal chest expansion. No Telemetry. LUNGS: Absence of any rales, rhonchi or any wheezing. CARDIOVASCULAR: Regular. S1 and S2 normal. No appreciable rubs, murmurs or gallops. ABDOMEN: Soft, nontender, and nondistended. There is no rebound, voluntary guarding, or rigidity. : Deferred. No [place]. EXTREMITIES: Patient currently has dressing present in the right big toe. SKIN: No skin breakdown. DIAGNOSTICS / RADIOLOGY: Foot x-ray showed no acute findings ASSESSMENT: uncontrolled type 2 DM, POA she wa diagnosed with dm-2 two weeks ago. glucose runs greater than 200 mg/dl. Cellulitis involving the right big toe with open wound status post incision and drainage by Podiatry failed outpatient treatment POA I&D pending Mild Hyponatremia - improved PLAN: continue Lantus 15 units daily and adjust for fasting glucose. start Regular insulin 5 units three times before meals and adjust for post- prandial glucose. Continue medium dose sliding scale insulin. Monitor glucose q x 6 hourly. Continue carbs consistent diet. Keep glucose less than 180 mg/dl. Patient will need lantus 30 units daily and lispro insulin 10 units tid before meals at discharge. Thanks for allowing me to participate in patient care and will continue to follow up. Vital Signs 08/10/25 08/11/25 20:15 04:00 Temp 99.1 Pulse 88 Resp 20 B/P (MAP) 115/76 Pulse Ox 98 O2 Delivery Room Air O2 Flow Rate 0 FiO2 21 Hematology Labs: Test 08/11/25 05:53 Range/Units White Blood Count 8.0 4.8-10.8 K/uL Red Blood Count 3.71 L 4.00-5.50 MIL/uL Hemoglobin 10.4 L 12.0-16.0 g/dL Hematocrit 31.3 L 36-48 % Mean Corpuscular Volume 84.4 79-99 fL Mean Corpuscular Hemoglobin 28.0 27.0-33.0 pg Mean Corpuscular Hemoglobin Concent 33.2 32.0-36.0 g/dL Red Cell Distribution Width 11.9 11.0-15.5 % Platelet Count 230 130-400 K/uL Mean Platelet Volume 10.3 7.5-10.5 fL Immature Granulocyte % (Auto) 0.4 0-1 % Neutrophils (%) (Auto) 71.7 40.0-77.0 % Lymphocytes (%) (Auto) 18.9 L 21.0-51.0 % Monocytes (%) (Auto) 7.4 3.0-13.0 % Eosinophils (%) (Auto) 1.3 0.0-8.0 % Basophils (%) (Auto) 0.3 0.0-5.0 % Neutrophils # (Auto) 5.7 1.8-7.7 K/uL Lymphocytes # (Auto) 1.5 1.0-4.8 K/uL Monocytes # (Auto) 0.6 0.1-1.0 K/uL Eosinophils # (Auto) 0.10 0.00-0.70 K/uL Basophils # (Auto) 0.02 0.00-0.20 K/uL Absolute Immature Granulocyte (auto 0.03 0-1 K/uL Nucleated Red Blood Cells 0.0 0.0-0.19 % Chemistry Labs: Test 08/11/25 05:53 08/11/25 05:23 Range/Units Sodium Level 138 136-145 mmol/L Potassium Level 3.9 3.5-5.1 mmol/L Chloride Level 105 101-111 mmol/L Carbon Dioxide Level 23 21-32 mmol/L Blood Urea Nitrogen 15 7-18 mg/dL Creatinine 0.6 0.5-1.0 mg/dL Glomerular Filtration Rate Calc 113 >90 mL/min Random Glucose 190 H 70-105 mg/dL Total Calcium 8.2 L 8.5-10.1 mg/dL Magnesium Level 1.80 1.80-2.40 mg/dL Total Bilirubin 0.6 0.2-1.0 mg/dL Aspartate Amino Transf (AST/SGOT) 15 10-37 U/L Alanine Aminotransferase (ALT/SGPT) 19 12-78 U/L Alkaline Phosphatase 152 H 50-136 U/L Total Protein 6.5 6.0-8.3 g/dL Albumin 2.5 L 3.5-5.0 g/dL Whole Blood Glucose 189 H 70-110 MG/DL Current Medications Medications (Trade) Dose Ordered Sig/Willis Route Start Time Stop Time Status Last Admin Dose Admin Cadexomer Iodine (Iodosorb Gel 40gm) DAILY TP 08/09/25 09:00 09/08/25 08:59 08/10/25 22:00 1 APPL Cefepime HCl (MAXipime 1 GM vial) 1 gm Q8H IVPB 08/07/25 14:00 08/17/25 13:59 08/11/25 05:22 1 GM Clindamycin HCl/ Dextrose 50 ml @ 100 mls/hr ONCE STAT IV 08/07/25 12:16 08/07/25 12:45 DC 08/07/25 12:56 100 MLS/HR Enoxaparin Sodium (Lovenox) 30 mg DAILY SQ 08/09/25 09:00 09/08/25 08:59 08/10/25 07:57 30 MG Famotidine (Pepcid 20mg Vial) 20 mg BID IV 08/07/25 21:00 09/06/25 20:59 08/10/25 20:11 20 MG Fluticasone Propionate (FLOnase 50 mcg/ spray 16g bottle) 1 SPRAY DAILY EN 08/08/25 12:00 09/07/25 11:59 08/10/25 07:58 1 SPRAYS Fluticasone Propionate (FLOnase 50 mcg/ spray 16g bottle) 2 SPRAYS ONCE EN 08/08/25 11:00 08/08/25 11:07 DC Insulin Glargine (LANtus 100 UNITS/ML 10 ML VIAL) 12 units DAILY SQ 08/08/25 09:00 09/07/25 08:59 08/10/25 08:14 12 UNITS Insulin Human Regular (humuLIN R 100 UNIT/ML 3ML) 5 unit TIDAC SQ 08/10/25 17:00 09/09/25 16:59 08/11/25 06:00 5 UNIT Insulin Human Regular (humuLIN R 100 UNIT/ML 3ML) INSULIN SLIDING SCAL... ACHS SQ 08/07/25 16:30 08/08/25 23:36 DC 08/08/25 21:45 7 UNIT Insulin Human Regular (humuLIN R 100 UNIT/ML 3ML) INSULIN SLIDING SCAL... ACHS SQ 08/09/25 07:30 09/08/25 07:29 08/11/25 05:59 4 UNIT Montelukast Sodium (SinguLAIR) 10 mg HS PO 08/08/25 21:00 09/07/25 20:59 08/10/25 20:11 10 MG Sodium Chloride 1,000 ml @ 100 mls/hr Q10H IV 08/07/25 14:00 09/06/25 13:59 08/10/25 20:11 100 MLS/HR Vancomycin HCl 250 ml @ 125 mls/hr Q12H IV 08/08/25 03:00 08/08/25 19:33 DC 08/08/25 03:13 125 MLS/HR Vancomycin HCl 250 ml @ 125 mls/hr Q12H IV 08/08/25 20:00 08/18/25 19:59 08/10/25 20:11 125 MLS/HR Vancomycin HCl (Vancomycin Protocol) 1 each AD IV 08/07/25 14:00 08/21/25 13:59 VETO MORRIS MD Aug 11, 2025 07:02
[2025-08-11 09:23] LABS: AMPHET/METH SCREEN,URINE NEGATIVE (NEGATIVE); BARBITURATE SCREEN, URINE NEGATIVE (NEGATIVE); CANNABINOID SCREEN,URINE NEGATIVE (NEGATIVE); COCAINE SCREEN,URINE NEGATIVE (NEGATIVE)
--- NOTE | 2025-08-11 12:51 | PN ---
[facility] PROGRESS NOTE Date of Service: Aug 11, 2025 Time of Service: 12:28 SUBJECTIVE: [ ] Patient stated that she was bitten by a possible spider she did not recall what kind of spider the bit her approximately two weeks ago. She was seen by her primary care physician she was treated with oral antibiotics a local care with no improvement at the condition. Most recently she was treated at the [place] or for her infection incision and drainage was performed at that time and patient was sent to the hospital for further IV antibiotics and wound care. 08/08/25 patient was seen in ED she is fully awake alert oriented x3. Right foot great toe infected cellulitis swollen dressing. continue with IV antibiotics ID we will be following.. Patient was already seen by c python developer most likely we will need debridement. Imaging were reviewed. All questions addressed. 08/09/25 patient was seen earlier patient is lying in bed. Patient had a MRI done suspecting osteomyelitis pending results. No fever no chills reported ove rnight continues with broad-spectrum antibiotics. 08/10/25 patient is seen and examined patient continues with redness and swelling to green. MRI early osteomyelitis. Continues broad-spectrum antibiotics waiting for c python developer for possible debridement. Denies fever chills. 08/11/25 THE PATIENT WAS SEEN EARLIER TODAY. PATIENT IS SCHEDULED FOR I AND D TOMORROW MORNING. PATIENT CONTINUES WITH BROAD-SPECTRUM ANTIBIOTICS AND PAIN MANAGEMENT. REVIEW OF SYSTEMS CONSTITUTIONAL: Positive for fever, chills, malaise NEUROLOGICAL: Denies headache, amaurosis fugax, motor weakness, sensory deficit, vertigo/spinning sensation, gait abnormalities, or tremors. ENT: No hearing loss, otalgia, otorrhea, rhinitis, rhinorrhea, hoarseness, or sore throat. CARDIOVASCULAR: Denies any exertional angina, dyspnea on exertion, orthopnea, paroxysmal nocturnal dyspnea, palpitations, life-threatening arrhythmias, claudication. PULMONARY: Denies any shortness of breath, cough, phlegm/sputum, hemoptysis, pleuritic chest pain. GASTROINTESTINAL: Denies any type of dysphagia to either liquids or solids. Denies nausea, vomiting, pyrosis, early satiety, abdominal pain, diarrhea, constipation, or changes in stool consistency or caliber. Denies coffee-ground emesis, hematemesis, hematochezia, or melanotic stools. GENITOURINARY: Denies frequency, urgency, nocturia, hematuria or incontinence (Storage/Irritative symptoms.) Low urinary stream, straining to void, urinary intermittency or hesitancy, splitting of the voiding stream, terminal dribbling. ENDOCRINOLOGIC: Denies polyuria, polydipsia, polyphagia or heat/cold intolerances. HEMATOLOGIC: Denies thrombophilia/previous clots, or coagulopathy/bleeding disorders. ONCOLOGIC: Denies personal history of malignancy. DERMATOLOGIC: Denies rashes or pruritus. PSYCHIATRIC: Denies any suicidal or homicidal ideation. Denies hallucinations. Musculoskeletal: Pain in the right big toe PHYSICAL EXAM GENERAL APPEARANCE: The patient is awake, alert, and oriented, in no acute cardiopulmonary distress. NEUROLOGICAL: Cranial nerves II-XII grossly intact. Motor is 5/5 in bilateral upper and lower extremities proximal to distal. No sensory deficits. HEENT: Face is symmetric. Pupils are equal and reactive. Extraocular movements are intact. NECK: Supple. No JVD. No thyromegaly. No submental, submandibular, pre- /postauricular, occipital or supraclavicular lymphadenopathy. CHEST: Normal chest expansion. No Telemetry. LUNGS: Absence of any rales, rhonchi or any wheezing. CARDIOVASCULAR: Regular. S1 and S2 normal. No appreciable rubs, murmurs or ga llops. ABDOMEN: Soft, nontender, and nondistended. There is no rebound, voluntary guarding, or rigidity. : Deferred. No [place]. EXTREMITIES: Patient currently has dressing present in the right big toe. There is open wound noted in the right big toe. There is minimal drainage noted. SKIN: No skin breakdown. Vital Signs (last 8hr) Date Time Temp Pulse Resp B/P (MAP) Pulse Ox O2 Delivery O2 Flow Rate FiO2 08/11/25 08:00 98.2 82 18 110/73 100 Room Air LABS: Laboratory: Test 08/11/25 11:25 08/11/25 06:36 08/11/25 05:53 08/09/25 18:47 Range/Units Whole Blood Glucose 146 H 70-110 MG/DL Urine Opiates Screen NEGATIVE NEGATIVE Urine Barbiturates Screen NEGATIVE NEGATIVE Urine Phencyclidine Screen NEGATIVE NEGATIVE Urine Amphetamines Screen NEGATIVE NEGATIVE Urine Benzodiazepines Screen NEGATIVE NEGATIVE Urine Cocaine Screen NEGATIVE NEGATIVE Urine Marijuana (THC) Screen NEGATIVE NEGATIVE White Blood Count 8.0 4.8-10.8 K/uL Red Blood Count 3.71 L 4.00-5.50 MIL/uL Hemoglobin 10.4 L 12.0-16.0 g/dL Hematocrit 31.3 L 36-48 % Mean Corpuscular Volume 84.4 79-99 fL Mean Corpuscular Hemoglobin 28.0 27.0-33.0 pg Mean Corpuscular Hemoglobin Concent 33.2 32.0-36.0 g/dL Red Cell Distribution Width 11.9 11.0-15.5 % Platelet Count 230 130-400 K/uL Mean Platelet Volume 10.3 7.5-10.5 fL Immature Granulocyte % (Auto) 0.4 0-1 % Neutrophils (%) (Auto) 71.7 40.0-77.0 % Lymphocytes (%) (Auto) 18.9 L 21.0-51.0 % Monocytes (%) (Auto) 7.4 3.0-13.0 % Eosinophils (%) (Auto) 1.3 0.0-8.0 % Basophils (%) (Auto) 0.3 0.0-5.0 % Neutrophils # (Auto) 5.7 1.8-7.7 K/uL Lymphocytes # (Auto) 1.5 1.0-4.8 K/uL Monocytes # (Auto) 0.6 0.1-1.0 K/uL Eosinophils # (Auto) 0.10 0.00-0.70 K/uL Basophils # (Auto) 0.02 0.00-0.20 K/uL Absolute Immature Granulocyte (auto 0.03 0-1 K/uL Nucleated Red Blood Cells 0.0 0.0-0.19 % Sodium Level 138 136-145 mmol/L Potassium Level 3.9 3.5-5.1 mmol/L Chloride Level 105 101-111 mmol/L Carbon Dioxide Level 23 21-32 mmol/L Blood Urea Nitrogen 15 7-18 mg/dL Creatinine 0.6 0.5-1.0 mg/dL Glomerular Filtration Rate Calc 113 >90 mL/min Random Glucose 190 H 70-105 mg/dL Total Calcium 8.2 L 8.5-10.1 mg/dL Magnesium Level 1.80 1.80-2.40 mg/dL Total Bilirubin 0.6 0.2-1.0 mg/dL Aspartate Amino Transf (AST/SGOT) 15 10-37 U/L Alanine Aminotransferase (ALT/SGPT) 19 12-78 U/L Alkaline Phosphatase 152 H 50-136 U/L Total Protein 6.5 6.0-8.3 g/dL Albumin 2.5 L 3.5-5.0 g/dL Vancomycin Level Trough 12.7 10.0-20.0 UG/ML Current Medications Medications (Trade) Dose Ordered Sig/Willis Route PRN Reason Start Time Stop Time Status Last Admin Dose Admin Acetaminophen (TYLenol 500MG TAB) 500 mg Q6H PRN PO MILD PAIN (1-3) 08/07/25 14:00 09/06/25 13:59 08/11/25 00:40 500 MG Acetaminophen/ Hydrocodone Bitart (NORco 5/325MG) 1 tab Q6H PRN PO MODERATE PAIN (4-6) 08/08/25 11:30 08/11/25 07:06 DC 08/10/25 16:34 1 TAB Cadexomer Iodine (Iodosorb Gel 40gm) DAILY TP 08/09/25 09:00 09/08/25 08:59 08/10/25 22:00 1 APPL Cefepime HCl (MAXipime 1 GM vial) 1 gm Q8H IVPB 08/07/25 14:00 08/17/25 13:59 08/11/25 05:22 1 GM Clindamycin HCl/ Dextrose 50 ml @ 100 mls/hr ONCE STAT IV 08/07/25 12:16 08/07/25 12:45 DC 08/07/25 12:56 100 MLS/HR Docusate Sodium (COLace 100MG CAP) 100 mg BID PRN PO CONSTIPATION 08/10/25 20:30 09/09/25 20:29 08/10/25 20:11 100 MG Enoxaparin Sodium (Lovenox) 30 mg DAILY SQ 08/09/25 09:00 09/08/25 08:59 08/11/25 09:00 30 MG Famotidine (Pepcid 20mg Vial) 20 mg BID IV 08/07/25 21:00 09/06/25 20:59 08/11/25 09:00 20 MG Fluticasone Propionate (FLOnase 50 mcg/ spray 16g bottle) 1 SPRAY DAILY EN 08/08/25 12:00 09/07/25 11:59 08/11/25 09:00 1 SPRAYS Fluticasone Propionate (FLOnase 50 mcg/ spray 16g bottle) 2 SPRAYS ONCE EN 08/08/25 11:00 08/08/25 11:07 DC Insulin Glargine (LANtus 100 UNITS/ML 10 ML VIAL) 12 units DAILY SQ 08/08/25 09:00 08/11/25 07:03 DC 08/10/25 08:14 12 UNITS Insulin Glargine (LANtus 100 UNITS/ML 10 ML VIAL) 15 units DAILY SQ 08/11/25 09:00 09/10/25 08:59 08/11/25 12:17 15 UNITS Insulin Human Regular (humuLIN R 100 UNIT/ML 3ML) 5 unit TIDAC SQ 08/10/25 17:00 09/09/25 16:59 08/11/25 06:00 5 UNIT Insulin Human Regular (humuLIN R 100 UNIT/ML 3ML) INSULIN SLIDING SCAL... ACHS SQ 08/07/25 16:30 08/08/25 23:36 DC 08/08/25 21:45 7 UNIT Insulin Human Regular (humuLIN R 100 UNIT/ML 3ML) INSULIN SLIDING SCAL... ACHS SQ 08/09/25 07:30 09/08/25 07:29 08/11/25 05:59 4 UNIT Ketorolac Tromethamine (toRADol) 15 mg Q6H PRN IV MODERATE PAIN (4-6) 08/07/25 14:00 08/12/25 13:59 08/11/25 03:34 15 MG Magnesium Sulfate 50 ml @ 0 mls/hr PROTOCOL PRN IV HYPOMAGNESEMIA 08/07/25 14:00 09/06/25 13:59 08/11/25 06:54 25 MLS/HR Montelukast Sodium (SinguLAIR) 10 mg HS PO 08/08/25 21:00 09/07/25 20:59 08/10/25 20:11 10 MG Morphine Sulfate (morPHINE 4MG SYG) 2 mg Q4H PRN IVP SEVERE PAIN (7-10) 08/07/25 14:00 08/14/25 13:59 08/08/25 23:18 2 MG Ondansetron HCl (zoFRAN 4MG INJ) 4 mg Q6H PRN IVP NAUSEA/VOMITING 08/07/25 13:30 09/06/25 13:29 08/08/25 17:44 4 MG Potassium Chloride 100 ml @ 100 mls/hr AD PRN IV POTASSIUM PROTOCOL 08/07/25 14:00 09/06/25 13:59 Potassium Chloride (K-Dur/Klor-Con 20meq) 20 meq AD PRN PO POTASSIUM PROTOCOL 08/07/25 14:00 09/06/25 13:59 08/09/25 12:08 20 MEQ Potassium Chloride (KCl 10% Elixir 20meq/15ml) 20 meq AD PRN PO POTASSIUM PROTOCOL 08/07/25 14:00 09/06/25 13:59 Sodium Chloride 1,000 ml @ 100 mls/hr Q10H IV 08/07/25 14:00 09/06/25 13:59 08/11/25 08:00 100 MLS/HR Vancomycin HCl 250 ml @ 125 mls/hr Q12H IV 08/08/25 03:00 08/08/25 19:33 DC 08/08/25 03:13 125 MLS/HR Vancomycin HCl 250 ml @ 125 mls/hr Q12H IV 08/08/25 20:00 08/18/25 19:59 08/11/25 08:00 125 MLS/HR Vancomycin HCl (Vancomycin Protocol) 1 each AD IV 08/07/25 14:00 08/21/25 13:59 DIAGNOSTICS / RADIOLOGY: [ ] ASSESSMENT: Cellulitis involving the right big toe with open wound status post incision and drainage by Podiatry failed outpatient treatment POA Great right toe cellulitis with abscess POA Mild Hyponatremia Diabetes mellitus type2 Intractable pain to right big toe poa EARLY [id number] proximal and distal phalanx. POA depression active PLAN: - patient to be admitted to medical-surgical unit -in reference to cellulitis involving the right big toe. Network Control Technician: ID, c python developer Dr Davis SCHEDULED FOR ID TOMORROW Microbiology: Wound cultures, blood cultures no growth Imaging: MRI: Early osteomyelitis antibiotics vancomycin, cefepime IV. wound Care management Medihoney. A.c. HS monitoring with sliding scale coverage and long acting insulin Lantus 12 units daily Replace electrolytes to keep potassium above 4.0 magnesium above 2.0 Labs in a.m. CBC CMP magnesium Continue DVT GI prophylaxis Continue pain management for adequate pain control added [place] 5mg/ 325 po every 6 hrs as needed Precautions, aggressive offloading nonweightbearing -further orders per hospitalization course all questions addressed ATTESTATION BY PHYSICIAN I have seen and examined the patient. I reviewed the documentation, medical decision making, and treatment plan as noted by the mid-level provider above. I agree with the findings and plan of care. DESHAUN RYAN MD, ELIZABETH NP Aug 11, 2025 12:51
--- NOTE | 2025-08-11 17:00 | NUR ---
DISCUSSED POC W DR. Adam- INSURANCE LIMITATIONS ADVISED DR. Adam THAT PATIENTS' INSURANCE WILL PAY FOR NOTHING . ADVISED HIM THAT IF IV ABX ARE NEEDED WE CAN DO IT AT THE [facility] ONCE DAILY AND ASSIST WITH YAR[facility] VISITS. STATED WOULD REVIEW FINAL CULTURES PENDING
--- NOTE | 2025-08-11 22:42 | PN ---
INFECTIOUS DISEASE PROGRESS NOTE Date of Service: Aug 11, 2025 SUBJECTIVE: This is a 44-year-old female patient who was seen and examined at bedside in room 323. The right foot is swollen and with erythema. Patient is scheduled to undergo an excisional debridement of right hallux ulcer tomorrow. The preliminary wound culture results is growing Gram-positive cocci in chains. Continues on vancomycin and cefepime. We will follow follow up on the final culture results. PHYSICAL EXAM EYES: Anicteric. Pupils equal and reactive. HENT: No oral thrush seen, moist Oral mucosa. NECK: Supple, no JVD or thyromegaly. LUNGS: Good air entry. No rales, no rhonchi. CARDIOVASCULAR: S1, S2 regular. No murmur heard. ABDOMEN: Soft, non tender, bowel sounds present, no organomegaly. CENTRAL NERVOUS SYSTEM: Awake, alert, oriented x 3. SKIN: No rashes, no swelling. Right great toe wound and cellulitis. LYMPHATICS: No peripheral lymphadenopathy MUSCULOSKELETAL: No joint swelling, erythema or tenderness. EXTREMITIES: No cyanosis or clubbing. BACK: No deformity, no pressure ulcer. GENITOURINARY: No dysuria or hematuria. Vital Sign (Last 12 Hours) 08/11/25 08/11/25 08/11/25 12:00 16:00 20:00 Temp 98.2 98.4 Pulse 83 83 86 Resp 18 17 20 B/P (MAP) 129/83 129/79 138/94 Pulse Ox 100 97 98 O2 Delivery Room Air Room Air Room Air Intake & Output (last 24hrs) 08/10/25 08/10/25 08/11/25 15:00 23:00 07:00 Intake Total 260.0 ml 1710.0 ml 879.0 ml Balance 260.0 ml 1710.0 ml 879.0 ml LABS: Laboratory: Test 08/11/25 20:14 08/11/25 18:42 08/11/25 06:36 08/11/25 05:53 Range/Units Whole Blood Glucose 147 H 70-110 MG/DL Vancomycin Level Trough 15.8 # 10.0-20.0 UG/ML Urine Opiates Screen NEGATIVE NEGATIVE Urine Barbiturates Screen NEGATIVE NEGATIVE Urine Phencyclidine Screen NEGATIVE NEGATIVE Urine Amphetamines Screen NEGATIVE NEGATIVE Urine Benzodiazepines Screen NEGATIVE NEGATIVE Urine Cocaine Screen NEGATIVE NEGATIVE Urine Marijuana (THC) Screen NEGATIVE NEGATIVE White Blood Count 8.0 4.8-10.8 K/uL Red Blood Count 3.71 L 4.00-5.50 MIL/uL Hemoglobin 10.4 L 12.0-16.0 g/dL Hematocrit 31.3 L 36-48 % Mean Corpuscular Volume 84.4 79-99 fL Mean Corpuscular Hemoglobin 28.0 27.0-33.0 pg Mean Corpuscular Hemoglobin Concent 33.2 32.0-36.0 g/dL Red Cell Distribution Width 11.9 11.0-15.5 % Platelet Count 230 130-400 K/uL Mean Platelet Volume 10.3 7.5-10.5 fL Immature Granulocyte % (Auto) 0.4 0-1 % Neutrophils (%) (Auto) 71.7 40.0-77.0 % Lymphocytes (%) (Auto) 18.9 L 21.0-51.0 % Monocytes (%) (Auto) 7.4 3.0-13.0 % Eosinophils (%) (Auto) 1.3 0.0-8.0 % Basophils (%) (Auto) 0.3 0.0-5.0 % Neutrophils # (Auto) 5.7 1.8-7.7 K/uL Lymphocytes # (Auto) 1.5 1.0-4.8 K/uL Monocytes # (Auto) 0.6 0.1-1.0 K/uL Eosinophils # (Auto) 0.10 0.00-0.70 K/uL Basophils # (Auto) 0.02 0.00-0.20 K/uL Absolute Immature Granulocyte (auto 0.03 0-1 K/uL Nucleated Red Blood Cells 0.0 0.0-0.19 % Sodium Level 138 136-145 mmol/L Potassium Level 3.9 3.5-5.1 mmol/L Chloride Level 105 101-111 mmol/L Carbon Dioxide Level 23 21-32 mmol/L Blood Urea Nitrogen 15 7-18 mg/dL Creatinine 0.6 0.5-1.0 mg/dL Glomerular Filtration Rate Calc 113 >90 mL/min Random Glucose 190 H 70-105 mg/dL Total Calcium 8.2 L 8.5-10.1 mg/dL Magnesium Level 1.80 1.80-2.40 mg/dL Total Bilirubin 0.6 0.2-1.0 mg/dL Aspartate Amino Transf (AST/SGOT) 15 10-37 U/L Alanine Aminotransferase (ALT/SGPT) 19 12-78 U/L Alkaline Phosphatase 152 H 50-136 U/L Total Protein 6.5 6.0-8.3 g/dL Albumin 2.5 L 3.5-5.0 g/dL DIAGNOSTICS / RADIOLOGY: PATIENT: BRUNO MOSS ACCT: [id number] LOC: [facility] U: [id number] AGE/SX: 44/F ROOM: 323 RE08/07/[address]: LUIS HEAD MD : 1980 BED: 1 DIS: STATUS: ADM IN TLOC: SPEC: [id number] JEFF: 08/07/25 STATUS: RES REQ: [id number] RECD: 08/07/[address]: CHARITY GR NP SOURCE: TOE ENTR: 08/07/25-[address]: SELF,REFERRAL SPDESC: RIGHT BIG SIMINKYLEE DO ORDERED: AEROBIC CULTURE COMMENTS: Comment: RIGHT GREAT TOE ULCER Procedure Result King Date-Time AEROBIC CULTURE Preliminary 08/09/25-1139 MRL COLONY DESCRIPTION: REPORT 1: 1+ SKIN ETIENNE ; STUDIES TO CONTINUE COAGULASE NEGATIVE STAPHYLOCOCCUS ASSESSMENT: Right great toe spider bite, status post I&D as outpatient. Failed oral antibiotic therapy. Right foot cellulitis. Diabetes mellitus. PLAN: Continue vancomycin. Continue cefepime. Continue pain management. Continue GI prophylaxis. We will follow up on the final wound culture results. Continue antidiabetics. Podiatry has evaluated patient and will be undergoing excisional debridement of right hallux ulcer tomorrow. This case was reviewed and discussed with my supervising physician Dr. Urrutia and the above assessment and plan was formulated and agreed upon. ATTESTATION BY PHYSICIAN I have seen and examined the patient. I reviewed the documentation, medical decision making, and treatment plan as noted by the mid-level provider above. I agree with the findings and plan of care. ÁNGELA URRUTIA MD, [facility] Aug 11, 2025 22:42
[2025-08-12] VITALS (24 sets, daily range): BP systolic 113–151; BP diastolic 75–96; PULSE 73–100; RESP 15–20; TEMP 97.8–98.8; O2SAT 93–98
[2025-08-12 05:43] LABS: CREATININE 0.5 mg/dL (0.5-1.0); GLOMERULAR FILTR. RATE CALC 118.0 mL/min (>90); GLUCOSE,RANDOM 205.0 mg/dL (70-105); SODIUM SERUM 137.0 mmol/L (136-145); UREA NITROGEN, BLOOD 22.0 mg/dL (7-18)
[2025-08-12] MEDS ORDERED: LIDOCAINE HCL 1% 20 ML VIAL ONE (06:43)
[2025-08-12] MEDS ORDERED: MIDAZOLAM HCL 1 MG/ML 2ML VIAL ONE (06:46)
--- NOTE | 2025-08-12 07:38 | NUR ---
PATIENT REPORT RECEIVED REPORT FROM [facility] PACU NURSE. PATIENT UNDERWENT I&D WITH DR. RIVERA WITH LOCAL SEDATION AND FOOT BLOCK. DRESSING TO RIGHT BIG TOE. CULTURES TAKEN.
--- NOTE | 2025-08-12 07:51 | OP ---
Operative Note: DATE OF PROCEDURE: 08/12/25 SURGEON: LATRICE RIVERA DPM DISTRICT WILDLIFE MANAGER: Or Tech ANESTHESIA: Local MAC 1% xylocaine 0.25% Marcaine plain total of 20 cc to right foot ANESTHESIOLOGIST/DOOR FURRING INSTALLER: Julio Broussard CRNA PREOPERATIVE DIAGNOSIS: Ulcer of the right foot 1st metatarsal and hallux secondary to brown recluse spider bite POSTOPERATIVE DIAGNOSIS: Ulcer right foot 1st metatarsal hallux secondary to brown recluse spider bite SYNOPSIS: This 44 years old female was bitten by a brown recluse spider apparently developed cellulitis ulcer and necrosis of the area of the at this time was brought to the emergency room and then was started treatment with the antibiotics at this moment brought to the operating room for debridement of necrotic tissue from the ulcer. Patient educated on the disease and agree to the treatment plan at this moment. PROCEDURE: Excisional debridement of soft tissue necrosis to the level of the tendon on the 1st metatarsal and hallux right ESTIMATED BLOOD LOSS: 10 cc INDICATIONS: Necrotic tissue and cellulitis associated with the spy the right. DESCRIPTION OF PROCEDURE: Patient was brought into the operating room table placed in the supine position on the IV sedation local anesthesia was achieved via local infiltration 1% xylocaine 0.25% Marcaine plain a total of 20 cc injected in the forefoot area. At this moment the foot was prepped and dairy draped in the usual sterile fashion. Attention was directed towards the medial aspect of the metatarsophalangeal joint area were area of necrosis ulceration was identified this area of necrosis was excised easily debrided completely down to the bone level. At this moment approximately half a cc of purulent discharge was obtained from this area this was drained completely further debridement was performed utilizing blunt instrumentation of the dorsal plantar and proximal areas of the metatarsophalangeal joint some more purulent discharge was noted to be arising from the plantar aspect of the hallux this was drained completely further debridement was completed utilizing a rongeur at this time the area was flushed utilizing copious amounts of saline solution prior to this cultures and sensitivity were obtained. A total of 1 L of saline solution was utilizing for flushing. Dressing was applied utilizing Xeroform dressing 4x4s and Kerlix patient tolerated procedure and anesthesia well. Was sent to recovery room then to the floor for continued local wound care and IV antibiotic therapy. LATRICE RIVERA DPM Aug 12, 2025 07:51
--- NOTE | 2025-08-12 08:05 | NUR ---
UNIT ARRIVAL RECEIVED PATIENT FROM [facility] PACU NURSE. PATIENT AWAKE AND ALERT. PATIENT DENIES PAIN AT THIS TIME. CALI BANDAGE TO RIGHT FOOT, DRESSING CLEAN DRY AND INTACT.
--- NOTE | 2025-08-12 11:14 | PN ---
[facility] PROGRESS NOTE Date of Service: Aug 12, 2025 Time of Service: 11:09 SUBJECTIVE: [ ] Patient stated that she was bitten by a possible spider she did not recall what kind of spider the bit her approximately two weeks ago. She was seen by her primary care physician she was treated with oral antibiotics a local care with no improvement at the condition. Most recently she was treated at the [place] or for her infection incision and drainage was performed at that time and patient was sent to the hospital for further IV antibiotics and wound care. 08/08/25 patient was seen in ED she is fully awake alert oriented x3. Right foot great toe infected cellulitis swollen dressing. continue with IV antibiotics ID we will be following.. Patient was already seen by hospital pharmacy technician most likely we will need debridement. Imaging were reviewed. All questions addressed. 08/09/25 patient was seen earlier patient is lying in bed. Patient had a MRI done suspecting osteomyelitis pending results. No fever no chills reported ove rnight continues with broad-spectrum antibiotics. 08/10/25 patient is seen and examined patient continues with redness and swelling to green. MRI early osteomyelitis. Continues broad-spectrum antibiotics waiting for hospital pharmacy technician for possible debridement. Denies fever chills. 08/11/25 THE PATIENT WAS SEEN EARLIER TODAY. PATIENT IS SCHEDULED FOR I AND D TOMORROW MORNING. PATIENT CONTINUES WITH [facility]IOT[facility] AND PAIN MANAGEMENT. 08/12/25 patient is seen earlier today scheduled for surgery I&D right 1st metatarsal and hallux right. We will follow-up postop. REVIEW OF SYSTEMS CONSTITUTIONAL: Positive for fever, chills, malaise NEUROLOGICAL: Denies headache, amaurosis fugax, motor weakness, sensory def icit, vertigo/spinning sensation, gait abnormalities, or tremors. ENT: No hearing loss, otalgia, otorrhea, rhinitis, rhinorrhea, hoarseness, or sore throat. CARDIOVASCULAR: Denies any exertional angina, dyspnea on exertion, orthopnea, paroxysmal nocturnal dyspnea, palpitations, life-threatening arrhythmias, claudication. PULMONARY: Denies any shortness of breath, cough, phlegm/sputum, hemoptysis, pleuritic chest pain. GASTROINTESTINAL: Denies any type of dysphagia to either liquids or solids. Denies nausea, vomiting, pyrosis, early satiety, abdominal pain, diarrhea, constipation, or changes in stool consistency or caliber. Denies coffee-ground emesis, hematemesis, hematochezia, or melanotic stools. GENITOURINARY: Denies frequency, urgency, nocturia, hematuria or incontinence (Storage/Irritative symptoms.) Low urinary stream, straining to void, urinary intermittency or hesitancy, splitting of the voiding stream, terminal dribbling. ENDOCRINOLOGIC: Denies polyuria, polydipsia, polyphagia or heat/cold intolerances. HEMATOLOGIC: Denies thrombophilia/previous clots, or coagulopathy/bleeding disorders. ONCOLOGIC: Denies personal history of malignancy. DERMATOLOGIC: Denies rashes or pruritus. PSYCHIATRIC: Denies any suicidal or homicidal ideation. Denies hallucinations. Musculoskeletal: Pain in the right big toe PHYSICAL EXAM GENERAL APPEARANCE: The patient is awake, alert, and oriented, in no acute cardiopulmonary distress. NEUROLOGICAL: Cranial nerves II-XII grossly intact. Motor is 5/5 in bilateral upper and lower extremities proximal to distal. No sensory deficits. HEENT: Face is symmetric. Pupils are equal and reactive. Extraocular movements are intact. NECK: Supple. No JVD. No thyromegaly. No submental, submandibular, pre- /postauricular, occipital or supraclavicular lymphadenopathy. CHEST: Normal chest expansion. No Telemetry. LUNGS: Absence of any rales, rhonchi or any wheezing. CARDIOVASCULAR: Regular. S1 and S2 normal. No appreciable rubs, murmurs or gallops. ABDOMEN: Soft, nontender, and nondistended. There is no rebound, voluntary guarding, or rigidity. : Deferred. No [place]. EXTREMITIES: Patient currently has dressing present in the right big toe. There is open wound noted in the right big toe. There is minimal drainage not ed. SKIN: No skin breakdown. Vital Signs (last 8hr) Date Time Temp Pulse Resp B/P (MAP) Pulse Ox O2 Delivery O2 Flow Rate FiO2 08/12/25 09:20 83 18 141/90 96 Room Air 08/12/25 08:50 81 18 132/89 96 Room Air 08/12/25 08:20 76 18 129/88 96 Room Air 08/12/25 08:05 78 18 129/83 94 Room Air 08/12/25 08:00 97.9 79 16 125/81 93 Room Air 21 08/12/25 07:55 97.9 77 15 122/83 93 Room Air 21 08/12/25 07:50 97.9 80 16 119/82 94 Room Air 08/12/25 07:45 97.9 76 16 121/81 94 Room Air 08/12/25 07:40 97.9 77 16 118/77 95 Room Air 08/12/25 07:35 97.9 80 15 119/78 95 Room Air 08/12/25 07:30 97.9 77 15 114/80 98 Room Air 08/12/25 07:25 97.9 73 15 113/75 99 Nonrebreathing Mask 10.0 100 08/12/25 04:00 98.1 83 20 134/85 96 Room Air LABS: Laboratory: Test 08/12/25 07:42 08/12/25 04:53 08/11/25 18:42 08/11/25 06:36 Range/Units Whole Blood Glucose 207 H 70-110 MG/DL Sodium Level 137 136-145 mmol/L Potassium Level 4.0 3.5-5.1 mmol/L Chloride Level 104 101-111 mmol/L Carbon Dioxide Level 25 21-32 mmol/L Blood Urea Nitrogen 22 H 7-18 mg/dL Creatinine 0.5 0.5-1.0 mg/dL Glomerular Filtration Rate Calc 118 >90 mL/min Random Glucose 205 H 70-105 mg/dL Total Calcium 8.7 8.5-10.1 mg/dL Vancomycin Level Trough 15.8 # 10.0-20.0 UG/ML Urine HCG, Qualitative NEGATIVE NEGATIVE Urine Opiates Screen NEGATIVE NEGATIVE Urine Barbiturates Screen NEGATIVE NEGATIVE Urine Phencyclidine Screen NEGATIVE NEGATIVE Urine Amphetamines Screen NEGATIVE NEGATIVE Urine Benzodiazepines Screen NEGATIVE NEGATIVE Urine Cocaine Screen NEGATIVE NEGATIVE Urine Marijuana (THC) Screen NEGATIVE NEGATIVE Test 08/11/25 05:53 Range/Units White Blood Count 8.0 4.8-10.8 K/uL Red Blood Count 3.71 L 4.00-5.50 MIL/uL Hemoglobin 10.4 L 12.0-16.0 g/dL Hematocrit 31.3 L 36-48 % Mean Corpuscular Volume 84.4 79-99 fL Mean Corpuscular Hemoglobin 28.0 27.0-33.0 pg Mean Corpuscular Hemoglobin Concent 33.2 32.0-36.0 g/dL Red Cell Distribution Width 11.9 11.0-15.5 % Platelet Count 230 130-400 K/uL Mean Platelet Volume 10.3 7.5-10.5 fL Immature Granulocyte % (Auto) 0.4 0-1 % Neutrophils (%) (Auto) 71.7 40.0-77.0 % Lymphocytes (%) (Auto) 18.9 L 21.0-51.0 % Monocytes (%) (Auto) 7.4 3.0-13.0 % Eosinophils (%) (Auto) 1.3 0.0-8.0 % Basophils (%) (Auto) 0.3 0.0-5.0 % Neutrophils # (Auto) 5.7 1.8-7.7 K/uL Lymphocytes # (Auto) 1.5 1.0-4.8 K/uL Monocytes # (Auto) 0.6 0.1-1.0 K/uL Eosinophils # (Auto) 0.10 0.00-0.70 K/uL Basophils # (Auto) 0.02 0.00-0.20 K/uL Absolute Immature Granulocyte (auto 0.03 0-1 K/uL Nucleated Red Blood Cells 0.0 0.0-0.19 % Magnesium Level 1.80 1.80-2.40 mg/dL Total Bilirubin 0.6 0.2-1.0 mg/dL Aspartate Amino Transf (AST/SGOT) 15 10-37 U/L Alanine Aminotransferase (ALT/SGPT) 19 12-78 U/L Alkaline Phosphatase 152 H 50-136 U/L Total Protein 6.5 6.0-8.3 g/dL Albumin 2.5 L 3.5-5.0 g/dL Current Medications Medications (Trade) Dose Ordered Sig/Willis Route PRN Reason Start Time Stop Time Status Last Admin Dose Admin Acetaminophen (TYLenol 500MG TAB) 500 mg Q6H PRN PO MILD PAIN (1-3) 08/07/25 14:00 09/06/25 13:59 08/11/25 00:40 500 MG Acetaminophen/ Hydrocodone Bitart (NORco 5/325MG) 1 tab Q6H PRN PO MODERATE PAIN (4-6) 08/08/25 11:30 08/11/25 07:06 DC 08/10/25 16:34 1 TAB Cadexomer Iodine (Iodosorb Gel 40gm) DAILY TP 08/09/25 09:00 09/08/25 08:59 08/10/25 22:00 1 APPL Cefepime HCl (MAXipime 1 GM vial) 1 gm Q8H IVPB 08/07/25 14:00 08/17/25 13:59 08/12/25 06:57 1 GM Clindamycin HCl/ Dextrose 50 ml @ 100 mls/hr ONCE STAT IV 08/07/25 12:16 08/07/25 12:45 DC 08/07/25 12:56 100 MLS/HR Docusate Sodium (COLace 100MG CAP) 100 mg BID PRN PO CONSTIPATION 08/10/25 20:30 09/09/25 20:29 08/10/25 20:11 100 MG Enoxaparin Sodium (Lovenox) 30 mg DAILY SQ 08/09/25 09:00 09/08/25 08:59 08/12/25 10:10 30 MG Famotidine (Pepcid 20mg Vial) 20 mg BID IV 08/07/25 21:00 09/06/25 20:59 08/12/25 10:10 20 MG Fluticasone Propionate (FLOnase 50 mcg/ spray 16g bottle) 1 SPRAY DAILY EN 08/08/25 12:00 09/07/25 11:59 08/11/25 09:00 1 SPRAYS Fluticasone Propionate (FLOnase 50 mcg/ spray 16g bottle) 2 SPRAYS ONCE EN 08/08/25 11:00 08/08/25 11:07 DC Insulin Glargine (LANtus 100 UNITS/ML 10 ML VIAL) 12 units DAILY SQ 08/08/25 09:00 08/11/25 07:03 DC 08/10/25 08:14 12 UNITS Insulin Glargine (LANtus 100 UNITS/ML 10 ML VIAL) 15 units DAILY SQ 08/11/25 09:00 09/10/25 08:59 08/12/25 10:35 15 UNITS Insulin Human Regular (humuLIN R 100 UNIT/ML 3ML) 5 unit TIDAC SQ 08/10/25 17:00 09/09/25 16:59 08/11/25 17:05 5 UNIT Insulin Human Regular (humuLIN R 100 UNIT/ML 3ML) INSULIN SLIDING SCAL... ACHS SQ 08/07/25 16:30 08/08/25 23:36 DC 08/08/25 21:45 7 UNIT Insulin Human Regular (humuLIN R 100 UNIT/ML 3ML) INSULIN SLIDING SCAL... ACHS SQ 08/09/25 07:30 09/08/25 07:29 08/11/25 17:05 8 UNIT Ketorolac Tromethamine (toRADol) 15 mg Q6H PRN IV MODERATE PAIN (4-6) 08/07/25 14:00 08/12/25 13:59 08/12/25 04:27 15 MG Magnesium Sulfate 50 ml @ 0 mls/hr PROTOCOL PRN IV HYPOMAGNESEMIA 08/07/25 14:00 09/06/25 13:59 08/11/25 06:54 25 MLS/HR Montelukast Sodium (SinguLAIR) 10 mg HS PO 08/08/25 21:00 09/07/25 20:59 08/11/25 21:24 10 MG Morphine Sulfate (morPHINE 4MG SYG) 2 mg Q4H PRN IVP SEVERE PAIN (7-10) 08/07/25 14:00 08/14/25 13:59 08/11/25 13:20 2 MG Ondansetron HCl (zoFRAN 4MG INJ) 4 mg Q6H PRN IVP NAUSEA/VOMITING 08/07/25 13:30 09/06/25 13:29 08/08/25 17:44 4 MG Potassium Chloride 100 ml @ 100 mls/hr AD PRN IV POTASSIUM PROTOCOL 08/07/25 14:00 09/06/25 13:59 Potassium Chloride (K-Dur/Klor-Con 20meq) 20 meq AD PRN PO POTASSIUM PROTOCOL 08/07/25 14:00 09/06/25 13:59 08/09/25 12:08 20 MEQ Potassium Chloride (KCl 10% Elixir 20meq/15ml) 20 meq AD PRN PO POTASSIUM PROTOCOL 08/07/25 14:00 09/06/25 13:59 Sodium Chloride 1,000 ml @ 100 mls/hr Q10H IV 08/07/25 14:00 09/06/25 13:59 08/11/25 16:55 100 MLS/HR Vancomycin HCl 250 ml @ 125 mls/hr Q12H IV 08/08/25 03:00 08/08/25 19:33 DC 08/08/25 03:13 125 MLS/HR Vancomycin HCl 250 ml @ 125 mls/hr Q12H IV 08/08/25 20:00 08/18/25 19:59 08/12/25 10:11 125 MLS/HR Vancomycin HCl (Vancomycin Protocol) 1 each AD IV 08/07/25 14:00 08/21/25 13:59 DIAGNOSTICS / RADIOLOGY: [ ] ASSESSMENT: Cellulitis involving the right big toe with open wound status post incision and drainage by Podiatry failed outpatient treatment POA Great right toe cellulitis with abscess POA Right toe infection with STREPTOCOCCUS BOVIS Mild Hyponatremia Diabetes mellitus type2 Intractable pain to right big toe poa EARLY [id number] proximal and distal phalanx. POA depression active PLAN: - patient to be admitted to medical-surgical unit -in reference to cellulitis involving the right big toe. Apartment Leasing Consultant: ID, hospital pharmacy technician Dr Davis SCHEDULED FOR ID 1st metatarsal and hallux right Microbiology: Wound cultures STREPTOCOCCUS BOVIS Imaging: MRI: Early osteomyelitis antibiotics vancomycin every 12 hours, cefepime IV. Every eight wound Care management Medihoney. A.c. HS monitoring with sliding scale coverage and long acting insulin Lantus 12 units daily Replace electrolytes to keep potassium above 4.0 magnesium above 2.0 Labs in a.m. CBC CMP magnesium Continue DVT GI prophylaxis Continue pain management for adequate pain control Precautions, aggressive offloading nonweightbearing -further orders per hospitalization course all questions addressed ATTESTATION BY PHYSICIAN I have seen and examined the patient. I reviewed the documentation, medical decision making, and treatment plan as noted by the mid-level provider above. I agree with the findings and plan of care. DESHAUN RYAN MD, ELIZABETH NP Aug 12, 2025 11:14
--- NOTE | 2025-08-12 20:23 | PN ---
Endocrinology progress note DOS:08/12/25 subjective: glucose are improving. Home diabetic regimen: lispro insulin 20 units tid before meals Hba1c 14.5% glucose runs greater than 200 mg/dl. REVIEW OF SYSTEMS CONSTITUTIONAL: Positive for fever, chills, malaise but improving. NEUROLOGICAL: Denies headache, amaurosis fugax, motor weakness, sensory deficit, vertigo/spinning sensation, gait abnormalities, or tremors. ENT: No hearing loss, otalgia, otorrhea, rhinitis, rhinorrhea, hoarseness, or sore throat. CARDIOVASCULAR: Denies any exertional angina, dyspnea on exertion, orthopnea, paroxysmal nocturnal dyspnea, palpitations, life-threatening arrhythmias, claudication. PULMONARY: Denies any shortness of breath, cough, phlegm/sputum, hemoptysis, pleuritic chest pain. GASTROINTESTINAL: Denies any type of dysphagia to either liquids or solids. Denies nausea, vomiting, pyrosis, early satiety, abdominal pain, diarrhea, constipation, or changes in stool consistency or caliber. Denies coffee-ground emesis, hematemesis, hematochezia, or melanotic stools. GENITOURINARY: Denies frequency, urgency, nocturia, hematuria or incontinence (Storage/Irritative symptoms.) Low urinary stream, straining to void, urinary intermittency or hesitancy, splitting of the voiding stream, terminal dribbling. ENDOCRINOLOGIC: Denies polyuria, polydipsia, polyphagia or heat/cold intolerances. HEMATOLOGIC: Denies thrombophilia/previous clots, or coagulopathy/bleeding disorders. ONCOLOGIC: Denies personal history of malignancy. DERMATOLOGIC: Denies rashes or pruritus. PSYCHIATRIC: Denies any suicidal or homicidal ideation. Denies hallucinations. Musculoskeletal: Pain in the right big toe PAST MEDICAL HISTORY: Diabetes mellitus type 2 PAST SURGICAL HISTORY: History of , history of tubal ligation PAST SOCIAL HISTORY: Denied any smoking, alcohol, drug use FAMILY HISTORY: Denied any pertinent family history Coded Allergies: No Known Drug Allergies (Unverified Allergy, Unknown, 08/07/25) DIAGNOSTICS / RADIOLOGY: Foot x-ray showed no acute findings ASSESSMENT: uncontrolled type 2 DM, POA she wa diagnosed with dm-2 two weeks ago. glucose runs greater than 200 mg/dl. Cellulitis involving the right big toe with open wound status post incision and drainage by Podiatry failed outpatient treatment POA I&D pending Mild Hyponatremia - improved PLAN: continue Lantus 15 units daily and adjust for fasting glucose. increase Regular insulin to 7 units three times before meals and adjust for post-prandial glucose. Continue medium dose sliding scale insulin. Monitor glucose q x 6 hourly. Continue carbs consistent diet. Keep glucose less than 180 mg/dl. Patient will need lantus 30 units daily and lispro insulin 10 units tid before meals at discharge. Vitals/Labs Vital Signs Date Time Temp Pulse Resp B/P (MAP) Pulse Ox O2 Delivery O2 Flow Rate FiO2 08/12/25 15:57 98.4 99 18 148/96 97 Room Air 08/12/25 08:00 21 08/12/25 07:25 10.0 Laboratory Tests 08/12/25 04:53 Medications Current Medications Clindamycin HCl/ Dextrose 50 ml @ 100 mls/hr ONCE STAT IV Last administered on 08/07/25at 12:56; Start 08/07/25 at 12:16; Stop 08/07/25 at 12:45; Status DC Sodium Chloride 1,000 ml @ 0 mls/hr ONCE ONCE IV Last administered on 08/07/25at 12:56; Start 08/07/25 at 13:00; Stop 08/07/25 at 13:01; Status DC Morphine Sulfate 2 mg ONCE ONCE IVP; Start 08/07/25 at 13:30; Stop 08/07/25 at 13:31; Status DC Ondansetron HCl 4 mg Q6H PRN IVP Last administered on 08/08/25at 17:44; Start 08/07/25 at 13:30; Stop 09/06/25 at 13:29 Morphine Sulfate 4 mg STK-MED ONCE .ROUTE; Start 08/07/25 at 13:27; Stop 08/07/25 at 13:27; Status DC Morphine Sulfate 2 mg ONCE ONCE IVP Last administered on 08/07/25at 13:34; Start 08/07/25 at 14:00; Stop 08/07/25 at 14:03; Status DC Ketorolac Tromethamine 15 mg Q6H PRN IV Last administered on 08/12/25at 13:25; Start 08/07/25 at 14:00; Stop 08/12/25 at 13:59; Status DC Morphine Sulfate 2 mg Q4H PRN IVP Last administered on 08/11/25at 13:20; Start 08/07/25 at 14:00; Stop 08/12/25 at 16:59; Status DC Sodium Chloride 1,000 ml @ 100 mls/hr Q10H IV Last administered on 08/12/25at 15:09; Start 08/07/25 at 14:00; Stop 09/06/25 at 13:59 Insulin Human Regular INSULIN SLIDING SCAL... ACHS SQ Last administered on 08/08/25at 21:45; Start 08/07/25 at 16:30; Stop 08/08/25 at 23:36; Status DC Acetaminophen 500 mg Q6H PRN PO Last administered on 08/12/25at 17:20; Start 08/07/25 at 14:00; Stop 09/06/25 at 13:59 Vancomycin HCl 1 each AD IV; Start 08/07/25 at 14:00; Stop 08/21/25 at 13:59 Cefepime HCl 1 gm Q8H IVPB Last administered on 08/12/25at 15:07; Start 08/07/25 at 14:00; Stop 08/17/25 at 13:59 Potassium Chloride 100 ml @ 100 mls/hr AD PRN IV; Start 08/07/25 at 14:00; Stop 09/06/25 at 13:59 Potassium Chloride 20 meq AD PRN PO; Start 08/07/25 at 14:00; Stop 09/06/25 at 13:59 Potassium Chloride 20 meq AD PRN PO Last administered on 08/09/25at 12:08; Start 08/07/25 at 14:00; Stop 09/06/25 at 13:59 Magnesium Sulfate 50 ml @ 0 mls/hr PROTOCOL PRN IV Last administered on 08/11/25at 06:54; Start 08/07/25 at 14:00; Stop 09/06/25 at 13:59 Vancomycin HCl 250 ml @ 125 mls/hr ONCE ONCE IV Last administered on 08/07/25at 15:07; Start 08/07/25 at 15:00; Stop 08/07/25 at 16:59; Status DC Vancomycin HCl 250 ml @ 125 mls/hr Q12H IV Last administered on 08/08/25at 03:13; Start 08/08/25 at 03:00; Stop 08/08/25 at 19:33; Status DC Famotidine 20 mg BID IV Last administered on 08/12/25at 10:10; Start 08/07/25 at 21:00; Stop 09/06/25 at 20:59 Cadexomer Iodine 1 APPL ONCE ONCE TP Last administered on 08/07/25at 20:18; Start 08/07/25 at 19:30; Stop 08/07/25 at 19:31; Status DC Insulin Glargine 12 units DAILY SQ Last administered on 08/10/25at 08:14; Start 08/08/25 at 09:00; Stop 08/11/25 at 07:03; Status DC Fluticasone Propionate 1 SPRAY DAILY EN Last administered on 08/12/25at 09:00; Start 08/08/25 at 12:00; Stop 09/07/25 at 11:59 Fluticasone Propionate 2 SPRAYS ONCE EN; Start 08/08/25 at 11:00; Stop 08/08/25 at 11:07; Status DC Montelukast Sodium 10 mg HS PO Last administered on 08/12/25at 20:19; Start 08/08/25 at 21:00; Stop 09/07/25 at 20:59 Acetaminophen/ Hydrocodone Bitart 1 tab Q6H PRN PO Last administered on 08/10/25at 16:34; Start 08/08/25 at 11:30; Stop 08/11/25 at 07:06; Status DC Gadoterate Meglumine 10 mmol STK-MED ONCE IV; Start 08/08/25 at 16:10; Stop 08/08/25 at 16:11; Status DC Vancomycin HCl 250 ml @ 125 mls/hr Q12H IV Last administered on 08/12/25at 20:19; Start 08/08/25 at 20:00; Stop 08/18/25 at 19:59 Insulin Human Regular INSULIN SLIDING SCAL... ACHS SQ Last administered on 08/12/25at 17:13; Start 08/09/25 at 07:30; Stop 09/08/25 at 07:29 Cadexomer Iodine DAILY TP Last administered on 08/12/25at 09:00; Start 08/09/25 at 09:00; Stop 09/08/25 at 08:59 Enoxaparin Sodium 30 mg DAILY SQ Last administered on 08/12/25at 10:10; Start 08/09/25 at 09:00; Stop 09/08/25 at 08:59 Insulin Human Regular 5 unit TIDAC SQ Last administered on 08/12/25at 17:15; Start 08/10/25 at 17:00; Stop 09/09/25 at 16:59 Docusate Sodium 100 mg BID PRN PO Last administered on 08/12/25at 13:20; Start 08/10/25 at 20:30; Stop 09/09/25 at 20:29 Insulin Glargine 15 units DAILY SQ Last administered on 08/12/25at 10:35; Start 08/11/25 at 09:00; Stop 09/10/25 at 08:59 Lidocaine HCl 20 ml STK-MED ONCE .ROUTE; Start 08/12/25 at 06:43; Stop 08/12/25 at 06:43; Status DC Bupivacaine HCl 5 mg STK-MED ONCE .ROUTE; Start 08/12/25 at 06:43; Stop 08/12/25 at 06:43; Status DC Midazolam HCl 2 mg STK-MED ONCE .ROUTE; Start 08/12/25 at 06:46; Stop 08/12/25 at 06:46; Status DC Propofol 200 mg STK-MED ONCE IV; Start 08/12/25 at 06:46; Stop 08/12/25 at 06:46; Status DC Fentanyl Citrate 100 mcg STK-MED ONCE .ROUTE; Start 08/12/25 at 06:46; Stop 08/12/25 at 06:46; Status DC Ondansetron HCl 4 mg STK-MED ONCE .ROUTE; Start 08/12/25 at 07:01; Stop 08/12/25 at 07:01; Status DC Propofol 200 mg STK-MED ONCE IV; Start 08/12/25 at 07:09; Stop 08/12/25 at 07:09; Status DC Fentanyl Citrate 100 mcg STK-MED ONCE .ROUTE; Start 08/12/25 at 07:21; Stop 08/12/25 at 07:22; Status DC Bupivacaine HCl 75 mg STK-MED ONCE IJ Last administered on 08/12/25at 06:50; Start 08/12/25 at 06:50; Stop 08/12/25 at 07:40; Status DC Lidocaine HCl 20 ml STK-MED ONCE MISC Last administered on 08/12/25at 06:51; Start 08/12/25 at 06:51; Stop 08/12/25 at 07:40; Status DC Ketorolac Tromethamine 15 mg Q6H PRN IV; Start 08/12/25 at 20:00; Stop 08/12/25 at 20:05; Status DC Morphine Sulfate 4 mg Q4H PRN IVP Last administered on 08/12/25at 20:20; Start 08/12/25 at 20:30; Stop 08/19/25 at 20:29 VETO MORRIS MD Aug 12, 2025 20:23
--- NOTE | 2025-08-12 22:54 | PN ---
INFECTIOUS DISEASE PROGRESS NOTE Date of Service: Aug 12, 2025 SUBJECTIVE: This is a 44-year-old female patient who is status post Excisional debridement of the right great toe ulcer today. The wound culture results came back positive for Streptococcus bovis. We will discontinue vancomycin and start linezolid 600 mg p.o. b.i.d. and continue on cefepime. No fever, temperature is 97.9. We will follow follow up on the intraoperative culture results. PHYSICAL EXAM EYES: Anicteric. Pupils equal and reactive. HENT: No oral thrush seen, moist Oral mucosa. NECK: Supple, no JVD or thyromegaly. LUNGS: Good air entry. No rales, no rhonchi. CARDIOVASCULAR: S1, S2 regular. No murmur heard. ABDOMEN: Soft, non tender, bowel sounds present, no organomegaly. CENTRAL NERVOUS SYSTEM: Awake, alert, oriented x 3. SKIN: No rashes, no swelling. Right great toe wound and cellulitis. LYMPHATICS: No peripheral lymphadenopathy MUSCULOSKELETAL: No joint swelling, erythema or tenderness. EXTREMITIES: No cyanosis or clubbing. BACK: No deformity, no pressure ulcer. GENITOURINARY: No dysuria or hematuria. Vital Sign (Last 12 Hours) 08/12/25 08/12/25 08/12/25 08/12/25 11:30 12:20 13:20 14:20 Temp 98.8 Pulse 91 92 94 90 Resp 18 18 18 18 B/P (MAP) 141/90 143/80 145/86 135/84 Pulse Ox 94 94 94 96 O2 Delivery Room Air Room Air Room Air Room Air 08/12/25 08/12/25 15:57 20:00 Temp 98.4 98.6 Pulse 99 100 Resp 18 20 B/P (MAP) 148/96 128/81 Pulse Ox 97 97 O2 Delivery Room Air Room Air Intake & Output (last 24hrs) 08/11/25 08/11/25 08/12/25 15:00 23:00 07:00 Intake Total 300.0 ml 3050.0 ml Balance 300.0 ml 3050.0 ml LABS: Laboratory: Test 08/12/25 20:08 08/12/25 04:53 08/11/25 18:42 08/11/25 06:36 Range/Units Whole Blood Glucose 181 H 70-110 MG/DL Sodium Level 137 136-145 mmol/L Potassium Level 4.0 3.5-5.1 mmol/L Chloride Level 104 101-111 mmol/L Carbon Dioxide Level 25 21-32 mmol/L Blood Urea Nitrogen 22 H 7-18 mg/dL Creatinine 0.5 0.5-1.0 mg/dL Glomerular Filtration Rate Calc 118 >90 mL/min Random Glucose 205 H 70-105 mg/dL Total Calcium 8.7 8.5-10.1 mg/dL Magnesium Level 2.10 1.80-2.40 mg/dL Vancomycin Level Trough 15.8 # 10.0-20.0 UG/ML Urine HCG, Qualitative NEGATIVE NEGATIVE Urine Opiates Screen NEGATIVE NEGATIVE Urine Barbiturates Screen NEGATIVE NEGATIVE Urine Phencyclidine Screen NEGATIVE NEGATIVE Urine Amphetamines Screen NEGATIVE NEGATIVE Urine Benzodiazepines Screen NEGATIVE NEGATIVE Urine Cocaine Screen NEGATIVE NEGATIVE Urine Marijuana (THC) Screen NEGATIVE NEGATIVE Test 08/11/25 05:53 Range/Units White Blood Count 8.0 4.8-10.8 K/uL Red Blood Count 3.71 L 4.00-5.50 MIL/uL Hemoglobin 10.4 L 12.0-16.0 g/dL Hematocrit 31.3 L 36-48 % Mean Corpuscular Volume 84.4 79-99 fL Mean Corpuscular Hemoglobin 28.0 27.0-33.0 pg Mean Corpuscular Hemoglobin Concent 33.2 32.0-36.0 g/dL Red Cell Distribution Width 11.9 11.0-15.5 % Platelet Count 230 130-400 K/uL Mean Platelet Volume 10.3 7.5-10.5 fL Immature Granulocyte % (Auto) 0.4 0-1 % Neutrophils (%) (Auto) 71.7 40.0-77.0 % Lymphocytes (%) (Auto) 18.9 L 21.0-51.0 % Monocytes (%) (Auto) 7.4 3.0-13.0 % Eosinophils (%) (Auto) 1.3 0.0-8.0 % Basophils (%) (Auto) 0.3 0.0-5.0 % Neutrophils # (Auto) 5.7 1.8-7.7 K/uL Lymphocytes # (Auto) 1.5 1.0-4.8 K/uL Monocytes # (Auto) 0.6 0.1-1.0 K/uL Eosinophils # (Auto) 0.10 0.00-0.70 K/uL Basophils # (Auto) 0.02 0.00-0.20 K/uL Absolute Immature Granulocyte (auto 0.03 0-1 K/uL Nucleated Red Blood Cells 0.0 0.0-0.19 % Total Bilirubin 0.6 0.2-1.0 mg/dL Aspartate Amino Transf (AST/SGOT) 15 10-37 U/L Alanine Aminotransferase (ALT/SGPT) 19 12-78 U/L Alkaline Phosphatase 152 H 50-136 U/L Total Protein 6.5 6.0-8.3 g/dL Albumin 2.5 L 3.5-5.0 g/dL DIAGNOSTICS / RADIOLOGY: PATIENT: BRUNO MOSS ACCT: [id number] LOC: [facility] U: [id number] AGE/SX: 44/F ROOM: [facility] RE08/07/[address]: LUIS HEAD MD : 1980 BED: 1 DIS: STATUS: ADM IN TLOC: SPEC: [id number] JEFF: 08/07/25 STATUS: COMP REQ: [id number] RECD: 08/07/25-[address]: CHARITY GR LINE OPERATOR SOURCE: TOE ENTR: 08/07/25-1219 [facility] [address]: SELF,REFERRAL SPDESC: RIGHT BIG WORTHKYLEE DO ORDERED: AEROBIC CULTURE COMMENTS: Comment: RIGHT GREAT TOE ULCER Comment: RIGHT GREAT TOE ULCER Procedure Result [place] Date-Time AEROBIC CULTURE Final 08/12/25-804 [facility] DESCRIPTION: REPORT 1: 1+ SKIN ETIENNE ; STUDIES TO CONTINUE COAGULASE NEGATIVE STAPHYLOCOCCUS REPORT 2: 1+ GRAM POSITIVE COCCI IN CHAINS IDENTIFICATION AND SENSITIVITY TO FOLLOW REPORT 3: NO FURTHER WORK-UP DONE STREPTOCOCCUS BOVIS STR BOVIS M.I.C. RX --------- ---- LINEZOLID <=2 S PENICILLIN <=0.03 S TRIMETHOPRIM/SUFLAMETHOXAZOLE <=0.5/9.5 TFG ASSESSMENT: Right great toe ulcer secondary to spider bite, status post Excisional debridement. Failed oral antibiotic therapy. Right foot cellulitis. Diabetes mellitus. PLAN: Discontinue vancomycin. Start linezolid 600 mg p.o. b.i.d. Continue cefepime. Continue pain management. Continue GI prophylaxis. Continue antidiabetics. We will follow up on the intraoperative cultures results. This case was reviewed and discussed with my supervising physician Dr. Urrutia and the above assessment and plan was formulated and agreed upon. ATTESTATION BY PHYSICIAN I have seen and examined the patient. I reviewed the documentation, medical decision making, and treatment plan as noted by the mid-level provider above. I agree with the findings and plan of care. ÁNGELA URRUTIA MD, [facility] Aug 12, 2025 22:54
[2025-08-13] VITALS (7 sets, daily range): BP systolic 109–141; BP diastolic 71–90; PULSE 72–98; RESP 16–20; TEMP 97.6–98.6; O2SAT 97
[2025-08-13 05:10] LABS: IMMATURE GRANULOCYTE ABSOLUTE 0.07 K/uL (0-1); NUCLEATED RED BLOOD CELLS 0.0 % (0.0-0.19); PLATELET COUNT (AUTO) 282 K/uL (130-400); RED BLOOD CELL COUNT(AUTO) 3.57 MIL/uL (4.00-5.50); RED CELL DISTRIBUTION WIDTH 11.8 % (11.0-15.5); WHITE BLOOD COUNT (AUTO) 11.9 K/uL (4.8-10.8)
[2025-08-13 05:29] LABS: ASPARTATE AMINOTRANSFERASE 19.0 U/L (10-37); CREATININE 0.6 mg/dL (0.5-1.0); GLOMERULAR FILTR. RATE CALC 113.0 mL/min (>90); GLUCOSE,RANDOM 224.0 mg/dL (70-105); SODIUM SERUM 135.0 mmol/L (136-145); TOTAL PROTEIN, SERUM 6.6 g/dL (6.0-8.3); UREA NITROGEN, BLOOD 15.0 mg/dL (7-18)
--- NOTE | 2025-08-13 07:01 | PN ---
[facility] PROGRESS NOTE Date of Service: Aug 13, 2025 Time of Service: 06:58 SUBJECTIVE: [ ] Patient stated that she was bitten by a possible spider she did not recall what kind of spider the bit her approximately two weeks ago. She was seen by her primary care physician she was treated with oral antibiotics a local care with no improvement at the condition. Most recently she was treated at the [facility] or for her infection incision and drainage was performed at that time and patient was sent to the hospital for further IV antibiotics and wound care. 08/08/25 patient was seen in ED she is fully awake alert oriented x3. Right foot great toe infected cellulitis swollen dressing. continue with IV antibiotics ID we will be following.. Patient was already seen by regroover most likely we will need debridement. Imaging were reviewed. All questions addressed. 08/09/25 patient was seen earlier patient is lying in bed. Patient had a MRI done suspecting osteomyelitis pending results. No fever no chills reported over night continues with broad-spectrum antibiotics. 08/10/25 patient is seen and examined patient continues with redness and swelling to green. MRI early osteomyelitis. Continues broad-spectrum antibiotics waiting for regroover for possible debridement. Denies fever chills. 08/11/25 THE PATIENT WAS SEEN EARLIER TODAY. PATIENT IS SCHEDULED FOR I AND D TOMORROW MORNING. PATIENT CONTINUES WITH [facility] ANTIBIOTICS AND PAIN MANAGEMENT. 08/12/25 patient is seen earlier today scheduled for surgery I&D right 1st metatarsal and hallux right. We will follow-up postop. 08/13/25 s/p POD 1 Excisional debridement of soft tissue necrosis to the level of the tendon on the 1st metatarsal and hallux right REVIEW OF SYSTEMS CONSTITUTIONAL: Positive for fever, chills, malaise NEUROLOGICAL: Denies headache, amaurosis fugax, motor weakness, sensory deficit, vertigo/spinning sensation, gait abnormalities, or tremors. ENT: No hearing loss, otalgia, otorrhea, rhinitis, rhinorrhea, hoarseness, or sore throat. CARDIOVASCULAR: Denies any exertional angina, dyspnea on exertion, orthopnea, paroxysmal nocturnal dyspnea, palpitations, life-threatening arrhythmias, claudication. PULMONARY: Denies any shortness of breath, cough, phlegm/sputum, hemoptysis, pleuritic chest pain. GASTROINTESTINAL: Denies any type of dysphagia to either liquids or solids. Denies nausea, vomiting, pyrosis, early satiety, abdominal pain, diarrhea, constipation, or changes in stool consistency or caliber. Denies coffee-ground emesis, hematemesis, hematochezia, or melanotic stools. GENITOURINARY: Denies frequency, urgency, nocturia, hematuria or incontinence (Storage/Irritative symptoms.) Low urinary stream, straining to void, urinary intermittency or hesitancy, splitting of the voiding stream, terminal dribbling. ENDOCRINOLOGIC: Denies polyuria, polydipsia, polyphagia or heat/cold intolerances. HEMATOLOGIC: Denies thrombophilia/previous clots, or coagulopathy/bleeding disorders. ONCOLOGIC: Denies personal history of malignancy. DERMATOLOGIC: Denies rashes or pruritus. PSYCHIATRIC: Denies any suicidal or homicidal ideation. Denies hallucinations. Musculoskeletal: Pain in the right big toe PHYSICAL EXAM GENERAL APPEARANCE: The patient is awake, alert, and oriented, in no acute cardiopulmonary distress. NEUROLOGICAL: Cranial nerves II-XII grossly intact. Motor is 5/5 in bilateral upper and lower extremities proximal to distal. No sensory deficits. HEENT: Face is symmetric. Pupils are equal and reactive. Extraocular movements are intact. NECK: Supple. No JVD. No thyromegaly. No submental, submandibular, pre- /postauricular, occipital or supraclavicular lymphadenopathy. CHEST: Normal chest expansion. No Telemetry. LUNGS: Absence of any rales, rhonchi or any wheezing. CARDIOVASCULAR: Regular. S1 and S2 normal. No appreciable rubs, murmurs or gallops. ABDOMEN: Soft, nontender, and nondistended. There is no rebound, voluntary guarding, or rigidity. : Deferred. No [place]. EXTREMITIES: Patient currently has dressing present in the right big toe. There is open wound noted in the right big toe. There is minimal drainage noted. SKIN: No skin breakdown. Vital Signs (last 8hr) Date Time Temp Pulse Resp B/P (MAP) Pulse Ox O2 Delivery O2 Flow Rate FiO2 08/13/25 04:00 98.2 77 20 109/71 95 Room Air 08/13/25 00:00 98.4 86 20 119/75 97 Room Air LABS: Laboratory: Test 08/13/25 05:36 08/13/25 04:25 08/11/25 18:42 Range/Units Whole Blood Glucose 225 H 70-110 MG/DL White Blood Count 11.9 H 4.8-10.8 K/uL Red Blood Count 3.57 L 4.00-5.50 MIL/uL Hemoglobin 10.1 L 12.0-16.0 g/dL Hematocrit 30.6 L 36-48 % Mean Corpuscular Volume 85.7 79-99 fL Mean Corpuscular Hemoglobin 28.3 27.0-33.0 pg Mean Corpuscular Hemoglobin Concent 33.0 32.0-36.0 g/dL Red Cell Distribution Width 11.8 11.0-15.5 % Platelet Count 282 130-400 K/uL Mean Platelet Volume 10.1 7.5-10.5 fL Immature Granulocyte % (Auto) 0.6 0-1 % Neutrophils (%) (Auto) 81.5 H 40.0-77.0 % Lymphocytes (%) (Auto) 11.3 L 21.0-51.0 % Monocytes (%) (Auto) 5.5 3.0-13.0 % Eosinophils (%) (Auto) 0.8 0.0-8.0 % Basophils (%) (Auto) 0.3 0.0-5.0 % Neutrophils # (Auto) 9.7 H 1.8-7.7 K/uL Lymphocytes # (Auto) 1.4 1.0-4.8 K/uL Monocytes # (Auto) 0.7 0.1-1.0 K/uL Eosinophils # (Auto) 0.09 0.00-0.70 K/uL Basophils # (Auto) 0.03 0.00-0.20 K/uL Absolute Immature Granulocyte (auto 0.07 0-1 K/uL Nucleated Red Blood Cells 0.0 0.0-0.19 % Sodium Level 135 L 136-145 mmol/L Potassium Level 4.2 3.5-5.1 mmol/L Chloride Level 102 101-111 mmol/L Carbon Dioxide Level 25 21-32 mmol/L Blood Urea Nitrogen 15 7-18 mg/dL Creatinine 0.6 0.5-1.0 mg/dL Glomerular Filtration Rate Calc 113 >90 mL/min Random Glucose 224 H 70-105 mg/dL Total Calcium 8.7 8.5-10.1 mg/dL Magnesium Level 1.80 1.80-2.40 mg/dL Total Bilirubin 0.6 0.2-1.0 mg/dL Aspartate Amino Transf (AST/SGOT) 19 10-37 U/L Alanine Aminotransferase (ALT/SGPT) 22 12-78 U/L Alkaline Phosphatase 203 H 50-136 U/L Total Protein 6.6 6.0-8.3 g/dL Albumin 2.4 L 3.5-5.0 g/dL Vancomycin Level Trough 15.8 # 10.0-20.0 UG/ML Current Medications Medications (Trade) Dose Ordered Sig/Willis Route PRN Reason Start Time Stop Time Status Last Admin Dose Admin Acetaminophen (TYLenol 500MG TAB) 500 mg Q6H PRN PO MILD PAIN (1-3) 08/07/25 14:00 09/06/25 13:59 08/12/25 23:17 500 MG Acetaminophen/ Hydrocodone Bitart (NORco 5/325MG) 1 tab Q6H PRN PO MODERATE PAIN (4-6) 08/08/25 11:30 08/11/25 07:06 DC 08/10/25 16:34 1 TAB Cadexomer Iodine (Iodosorb Gel 40gm) DAILY TP 08/09/25 09:00 09/08/25 08:59 08/12/25 09:00 1 APPL Cefepime HCl (MAXipime 1 GM vial) 1 gm Q8H IVPB 08/07/25 14:00 08/17/25 13:59 08/13/25 06:02 1 GM Clindamycin HCl/ Dextrose 50 ml @ 100 mls/hr ONCE STAT IV 08/07/25 12:16 08/07/25 12:45 DC 08/07/25 12:56 100 MLS/HR Docusate Sodium (COLace 100MG CAP) 100 mg BID PRN PO CONSTIPATION 08/10/25 20:30 09/09/25 20:29 08/12/25 13:20 100 MG Enoxaparin Sodium (Lovenox) 30 mg DAILY SQ 08/09/25 09:00 09/08/25 08:59 08/12/25 10:10 30 MG Famotidine (Pepcid 20mg Vial) 20 mg BID IV 08/07/25 21:00 09/06/25 20:59 08/12/25 21:06 20 MG Fluticasone Propionate (FLOnase 50 mcg/ spray 16g bottle) 1 SPRAY DAILY EN 08/08/25 12:00 09/07/25 11:59 08/12/25 09:00 1 SPRAYS Fluticasone Propionate (FLOnase 50 mcg/ spray 16g bottle) 2 SPRAYS ONCE EN 08/08/25 11:00 08/08/25 11:07 DC Insulin Glargine (LANtus 100 UNITS/ML 10 ML VIAL) 12 units DAILY SQ 08/08/25 09:00 08/11/25 07:03 DC 08/10/25 08:14 12 UNITS Insulin Glargine (LANtus 100 UNITS/ML 10 ML VIAL) 15 units DAILY SQ 08/11/25 09:00 09/10/25 08:59 08/12/25 10:35 15 UNITS Insulin Human Regular (humuLIN R 100 UNIT/ML 3ML) 5 unit TIDAC SQ 08/10/25 17:00 08/12/25 20:21 DC 08/12/25 17:15 5 UNIT Insulin Human Regular (humuLIN R 100 UNIT/ML 3ML) 7 unit TIDAC SQ 08/13/25 07:30 09/12/25 07:29 Insulin Human Regular (humuLIN R 100 UNIT/ML 3ML) INSULIN SLIDING SCAL... ACHS SQ 08/07/25 16:30 08/08/25 23:36 DC 08/08/25 21:45 7 UNIT Insulin Human Regular (humuLIN R 100 UNIT/ML 3ML) INSULIN SLIDING SCAL... ACHS SQ 08/09/25 07:30 09/08/25 07:29 08/12/25 21:06 4 UNIT Ketorolac Tromethamine (toRADol) 15 mg Q6H PRN IV MODERATE PAIN (4-6) 08/07/25 14:00 08/12/25 13:59 DC 08/12/25 13:25 15 MG Ketorolac Tromethamine (toRADol) 15 mg Q6H PRN IV MODERATE PAIN (4-6) 08/12/25 20:00 08/12/25 20:05 DC Linezolid (Zyvox) 600 mg Q12H PO 08/13/25 09:00 08/23/25 08:59 Magnesium Sulfate 50 ml @ 0 mls/hr PROTOCOL PRN IV HYPOMAGNESEMIA 08/07/25 14:00 09/06/25 13:59 08/13/25 06:03 20 MLS/HR Montelukast Sodium (SinguLAIR) 10 mg HS PO 08/08/25 21:00 09/07/25 20:59 08/12/25 20:19 10 MG Morphine Sulfate (morPHINE 4MG SYG) 2 mg Q4H PRN IVP SEVERE PAIN (7-10) 08/07/25 14:00 08/12/25 16:59 DC 08/11/25 13:20 2 MG Morphine Sulfate (morPHINE 4MG SYG) 4 mg Q4H PRN IVP SEVERE PAIN (7-10) 08/12/25 20:30 08/19/25 20:29 08/13/25 02:38 4 MG Ondansetron HCl (zoFRAN 4MG INJ) 4 mg Q6H PRN IVP NAUSEA/VOMITING 08/07/25 13:30 09/06/25 13:29 08/08/25 17:44 4 MG Potassium Chloride 100 ml @ 100 mls/hr AD PRN IV POTASSIUM PROTOCOL 08/07/25 14:00 09/06/25 13:59 Potassium Chloride (K-Dur/Klor-Con 20meq) 20 meq AD PRN PO POTASSIUM PROTOCOL 08/07/25 14:00 09/06/25 13:59 08/09/25 12:08 20 MEQ Potassium Chloride (KCl 10% Elixir 20meq/15ml) 20 meq AD PRN PO POTASSIUM PROTOCOL 08/07/25 14:00 09/06/25 13:59 Sodium Chloride 1,000 ml @ 100 mls/hr Q10H IV 08/07/25 14:00 09/06/25 13:59 08/12/25 15:09 100 MLS/HR Vancomycin HCl 250 ml @ 125 mls/hr Q12H IV 08/08/25 03:00 08/08/25 19:33 DC 08/08/25 03:13 125 MLS/HR Vancomycin HCl 250 ml @ 125 mls/hr Q12H IV 08/08/25 20:00 08/12/25 22:50 DC 08/12/25 20:19 125 MLS/HR Vancomycin HCl (Vancomycin Protocol) 1 each AD IV 08/07/25 14:00 08/12/25 22:50 DC DIAGNOSTICS / RADIOLOGY: [ ] ASSESSMENT: Cellulitis involving the right big toe with open wound status post incision and drainage by Podiatry failed outpatient treatment POA Great right toe cellulitis with abscess POAs/p 08/12/25 Excisional debridement of soft tissue necrosis to the level of the tendon on the 1st metatarsal and hallux right Right toe infection with STREPTOCOCCUS BOVIS Mild Hyponatremia Diabetes mellitus type2 Intractable pain to right big toe poa EARLY [id number] proximal and distal phalanx. POA depression active PLAN: - patient to be admitted to medical-surgical unit -in reference to cellulitis involving the right big toe. Coremaker Supervisor: ID, regroover Dr Davis POD 1 1st metatarsal and hallux right will follow surgeon recommendations with orders of wound care: Xeroform dressings to the area continue flushing with saline solution plan for wound VAC possibly on Monday. Microbiology: Wound cultures STREPTOCOCCUS BOVIS Imaging: MRI: Early osteomyelitis antibiotics ID stop linezolid and started IV Rocephin 2 gm A.c. HS monitoring with sliding scale coverage and long acting insulin Lantus 12 units daily Replace electrolytes to keep potassium above 4.0 magnesium above 2.0 Labs in a.m. CBC CMP magnesium Continue DVT GI prophylaxis Continue pain management for adequate pain control Precautions, aggressive offloading nonweightbearing -further orders per hospitalization course all questions addressed ATTESTATION BY PHYSICIAN I have seen and examined the patient. I reviewed the documentation, medical decision making, and treatment plan as noted by the mid-level provider above. I agree with the findings and plan of care. DESHAUN RYAN MD, [facility]IZABETH NP Aug 13, 2025 07:01
[2025-08-13] MEDS: ZYVOX 600 MG TAB PO SCH (09:19)
--- NOTE | 2025-08-13 10:00 | NUR ---
PHYSICIAN ROUNDING DR. RIVERA ON UNIT. RT FOOT DRESSING CHANGED, CLEANSED WITH NORMAL SALINE, XEROFORM APPLIED AND COVERED WITH 4X4 THEN WRAPPED WITH CALI BANDAGE. WOUND PICTURE OBTAINED. PER MD CHANGED DRESSING ONCE DAILY. PATIENT MAY REQUIRE WOUND VAC. POSSIBLE PLACEMENT MONDAY OR MONDAY.
--- NOTE | 2025-08-13 11:08 | PN ---
PROGRESS NOTE Date of Service: Aug 13, 2025 Time of Service: 11:06 SUBJECTIVE: This 44 years old female was seen for follow up evaluation on wounds secondary to spider bite on her right hallux. Status post wound debridement yesterday. No new complaints REVIEW OF SYSTEMS CONSTITUTIONAL: Denies fever, chills, or fatigue. HEAD/FACE: No signs of trauma. EENT: Denies eye pain, blurred vision, double vision, or light sensitivity. RESPIRATORY: Denies shortness of breath, cough, wheezing CARDIOVASCULAR: Denies chest pain, palpitation, syncope GASTROINTESTINAL/ABDOMINAL: Denies abdominal pain, constipation, diarrhea, nausea or vomiting GENITOURINARY: Denies dysuria or hematuria. MUSCULOSKELETAL: Denies joint pain, tenderness, or trauma. INTEGUMENTARY: Cellulitis and rash on her great toe right. Wound from necrosis secondary to spider bite. Possible brown recluse spider. NEUROLOGICAL/PSYCH: Denies anxiety, depression, heat or cold intolerance. PHYSICAL EXAM EYES: Anicteric. Pupils equal and reactive. HENT: No oral thrush seen, moist Oral mucosa NECK: Supple, no JVD or thyromegaly. LUNGS: Good air entry. No rales, no rhonchi. CARDIOVASCULAR: S1, S2 regular. No murmur heard. ABDOMEN: Soft, non tender, bowel sounds present, no organomegaly CENTRAL NERVOUS SYSTEM: Awake, alert, oriented x 3. No focal deficits. SKIN: Ulceration and necrotic ulcer was noted on the most medial aspect of the hallux also a pre ulcer area was noted of the plantar hallux same foot right. Localized cellulitis and epidermolysis. LYMPHATICS: No peripheral lymphadenopathy MUSCULOSKELETAL: No joint swelling, erythema or tenderness. EXTREMITIES: No cyanosis or clubbing BACK: No deformity, no pressure ulcer. GENITOURINARY: No dysuria or hematuria Vital Signs (last 8hr) Date Time Temp Pulse Resp B/P (MAP) Pulse Ox O2 Delivery O2 Flow Rate FiO2 08/13/25 08:00 98.4 72 16 117/77 96 Room Air 08/13/25 04:00 98.2 77 20 109/71 95 Room Air LABS: Laboratory: Test 08/13/25 05:36 08/13/25 04:25 08/11/25 18:42 Range/Units Whole Blood Glucose 225 H 70-110 MG/DL White Blood Count 11.9 H 4.8-10.8 K/uL Red Blood Count 3.57 L 4.00-5.50 MIL/uL Hemoglobin 10.1 L 12.0-16.0 g/dL Hematocrit 30.6 L 36-48 % Mean Corpuscular Volume 85.7 79-99 fL Mean Corpuscular Hemoglobin 28.3 27.0-33.0 pg Mean Corpuscular Hemoglobin Concent 33.0 32.0-36.0 g/dL Red Cell Distribution Width 11.8 11.0-15.5 % Platelet Count 282 130-400 K/uL Mean Platelet Volume 10.1 7.5-10.5 fL Immature Granulocyte % (Auto) 0.6 0-1 % Neutrophils (%) (Auto) 81.5 H 40.0-77.0 % Lymphocytes (%) (Auto) 11.3 L 21.0-51.0 % Monocytes (%) (Auto) 5.5 3.0-13.0 % Eosinophils (%) (Auto) 0.8 0.0-8.0 % Basophils (%) (Auto) 0.3 0.0-5.0 % Neutrophils # (Auto) 9.7 H 1.8-7.7 K/uL Lymphocytes # (Auto) 1.4 1.0-4.8 K/uL Monocytes # (Auto) 0.7 0.1-1.0 K/uL Eosinophils # (Auto) 0.09 0.00-0.70 K/uL Basophils # (Auto) 0.03 0.00-0.20 K/uL Absolute Immature Granulocyte (auto 0.07 0-1 K/uL Nucleated Red Blood Cells 0.0 0.0-0.19 % Sodium Level 135 L 136-145 mmol/L Potassium Level 4.2 3.5-5.1 mmol/L Chloride Level 102 101-111 mmol/L Carbon Dioxide Level 25 21-32 mmol/L Blood Urea Nitrogen 15 7-18 mg/dL Creatinine 0.6 0.5-1.0 mg/dL Glomerular Filtration Rate Calc 113 >90 mL/min Random Glucose 224 H 70-105 mg/dL Total Calcium 8.7 8.5-10.1 mg/dL Magnesium Level 1.80 1.80-2.40 mg/dL Total Bilirubin 0.6 0.2-1.0 mg/dL Aspartate Amino Transf (AST/SGOT) 19 10-37 U/L Alanine Aminotransferase (ALT/SGPT) 22 12-78 U/L Alkaline Phosphatase 203 H 50-136 U/L Total Protein 6.6 6.0-8.3 g/dL Albumin 2.4 L 3.5-5.0 g/dL Vancomycin Level Trough 15.8 # 10.0-20.0 UG/ML DIAGNOSTICS / RADIOLOGY: MPRESSION: 1. Focal irregular collection medial to the first proximal phalanx, measuring 1.9 x 0.9 x 1.9 cm, with overlying skin ulceration. 2. Mild marrow edema in the 1st proximal and distal phalanx. This could be reactive or reflect early osteomyelitis. ASSESSMENT: Diabetic ulcer hallux right. Necrotic ulcer secondary to a spider bite with reactive hyperemia. Cellulitis secondary to by the bite. Reactive bone marrow edema versus osteomyelitis early stages. Diabetes. PLAN: Continue IV antibiotics therapy. Continue local wound care at this time applied Xeroform dressings to the area continue flushing with saline solution plan for wound VAC possibly on Monday. LATRICE RIVERA DPM Aug 13, 2025 11:08
--- NOTE | 2025-08-13 20:46 | PN ---
Endocrinology progress note DOS:08/13/25 subjective: glucose are improving. Home diabetic regimen: lispro insulin 20 units tid before meals Hba1c 14.5% glucose runs greater than 200 mg/dl. REVIEW OF SYSTEMS CONSTITUTIONAL: Positive for fever, chills, malaise but improving. NEUROLOGICAL: Denies headache, amaurosis fugax, motor weakness, sensory deficit, vertigo/spinning sensation, gait abnormalities, or tremors. ENT: No hearing loss, otalgia, otorrhea, rhinitis, rhinorrhea, hoarseness, or sore throat. CARDIOVASCULAR: Denies any exertional angina, dyspnea on exertion, orthopnea, paroxysmal nocturnal dyspnea, palpitations, life-threatening arrhythmias, claudication. PULMONARY: Denies any shortness of breath, cough, phlegm/sputum, hemoptysis, pleuritic chest pain. GASTROINTESTINAL: Denies any type of dysphagia to either liquids or solids. Denies nausea, vomiting, pyrosis, early satiety, abdominal pain, diarrhea, constipation, or changes in stool consistency or caliber. Denies coffee-ground emesis, hematemesis, hematochezia, or melanotic stools. GENITOURINARY: Denies frequency, urgency, nocturia, hematuria or incontinence (Storage/Irritative symptoms.) Low urinary stream, straining to void, urinary intermittency or hesitancy, splitting of the voiding stream, terminal dribbling. ENDOCRINOLOGIC: Denies polyuria, polydipsia, polyphagia or heat/cold intolerances. HEMATOLOGIC: Denies thrombophilia/previous clots, or coagulopathy/bleeding disorders. ONCOLOGIC: Denies personal history of malignancy. DERMATOLOGIC: Denies rashes or pruritus. PSYCHIATRIC: Denies any suicidal or homicidal ideation. Denies hallucinations. Musculoskeletal: Pain in the right big toe PAST MEDICAL HISTORY: Diabetes mellitus type 2 PAST SURGICAL HISTORY: History of , history of tubal ligation PAST SOCIAL HISTORY: Denied any smoking, alcohol, drug use FAMILY HISTORY: Denied any pertinent family history Coded Allergies: No Known Drug Allergies (Unverified Allergy, Unknown, 08/07/25) DIAGNOSTICS / RADIOLOGY: Foot x-ray showed no acute findings ASSESSMENT: uncontrolled type 2 DM, POA she wa diagnosed with dm-2 two weeks ago. glucose runs greater than 200 mg/dl. Cellulitis involving the right big toe with open wound status post incision and drainage by Podiatry failed outpatient treatment POA now s/p excisional debridement I&D pending Mild Hyponatremia - improved PLAN: continue Lantus 15 units daily and adjust for fasting glucose. continue Regular insulin 7 units three times before meals and adjust for post- prandial glucose. Continue medium dose sliding scale insulin. Monitor glucose q x 6 hourly. Continue carbs consistent diet. Keep glucose less than 180 mg/dl. Patient will need lantus 30 units daily and lispro insulin 10 units tid before meals at discharge. Vitals/Labs Vital Signs Date Time Temp Pulse Resp B/P (MAP) Pulse Ox O2 Delivery O2 Flow Rate FiO2 08/13/25 16:00 98.2 98 16 141/90 99 Room Air 08/13/25 09:17 0 21 Laboratory Tests 08/13/25 04:25 Medications Current Medications Clindamycin HCl/ Dextrose 50 ml @ 100 mls/hr ONCE STAT IV Last administered on 08/07/25at 12:56; Start 08/07/25 at 12:16; Stop 08/07/25 at 12:45; Status DC Sodium Chloride 1,000 ml @ 0 mls/hr ONCE ONCE IV Last administered on 08/07/25at 12:56; Start 08/07/25 at 13:00; Stop 08/07/25 at 13:01; Status DC Morphine Sulfate 2 mg ONCE ONCE IVP; Start 08/07/25 at 13:30; Stop 08/07/25 at 13:31; Status DC Ondansetron HCl 4 mg Q6H PRN IVP Last administered on 08/08/25at 17:44; Start 08/07/25 at 13:30; Stop 09/06/25 at 13:29 Morphine Sulfate 4 mg STK-MED ONCE .ROUTE; Start 08/07/25 at 13:27; Stop 08/07/25 at 13:27; Status DC Morphine Sulfate 2 mg ONCE ONCE IVP Last administered on 08/07/25at 13:34; Start 08/07/25 at 14:00; Stop 08/07/25 at 14:03; Status DC Ketorolac Tromethamine 15 mg Q6H PRN IV Last administered on 08/12/25at 13:25; Start 08/07/25 at 14:00; Stop 08/12/25 at 13:59; Status DC Morphine Sulfate 2 mg Q4H PRN IVP Last administered on 08/11/25at 13:20; Start 08/07/25 at 14:00; Stop 08/12/25 at 16:59; Status DC Sodium Chloride 1,000 ml @ 100 mls/hr Q10H IV Last administered on 08/12/25at 15:09; Start 08/07/25 at 14:00; Stop 09/06/25 at 13:59 Insulin Human Regular INSULIN SLIDING SCAL... ACHS SQ Last administered on 08/08/25at 21:45; Start 08/07/25 at 16:30; Stop 08/08/25 at 23:36; Status DC Acetaminophen 500 mg Q6H PRN PO Last administered on 08/13/25at 15:22; Start 08/07/25 at 14:00; Stop 09/06/25 at 13:59 Vancomycin HCl 1 each AD IV; Start 08/07/25 at 14:00; Stop 08/12/25 at 22:50; Status DC Cefepime HCl 1 gm Q8H IVPB Last administered on 08/13/25at 14:32; Start 08/07/25 at 14:00; Stop 08/17/25 at 13:59 Potassium Chloride 100 ml @ 100 mls/hr AD PRN IV; Start 08/07/25 at 14:00; Stop 09/06/25 at 13:59 Potassium Chloride 20 meq AD PRN PO; Start 08/07/25 at 14:00; Stop 09/06/25 at 13:59 Potassium Chloride 20 meq AD PRN PO Last administered on 08/09/25at 12:08; Start 08/07/25 at 14:00; Stop 09/06/25 at 13:59 Magnesium Sulfate 50 ml @ 0 mls/hr PROTOCOL PRN IV Last administered on 08/13/25at 06:03; Start 08/07/25 at 14:00; Stop 09/06/25 at 13:59 Vancomycin HCl 250 ml @ 125 mls/hr ONCE ONCE IV Last administered on 08/07/25at 15:07; Start 08/07/25 at 15:00; Stop 08/07/25 at 16:59; Status DC Vancomycin HCl 250 ml @ 125 mls/hr Q12H IV Last administered on 08/08/25at 03:13; Start 08/08/25 at 03:00; Stop 08/08/25 at 19:33; Status DC Famotidine 20 mg BID IV Last administered on 08/13/25at 09:17; Start 08/07/25 at 21:00; Stop 09/06/25 at 20:59 Cadexomer Iodine 1 APPL ONCE ONCE TP Last administered on 08/07/25at 20:18; Start 08/07/25 at 19:30; Stop 08/07/25 at 19:31; Status DC Insulin Glargine 12 units DAILY SQ Last administered on 08/10/25at 08:14; Start 08/08/25 at 09:00; Stop 08/11/25 at 07:03; Status DC Fluticasone Propionate 1 SPRAY DAILY EN Last administered on 08/13/25at 09:19; Start 08/08/25 at 12:00; Stop 09/07/25 at 11:59 Fluticasone Propionate 2 SPRAYS ONCE EN; Start 08/08/25 at 11:00; Stop 08/08/25 at 11:07; Status DC Montelukast Sodium 10 mg HS PO Last administered on 08/12/25at 20:19; Start 08/08/25 at 21:00; Stop 09/07/25 at 20:59 Acetaminophen/ Hydrocodone Bitart 1 tab Q6H PRN PO Last administered on 08/10/25at 16:34; Start 08/08/25 at 11:30; Stop 08/11/25 at 07:06; Status DC Gadoterate Meglumine 10 mmol STK-MED ONCE IV; Start 08/08/25 at 16:10; Stop 08/08/25 at 16:11; Status DC Vancomycin HCl 250 ml @ 125 mls/hr Q12H IV Last administered on 08/12/25at 20:19; Start 08/08/25 at 20:00; Stop 08/12/25 at 22:50; Status DC Insulin Human Regular INSULIN SLIDING SCAL... ACHS SQ Last administered on 08/13/25at 07:10; Start 08/09/25 at 07:30; Stop 09/08/25 at 07:29 Cadexomer Iodine DAILY TP Last administered on 08/13/25at 09:21; Start 08/09/25 at 09:00; Stop 09/08/25 at 08:59 Enoxaparin Sodium 30 mg DAILY SQ Last administered on 08/13/25at 09:17; Start 08/09/25 at 09:00; Stop 09/08/25 at 08:59 Insulin Human Regular 5 unit TIDAC SQ Last administered on 08/12/25at 17:15; Start 08/10/25 at 17:00; Stop 08/12/25 at 20:21; Status DC Docusate Sodium 100 mg BID PRN PO Last administered on 08/13/25at 11:27; Start 08/10/25 at 20:30; Stop 09/09/25 at 20:29 Insulin Glargine 15 units DAILY SQ Last administered on 08/13/25at 09:19; Start 08/11/25 at 09:00; Stop 09/10/25 at 08:59 Lidocaine HCl 20 ml STK-MED ONCE .ROUTE; Start 08/12/25 at 06:43; Stop 08/12/25 at 06:43; Status DC Bupivacaine HCl 5 mg STK-MED ONCE .ROUTE; Start 08/12/25 at 06:43; Stop 08/12/25 at 06:43; Status DC Midazolam HCl 2 mg STK-MED ONCE .ROUTE; Start 08/12/25 at 06:46; Stop 08/12/25 at 06:46; Status DC Propofol 200 mg STK-MED ONCE IV; Start 08/12/25 at 06:46; Stop 08/12/25 at 06:46; Status DC Fentanyl Citrate 100 mcg STK-MED ONCE .ROUTE; Start 08/12/25 at 06:46; Stop 08/12/25 at 06:46; Status DC Ondansetron HCl 4 mg STK-MED ONCE .ROUTE; Start 08/12/25 at 07:01; Stop 08/12/25 at 07:01; Status DC Propofol 200 mg STK-MED ONCE IV; Start 08/12/25 at 07:09; Stop 08/12/25 at 07:09; Status DC Fentanyl Citrate 100 mcg STK-MED ONCE .ROUTE; Start 08/12/25 at 07:21; Stop 08/12/25 at 07:22; Status DC Bupivacaine HCl 75 mg STK-MED ONCE IJ Last administered on 08/12/25at 06:50; Start 08/12/25 at 06:50; Stop 08/12/25 at 07:40; Status DC Lidocaine HCl 20 ml STK-MED ONCE MISC Last administered on 08/12/25at 06:51; Start 08/12/25 at 06:51; Stop 08/12/25 at 07:40; Status DC Ketorolac Tromethamine 15 mg Q6H PRN IV; Start 08/12/25 at 20:00; Stop 08/12/25 at 20:05; Status DC Morphine Sulfate 4 mg Q4H PRN IVP Last administered on 08/13/25at 11:28; Start 08/12/25 at 20:30; Stop 08/13/25 at 13:59; Status DC Insulin Human Regular 7 unit TIDAC SQ Last administered on 08/13/25at 11:35; Start 08/13/25 at 07:30; Stop 09/12/25 at 07:29 Linezolid 600 mg Q12H PO Last administered on 08/13/25at 09:19; Start 08/13/25 at 09:00; Stop 08/23/25 at 08:59 Ketorolac Tromethamine 15 mg Q6H PRN IM; Start 08/13/25 at 14:00; Stop 08/13/25 at 17:21; Status DC Ketorolac Tromethamine 15 mg Q6H PRN IV; Start 08/13/25 at 20:00; Stop 08/13/25 at 17:36; Status DC Ketorolac Tromethamine 15 mg Q6H PRN IV Last administered on 08/13/25at 18:15; Start 08/13/25 at 17:30; Stop 08/18/25 at 17:29 VETO MORRIS MD Aug 13, 2025 20:46
--- NOTE | 2025-08-13 23:21 | PN ---
INFECTIOUS DISEASE PROGRESS NOTE Date of Service: Aug 13, 2025 SUBJECTIVE: This is a 44-year-old female patient who is status post Excisional debridement of the right great toe ulcer day # 1. Per report the surgical incision will be re-evaluated on Monday or Monday for possible wound VAC placement. We will discontinue linezolid and cefepime and start patient on ceftriaxone 2 g IV every 24 hours. Remains afebrile, temperature is 98.6 and no reports of nausea or vomiting. We will continue to follow patient's care. PHYSICAL EXAM EYES: Anicteric. Pupils equal and reactive. HENT: No oral thrush seen, moist Oral mucosa. NECK: Supple, no JVD or thyromegaly. LUNGS: Good air entry. No rales, no rhonchi. CARDIOVASCULAR: S1, S2 regular. No murmur heard. ABDOMEN: Soft, non tender, bowel sounds present, no organomegaly. CENTRAL NERVOUS SYSTEM: Awake, alert, oriented x 3. SKIN: No rashes, no swelling. Right great toe wound and cellulitis. LYMPHATICS: No peripheral lymphadenopathy MUSCULOSKELETAL: No joint swelling, erythema or tenderness. EXTREMITIES: No cyanosis or clubbing. BACK: No deformity, no pressure ulcer. GENITOURINARY: No dysuria or hematuria. Vital Sign (Last 12 Hours) 08/13/25 08/13/25 08/13/25 12:00 16:00 20:00 Temp 98.6 98.2 97.5 Pulse 94 98 88 Resp 18 16 18 B/P (MAP) 130/87 141/90 124/81 Pulse Ox 96 99 98 O2 Delivery Room Air Room Air Room Air Intake & Output (last 24hrs) 08/12/25 08/12/25 08/13/25 15:00 23:00 07:00 Intake Total 1125.0 ml 900.0 ml Output Total 0 ml Balance 1125.0 ml 900.0 ml LABS: Laboratory: Test 08/13/25 19:27 08/13/25 11:26 08/13/25 04:25 Range/Units Whole Blood Glucose 171 #H 70-110 MG/DL Bedside Glucose Comment Notified Nurse White Blood Count 11.9 H 4.8-10.8 K/uL Red Blood Count 3.57 L 4.00-5.50 MIL/uL Hemoglobin 10.1 L 12.0-16.0 g/dL Hematocrit 30.6 L 36-48 % Mean Corpuscular Volume 85.7 79-99 fL Mean Corpuscular Hemoglobin 28.3 27.0-33.0 pg Mean Corpuscular Hemoglobin Concent 33.0 32.0-36.0 g/dL Red Cell Distribution Width 11.8 11.0-15.5 % Platelet Count 282 130-400 K/uL Mean Platelet Volume 10.1 7.5-10.5 fL Immature Granulocyte % (Auto) 0.6 0-1 % Neutrophils (%) (Auto) 81.5 H 40.0-77.0 % Lymphocytes (%) (Auto) 11.3 L 21.0-51.0 % Monocytes (%) (Auto) 5.5 3.0-13.0 % Eosinophils (%) (Auto) 0.8 0.0-8.0 % Basophils (%) (Auto) 0.3 0.0-5.0 % Neutrophils # (Auto) 9.7 H 1.8-7.7 K/uL Lymphocytes # (Auto) 1.4 1.0-4.8 K/uL Monocytes # (Auto) 0.7 0.1-1.0 K/uL Eosinophils # (Auto) 0.09 0.00-0.70 K/uL Basophils # (Auto) 0.03 0.00-0.20 K/uL Absolute Immature Granulocyte (auto 0.07 0-1 K/uL Nucleated Red Blood Cells 0.0 0.0-0.19 % Sodium Level 135 L 136-145 mmol/L Potassium Level 4.2 3.5-5.1 mmol/L Chloride Level 102 101-111 mmol/L Carbon Dioxide Level 25 21-32 mmol/L Blood Urea Nitrogen 15 7-18 mg/dL Creatinine 0.6 0.5-1.0 mg/dL Glomerular Filtration Rate Calc 113 >90 mL/min Random Glucose 224 H 70-105 mg/dL Total Calcium 8.7 8.5-10.1 mg/dL Magnesium Level 1.80 1.80-2.40 mg/dL Total Bilirubin 0.6 0.2-1.0 mg/dL Aspartate Amino Transf (AST/SGOT) 19 10-37 U/L Alanine Aminotransferase (ALT/SGPT) 22 12-78 U/L Alkaline Phosphatase 203 H 50-136 U/L Total Protein 6.6 6.0-8.3 g/dL Albumin 2.4 L 3.5-5.0 g/dL ASSESSMENT: Right great toe ulcer secondary to spider bite, status post Excisional debridement. Failed oral antibiotic therapy. Right foot cellulitis. Diabetes mellitus. PLAN: Discontinue linezolid . Discontinue cefepime. Start ceftriaxone 2 g IV every 24 hours. Continue pain management. Continue GI prophylaxis. Continue antidiabetics. We will follow up on the intraoperative cultures results. This case was reviewed and discussed with my supervising physician Dr. Urrutia and the above assessment and plan was formulated and agreed upon. ATTESTATION BY PHYSICIAN I have seen and examined the patient. I reviewed the documentation, medical decision making, and treatment plan as noted by the mid-level provider above. I agree with the findings and plan of care. ÁNGELA URRUTIA MD, MIRTA L [facility] Aug 13, 2025 23:21
[2025-08-14] VITALS: BP 126/79; PULSE 93; RESP 17; TEMP 98.4
[2025-08-14 04:00] VITALS: BP 130/85; PULSE 80; RESP 17; TEMP 97.8
--- NOTE | 2025-08-14 07:55 | PN ---
[facility] PROGRESS NOTE Date of Service: Aug 14, 2025 Time of Service: 07:52 SUBJECTIVE: [ ] Patient stated that she was bitten by a possible spider she did not recall what kind of spider the bit her approximately two weeks ago. She was seen by her primary care physician she was treated with oral antibiotics a local care with no improvement at the condition. Most recently she was treated at the [place] or for her infection incision and drainage was performed at that time and patient was sent to the hospital for further IV antibiotics and wound care. 08/08/25 patient was seen in ED she is fully awake alert oriented x3. Right foot great toe infected cellulitis swollen dressing. continue with IV antibiotics ID we will be following.. Patient was already seen by grain combine driver most likely we will need debridement. Imaging were reviewed. All questions addressed. 08/09/25 patient was seen earlier patient is lying in bed. Patient had a MRI done suspecting osteomyelitis pending results. No fever no chills reported over night continues with broad-spectrum antibiotics. 08/10/25 patient is seen and examined patient continues with redness and swelling to green. MRI early osteomyelitis. Continues broad-spectrum antibiotics waiting for grain combine driver for possible debridement. Denies fever chills. 08/11/25 THE PATIENT WAS SEEN EARLIER TODAY. PATIENT IS SCHEDULED FOR I AND D TOMORROW MORNING. PATIENT CONTINUES WITH BROAD-SPECTRUM ANTIBIOTICS AND PAIN MANAGEMENT. 08/12/25 patient is seen earlier today scheduled for surgery I&D right 1st metatarsal and hallux right. We will follow-up postop. 08/13/25 s/p POD 1 Excisional debridement of soft tissue necrosis to the level of the tendon on the 1st metatarsal and hallux right as per surgeon patient will need a wound VAC placed on Monday. Case management working for [facility] in wound care waiting visits. Patient reports no fever chills overnight. Continues with surgical site pain on pain management for adequate pain control. 08/14 S/P POD 2 recuperating well, most likely will need a wound vac as recommended by Dr Davis. Continue with NWB, will continue with Local wound care for now. 1600 Dr Davis no need for wound vac: therefore the patient and family will be taught on wound care: the patient have have racquel wound care visit: Wound care healing clinic started next Monday. REVIEW OF SYSTEMS CONSTITUTIONAL: Positive for fever, chills, malaise NEUROLOGICAL: Denies headache, amaurosis fugax, motor weakness, sensory deficit, vertigo/spinning sensation, gait abnormalities, or tremors. ENT: No hearing loss, otalgia, otorrhea, rhinitis, rhinorrhea, hoarseness, or sore throat. CARDIOVASCULAR: Denies any exertional angina, dyspnea on exertion, orthopnea, paroxysmal nocturnal dyspnea, palpitations, life-threatening arrhythmias, claudication. PULMONARY: Denies any shortness of breath, cough, phlegm/sputum, hemoptysis, pleuritic chest pain. GASTROINTESTINAL: Denies any type of dysphagia to either liquids or solids. Denies nausea, vomiting, pyrosis, early satiety, abdominal pain, diarrhea, constipation, or changes in stool consistency or caliber. Denies coffee-ground emesis, hematemesis, hematochezia, or melanotic stools. GENITOURINARY: Denies frequency, urgency, nocturia, hematuria or incontinence (Storage/Irritative symptoms.) Low urinary stream, straining to void, urinary intermittency or hesitancy, splitting of the voiding stream, terminal dribbling. ENDOCRINOLOGIC: Denies polyuria, polydipsia, polyphagia or heat/cold intolerances. HEMATOLOGIC: Denies thrombophilia/previous clots, or coagulopathy/bleeding diso rders. ONCOLOGIC: Denies personal history of malignancy. DERMATOLOGIC: Denies rashes or pruritus. PSYCHIATRIC: Denies any suicidal or homicidal ideation. Denies hallucinations. Musculoskeletal: Pain in the right big toe PHYSICAL EXAM GENERAL APPEARANCE: The patient is awake, alert, and oriented, in no acute cardiopulmonary distress. NEUROLOGICAL: Cranial nerves II-XII grossly intact. Motor is 5/5 in bilateral upper and lower extremities proximal to distal. No sensory deficits. HEENT: Face is symmetric. Pupils are equal and reactive. Extraocular movements are intact. NECK: Supple. No JVD. No thyromegaly. No submental, submandibular, pre- /postauricular, occipital or supraclavicular lymphadenopathy. CHEST: Normal chest expansion. No Telemetry. LUNGS: Absence of any rales, rhonchi or any wheezing. CARDIOVASCULAR: Regular. S1 and S2 normal. No appreciable rubs, murmurs or gallops. ABDOMEN: Soft, nontender, and nondistended. There is no rebound, voluntary guarding, or rigidity. : Deferred. No [place]. EXTREMITIES: Patient currently has dressing present in the right big toe. There is open wound noted in the right big toe. There is minimal drainage noted. SKIN: No skin breakdown. Vital Signs (last 8hr) Date Time Temp Pulse Resp B/P (MAP) Pulse Ox O2 Delivery O2 Flow Rate FiO2 08/14/25 04:00 97.9 80 17 130/85 97 Room Air 08/14/25 00:00 98.4 93 17 126/79 95 Room Air LABS: Laboratory: Test 08/14/25 05:32 08/13/25 11:26 08/13/25 04:25 Range/Units Whole Blood Glucose 193 H 70-110 MG/DL Bedside Glucose Comment Notified Nurse White Blood Count 11.9 H 4.8-10.8 K/uL Red Blood Count 3.57 L 4.00-5.50 MIL/uL Hemoglobin 10.1 L 12.0-16.0 g/dL Hematocrit 30.6 L 36-48 % Mean Corpuscular Volume 85.7 79-99 fL Mean Corpuscular Hemoglobin 28.3 27.0-33.0 pg Mean Corpuscular Hemoglobin Concent 33.0 32.0-36.0 g/dL Red Cell Distribution Width 11.8 11.0-15.5 % Platelet Count 282 130-400 K/uL Mean Platelet Volume 10.1 7.5-10.5 fL Immature Granulocyte % (Auto) 0.6 0-1 % Neutrophils (%) (Auto) 81.5 H 40.0-77.0 % Lymphocytes (%) (Auto) 11.3 L 21.0-51.0 % Monocytes (%) (Auto) 5.5 3.0-13.0 % Eosinophils (%) (Auto) 0.8 0.0-8.0 % Basophils (%) (Auto) 0.3 0.0-5.0 % Neutrophils # (Auto) 9.7 H 1.8-7.7 K/uL Lymphocytes # (Auto) 1.4 1.0-4.8 K/uL Monocytes # (Auto) 0.7 0.1-1.0 K/uL Eosinophils # (Auto) 0.09 0.00-0.70 K/uL Basophils # (Auto) 0.03 0.00-0.20 K/uL Absolute Immature Granulocyte (auto 0.07 0-1 K/uL Nucleated Red Blood Cells 0.0 0.0-0.19 % Sodium Level 135 L 136-145 mmol/L Potassium Level 4.2 3.5-5.1 mmol/L Chloride Level 102 101-111 mmol/L Carbon Dioxide Level 25 21-32 mmol/L Blood Urea Nitrogen 15 7-18 mg/dL Creatinine 0.6 0.5-1.0 mg/dL Glomerular Filtration Rate Calc 113 >90 mL/min Random Glucose 224 H 70-105 mg/dL Total Calcium 8.7 8.5-10.1 mg/dL Magnesium Level 1.80 1.80-2.40 mg/dL Total Bilirubin 0.6 0.2-1.0 mg/dL Aspartate Amino Transf (AST/SGOT) 19 10-37 U/L Alanine Aminotransferase (ALT/SGPT) 22 12-78 U/L Alkaline Phosphatase 203 H 50-136 U/L Total Protein 6.6 6.0-8.3 g/dL Albumin 2.4 L 3.5-5.0 g/dL Current Medications Medications (Trade) Dose Ordered Sig/Willis Route PRN Reason Start Time Stop Time Status Last Admin Dose Admin Acetaminophen (TYLenol 500MG TAB) 500 mg Q6H PRN PO MILD PAIN (1-3) 08/07/25 14:00 09/06/25 13:59 08/13/25 21:02 500 MG Acetaminophen/ Hydrocodone Bitart (NORco 5/325MG) 1 tab Q6H PRN PO MODERATE PAIN (4-6) 08/08/25 11:30 08/11/25 07:06 DC 08/10/25 16:34 1 TAB Cadexomer Iodine (Iodosorb Gel 40gm) DAILY TP 08/09/25 09:00 09/08/25 08:59 08/13/25 09:21 1 APPL Cefepime HCl (MAXipime 1 GM vial) 1 gm Q8H IVPB 08/07/25 14:00 08/13/25 23:17 DC 08/13/25 21:02 1 GM Ceftriaxone Sodium (Rocephin 2gm Inj) 2 gm Q24H IVPB 08/14/25 09:00 08/24/25 08:59 Clindamycin HCl/ Dextrose 50 ml @ 100 mls/hr ONCE STAT IV 08/07/25 12:16 08/07/25 12:45 DC 08/07/25 12:56 100 MLS/HR Docusate Sodium (COLace 100MG CAP) 100 mg BID PRN PO CONSTIPATION 08/10/25 20:30 09/09/25 20:29 08/13/25 11:27 100 MG Enoxaparin Sodium (Lovenox) 30 mg DAILY SQ 08/09/25 09:00 09/08/25 08:59 08/13/25 09:17 30 MG Famotidine (Pepcid 20mg Vial) 20 mg BID IV 08/07/25 21:00 09/06/25 20:59 08/13/25 20:59 20 MG Fluticasone Propionate (FLOnase 50 mcg/ spray 16g bottle) 1 SPRAY DAILY EN 08/08/25 12:00 09/07/25 11:59 08/13/25 09:19 1 SPRAYS Fluticasone Propionate (FLOnase 50 mcg/ spray 16g bottle) 2 SPRAYS ONCE EN 08/08/25 11:00 08/08/25 11:07 DC Insulin Glargine (LANtus 100 UNITS/ML 10 ML VIAL) 12 units DAILY SQ 08/08/25 09:00 08/11/25 07:03 DC 08/10/25 08:14 12 UNITS Insulin Glargine (LANtus 100 UNITS/ML 10 ML VIAL) 15 units DAILY SQ 08/11/25 09:00 09/10/25 08:59 08/13/25 09:19 15 UNITS Insulin Human Regular (humuLIN R 100 UNIT/ML 3ML) 5 unit TIDAC SQ 08/10/25 17:00 08/12/25 20:21 DC 08/12/25 17:15 5 UNIT Insulin Human Regular (humuLIN R 100 UNIT/ML 3ML) 7 unit TIDAC SQ 08/13/25 07:30 09/12/25 07:29 08/14/25 06:57 7 UNIT Insulin Human Regular (humuLIN R 100 UNIT/ML 3ML) INSULIN SLIDING SCAL... ACHS SQ 08/07/25 16:30 08/08/25 23:36 DC 08/08/25 21:45 7 UNIT Insulin Human Regular (humuLIN R 100 UNIT/ML 3ML) INSULIN SLIDING SCAL... ACHS SQ 08/09/25 07:30 09/08/25 07:29 08/14/25 06:56 4 UNIT Ketorolac Tromethamine (toRADol) 15 mg Q6H PRN IM MODERATE PAIN (4-6) 08/13/25 14:00 08/13/25 17:21 DC Ketorolac Tromethamine (toRADol) 15 mg Q6H PRN IV MODERATE PAIN (4-6) 08/07/25 14:00 08/12/25 13:59 DC 08/12/25 13:25 15 MG Ketorolac Tromethamine (toRADol) 15 mg Q6H PRN IV MODERATE PAIN (4-6) 08/12/25 20:00 08/12/25 20:05 DC Ketorolac Tromethamine (toRADol) 15 mg Q6H PRN IV MODERATE PAIN (4-6) 08/13/25 17:30 08/18/25 17:29 08/14/25 07:23 15 MG Ketorolac Tromethamine (toRADol) 15 mg Q6H PRN IV MODERATE PAIN (4-6) 08/13/25 20:00 08/13/25 17:36 DC Linezolid (Zyvox) 600 mg Q12H PO 08/13/25 09:00 08/13/25 23:17 DC 08/13/25 20:59 600 MG Magnesium Sulfate 50 ml @ 0 mls/hr PROTOCOL PRN IV HYPOMAGNESEMIA 08/07/25 14:00 09/06/25 13:59 08/13/25 06:03 20 MLS/HR Montelukast Sodium (SinguLAIR) 10 mg HS PO 08/08/25 21:00 09/07/25 20:59 08/13/25 20:59 10 MG Morphine Sulfate (morPHINE 4MG SYG) 2 mg Q4H PRN IVP SEVERE PAIN (7-10) 08/07/25 14:00 08/12/25 16:59 DC 08/11/25 13:20 2 MG Morphine Sulfate (morPHINE 4MG SYG) 4 mg Q4H PRN IVP SEVERE PAIN (7-10) 08/12/25 20:30 08/13/25 13:59 DC 08/13/25 11:28 4 MG Ondansetron HCl (zoFRAN 4MG INJ) 4 mg Q6H PRN IVP NAUSEA/VOMITING 08/07/25 13:30 09/06/25 13:29 08/08/25 17:44 4 MG Potassium Chloride 100 ml @ 100 mls/hr AD PRN IV POTASSIUM PROTOCOL 08/07/25 14:00 09/06/25 13:59 Potassium Chloride (K-Dur/Klor-Con 20meq) 20 meq AD PRN PO POTASSIUM PROTOCOL 08/07/25 14:00 09/06/25 13:59 08/09/25 12:08 20 MEQ Potassium Chloride (KCl 10% Elixir 20meq/15ml) 20 meq AD PRN PO POTASSIUM PROTOCOL 08/07/25 14:00 09/06/25 13:59 Sodium Chloride 1,000 ml @ 100 mls/hr Q10H IV 08/07/25 14:00 09/06/25 13:59 08/12/25 15:09 100 MLS/HR Vancomycin HCl 250 ml @ 125 mls/hr Q12H IV 08/08/25 03:00 08/08/25 19:33 DC 08/08/25 03:13 125 MLS/HR Vancomycin HCl 250 ml @ 125 mls/hr Q12H IV 08/08/25 20:00 08/12/25 22:50 DC 08/12/25 20:19 125 MLS/HR Vancomycin HCl (Vancomycin Protocol) 1 each AD IV 08/07/25 14:00 08/12/25 22:50 DC DIAGNOSTICS / RADIOLOGY: [ ] ASSESSMENT: Cellulitis involving the right big toe with open wound status post incision and drainage by Podiatry failed outpatient treatment POA Great right toe cellulitis with abscess POAs/p 08/12/25 Excisional debridement of soft tissue necrosis to the level of the tendon on the 1st metatarsal and hallux right Right toe infection with STREPTOCOCCUS BOVIS Mild Hyponatremia Diabetes mellitus type2 Intractable pain to right big toe poa EARLY [id number] proximal and distal phalanx. POA depression active PLAN: - patient to be admitted to medical-surgical unit -in reference to cellulitis involving the right big toe. Medical Reimbursement Specialist: ID, grain combine driver Dr Davis POD 2 1st metatarsal and hallux right will follow surgeon post operation recommendation: local wound care with Xeroform dressings to the area continue flushing with saline solution : no need for wound vac: PATIENT TEACHING on wound dressing. Elevated lower ext. NWB. Microbiology: Wound cultures with STREPTOCOCCUS BOVIS ID discontinue Linezolid and started IV Rocephin 2gm prescription left for Keflex 500 mg po TID for 6 weeks. wound Care management [facility]. A.c. HS monitoring with sliding scale coverage and long acting insulin Lantus 12 units daily Replace electrolytes to keep potassium above 4.0 magnesium above 2.0 Labs in a.m. CBC CMP magnesium Continue DVT GI prophylaxis Continue pain management for adequate pain control Precautions, aggressive offloading nonweightbearing -further orders per hospitalization course all questions addressed ATTESTATION BY PHYSICIAN I have seen and examined the patient. I reviewed the documentation, medical decision making, and treatment plan as noted by the mid-level provider above. I agree with the findings and plan of care. DESHAUN RYAN MD, ELIZABETH NP Aug 14, 2025 07:55
[2025-08-14 08:00] VITALS: BP 132/82; PULSE 85; RESP 16; TEMP 98.3; O2SAT 99
[2025-08-14 08:08] LABS: IMMATURE GRANULOCYTE ABSOLUTE 0.09 K/uL (0-1); NUCLEATED RED BLOOD CELLS 0.0 % (0.0-0.19); PLATELET COUNT (AUTO) 324 K/uL (130-400); RED BLOOD CELL COUNT(AUTO) 3.60 MIL/uL (4.00-5.50); RED CELL DISTRIBUTION WIDTH 11.8 % (11.0-15.5); WHITE BLOOD COUNT (AUTO) 11.0 K/uL (4.8-10.8)
[2025-08-14 08:25] LABS: ASPARTATE AMINOTRANSFERASE 20.0 U/L (10-37); CREATININE 0.6 mg/dL (0.5-1.0); GLOMERULAR FILTR. RATE CALC 113.0 mL/min (>90); GLUCOSE,RANDOM 180.0 mg/dL (70-105); SODIUM SERUM 137.0 mmol/L (136-145); TOTAL PROTEIN, SERUM 6.9 g/dL (6.0-8.3); UREA NITROGEN, BLOOD 18.0 mg/dL (7-18)
[2025-08-14 11:48] VITALS: BP 129/87; PULSE 88; RESP 18; TEMP 98
--- NOTE | 2025-08-14 12:24 | PN ---
INFECTIOUS DISEASE PROGRESS NOTE Date of Service: Aug 14, 2025 SUBJECTIVE: This is a 44-year-old female patient who is status post Excisional debridement of the right great toe ulcer on 08/12/2025. Patient is afebrile this morning, temperature 98.1. The preliminary intraoperative wound cultures is growing Gram-positive cocci in chains. We will continue on ceftriaxone and from Infectious Disease standpoint patient can be discharged on cephalexin t.i.d. for 6 weeks when ready to discharge. Prescription was written. PHYSICAL EXAM EYES: Anicteric. Pupils equal and reactive. HENT: No oral thrush seen, moist Oral mucosa. NECK: Supple, no JVD or thyromegaly. LUNGS: Good air entry. No rales, no rhonchi. CARDIOVASCULAR: S1, S2 regular. No murmur heard. ABDOMEN: Soft, non tender, bowel sounds present, no organomegaly. CENTRAL NERVOUS SYSTEM: Awake, alert, oriented x 3. SKIN: No rashes, no swelling. Right great toe wound and cellulitis. LYMPHATICS: No peripheral lymphadenopathy MUSCULOSKELETAL: No joint swelling, erythema or tenderness. EXTREMITIES: No cyanosis or clubbing. BACK: No deformity, no pressure ulcer. GENITOURINARY: No dysuria or hematuria. Vital Sign (Last 12 Hours) 08/14/25 08/14/25 08/14/25 04:00 08:00 11:48 Temp 97.9 98.2 98.1 Pulse 80 85 88 Resp 17 16 18 B/P (MAP) 130/85 132/82 129/87 Pulse Ox 97 99 96 O2 Delivery Room Air Room Air Room Air FiO2 21 21 Intake & Output (last 24hrs) 08/13/25 08/13/25 08/14/25 15:00 23:00 07:00 Intake Total 240 ml Balance 240 ml LABS: Laboratory: Test 08/14/25 11:09 08/14/25 08:04 Range/Units Whole Blood Glucose 198 H 70-110 MG/DL Bedside Glucose Comment Notified Nurse White Blood Count 11.0 H 4.8-10.8 K/uL Red Blood Count 3.60 L 4.00-5.50 MIL/uL Hemoglobin 10.1 L 12.0-16.0 g/dL Hematocrit 31.0 L 36-48 % Mean Corpuscular Volume 86.1 79-99 fL Mean Corpuscular Hemoglobin 28.1 27.0-33.0 pg Mean Corpuscular Hemoglobin Concent 32.6 32.0-36.0 g/dL Red Cell Distribution Width 11.8 11.0-15.5 % Platelet Count 324 130-400 K/uL Mean Platelet Volume 9.6 7.5-10.5 fL Immature Granulocyte % (Auto) 0.8 0-1 % Neutrophils (%) (Auto) 78.4 H 40.0-77.0 % Lymphocytes (%) (Auto) 13.6 L 21.0-51.0 % Monocytes (%) (Auto) 5.6 3.0-13.0 % Eosinophils (%) (Auto) 1.3 0.0-8.0 % Basophils (%) (Auto) 0.3 0.0-5.0 % Neutrophils # (Auto) 8.6 H 1.8-7.7 K/uL Lymphocytes # (Auto) 1.5 1.0-4.8 K/uL Monocytes # (Auto) 0.6 0.1-1.0 K/uL Eosinophils # (Auto) 0.14 0.00-0.70 K/uL Basophils # (Auto) 0.03 0.00-0.20 K/uL Absolute Immature Granulocyte (auto 0.09 0-1 K/uL Nucleated Red Blood Cells 0.0 0.0-0.19 % Sodium Level 137 136-145 mmol/L Potassium Level 4.0 3.5-5.1 mmol/L Chloride Level 104 101-111 mmol/L Carbon Dioxide Level 26 21-32 mmol/L Blood Urea Nitrogen 18 7-18 mg/dL Creatinine 0.6 0.5-1.0 mg/dL Glomerular Filtration Rate Calc 113 >90 mL/min Random Glucose 180 H 70-105 mg/dL Total Calcium 8.5 8.5-10.1 mg/dL Magnesium Level 1.90 1.80-2.40 mg/dL Total Bilirubin 0.4 0.2-1.0 mg/dL Aspartate Amino Transf (AST/SGOT) 20 10-37 U/L Alanine Aminotransferase (ALT/SGPT) 24 12-78 U/L Alkaline Phosphatase 216 H 50-136 U/L Total Protein 6.9 6.0-8.3 g/dL Albumin 2.5 L 3.5-5.0 g/dL PATIENT: BRUNO MOSST: [id number] LOC: [facility] U: [id number] AGE/SX: 44/F ROOM: 323 RE08/07/[address]: LUIS HEAD MD : 1980 BED: 1 DIS: STATUS: ADM IN TLOC: SPEC: [id number] JEFF: 08/12/25 STATUS: RES REQ: [id number] RECD: 08/12/[address]: LATRICE RIVERA DPJaquan SOURCE: TISSUE ENTR: 08/12/[address]: NÁGELA URRUTIA MD SPDESC: OTHER VEOT MORRIS MD, ADARSH MD MARTINEZ, ANTONIO MD ORDERED: GS, TETO CULTURE, AEROBIC CULTURE COMMENTS: Has specimen been collected/obtained? Y Specimen Comment: GRAM STAIN RIGHT FOOT BIG TOE Specimen Comment: DEEP TISSUE CULTURE RIGHT FOOT BIG TOE Specimen Comment: RIGHT FOOT BIG TOE TISSUE CULTURE Has specimen been collected/obtained? Y CONTINUED ON NEXT PAGE RUN DATE: 08/14/25 [facility] PAGE 2 RUN TIME: [id number] [place] [address] Department of Laboratories [facility] # [id number] Auto Research Engineer: Mihai Hidalgo DO Specimen Report SPEC: [id number] PATIENT: BRUNO MOSS [id number] (Continued) Specimen Comment: GRAM STAIN RIGHT FOOT BIG TOE Specimen Comment: DEEP TISSUE CULTURE RIGHT FOOT BIG TOE Specimen Comment: RIGHT FOOT BIG TOE TISSUE CULTURE Has specimen been collected/obtained? Y Specimen Comment: GRAM STAIN RIGHT FOOT BIG TOE Specimen Comment: DEEP TISSUE CULTURE RIGHT FOOT BIG TOE Specimen Comment: RIGHT FOOT BIG TOE TISSUE CULTURE Has specimen been collected/obtained? Y Specimen Comment: GRAM STAIN RIGHT FOOT BIG TOE Specimen Comment: DEEP TISSUE CULTURE RIGHT FOOT BIG TOE Specimen Comment: RIGHT FOOT BIG TOE TISSUE CULTURE Procedure Result King Date-Time GRAM STAIN ONLY Final 08/12/25 GRAM STAIN: 2+ WBC 2+ GRAM POSITIVE COCCI IN PAIRS 1+ GRAM NEGATIVE RODS 1+ GRAM POSITIVE RODS ANAEROBIC CULTURE Preliminary 08/14/25 [facility] DESCRIPTION: REPORT 1: NO ANAEROBES AT 24-35 HOURS; STUDIES TO CONTINUE REPORT 2: NO ANAEROBES AT 48-59 HOURS; STUDIES TO CONTINUE Test(s) performed by: [facility] [address] [place] [address] AEROBIC CULTURE Preliminary 08/14/25 [facility] DESCRIPTION: REPORT 1: NO GROWTH AT 24-35 HOURS; STUDIES TO CONTINUE REPORT 2: 1+ GRAM POSITIVE COCCI IN CHAINS IDENTIFICATION AND SENSITIVITY TO FOLLOW ASSESSMENT: Right great toe ulcer secondary to spider bite, status post Excisional debridement on 08/12/2025. Failed oral antibiotic therapy. Right foot cellulitis. Diabetes mellitus. PLAN: Continue ceftriaxone. Continue pain management. Continue antidiabetics. Wound care as recommended by geriatric nursing assistant. Patient can be discharged on cephalexin t.i.d. for six weeks when ready to discharge. Prescription was written. This case was reviewed and discussed with my supervising physician Dr. Urrutia and the above assessment and plan was formulated and agreed upon. ATTESTATION BY PHYSICIAN I have seen and examined the patient. I reviewed the documentation, medical decision making, and treatment plan as noted by the mid-level provider above. I agree with the findings and plan of care. ÁNGELA URRUTIA MD, MIRTA L [facility] Aug 14, 2025 12:24
--- NOTE | 2025-08-14 15:09 | NUR ---
[facility] Follow-up: Patient re-assessed by wound healing team. See wound assessment. Assessment and recommendations provided to primary nurse. Education provided. Addendum: 08/15/25 at 1550 by SILVIA NOVAK RN RN/ Amended: Links added.
[2025-08-14 16:00] VITALS: BP 127/87; PULSE 87; RESP 16; TEMP 97.9
[2025-08-14 20:00] VITALS: BP 141/86; PULSE 90; RESP 20; TEMP 98.6
--- NOTE | 2025-08-14 22:02 | PN ---
Endocrinology progress note DOS:08/14/25 subjective: glucose are improving. Home diabetic regimen: lispro insulin 20 units tid before meals Hba1c 14.5% glucose runs greater than 200 mg/dl. REVIEW OF SYSTEMS CONSTITUTIONAL: Positive for fever, chills, malaise but improving. NEUROLOGICAL: Denies headache, amaurosis fugax, motor weakness, sensory deficit, vertigo/spinning sensation, gait abnormalities, or tremors. ENT: No hearing loss, otalgia, otorrhea, rhinitis, rhinorrhea, hoarseness, or sore throat. CARDIOVASCULAR: Denies any exertional angina, dyspnea on exertion, orthopnea, paroxysmal nocturnal dyspnea, palpitations, life-threatening arrhythmias, claudication. PULMONARY: Denies any shortness of breath, cough, phlegm/sputum, hemoptysis, pleuritic chest pain. GASTROINTESTINAL: Denies any type of dysphagia to either liquids or solids. Denies nausea, vomiting, pyrosis, early satiety, abdominal pain, diarrhea, constipation, or changes in stool consistency or caliber. Denies coffee-ground emesis, hematemesis, hematochezia, or melanotic stools. GENITOURINARY: Denies frequency, urgency, nocturia, hematuria or incontinence (Storage/Irritative symptoms.) Low urinary stream, straining to void, urinary intermittency or hesitancy, splitting of the voiding stream, terminal dribbling. ENDOCRINOLOGIC: Denies polyuria, polydipsia, polyphagia or heat/cold intolerances. HEMATOLOGIC: Denies thrombophilia/previous clots, or coagulopathy/bleeding disorders. ONCOLOGIC: Denies personal history of malignancy. DERMATOLOGIC: Denies rashes or pruritus. PSYCHIATRIC: Denies any suicidal or homicidal ideation. Denies hallucinations. Musculoskeletal: Pain in the right big toe PAST MEDICAL HISTORY: Diabetes mellitus type 2 PAST SURGICAL HISTORY: History of , history of tubal ligation PAST SOCIAL HISTORY: Denied any smoking, alcohol, drug use FAMILY HISTORY: Denied any pertinent family history Coded Allergies: No Known Drug Allergies (Unverified Allergy, Unknown, 08/07/25) DIAGNOSTICS / RADIOLOGY: Foot x-ray showed no acute findings ASSESSMENT: uncontrolled type 2 DM, POA she wa diagnosed with dm-2 two weeks ago. glucose runs greater than 200 mg/dl. Cellulitis involving the right big toe with open wound status post incision and drainage by Podiatry failed outpatient treatment POA now s/p excisional debridement I&D pending Mild Hyponatremia - improved PLAN: continue Lantus 15 units daily and adjust for fasting glucose. continue Regular insulin 7 units three times before meals and adjust for post- prandial glucose. Continue medium dose sliding scale insulin. Monitor glucose q x 6 hourly. Continue carbs consistent diet. Keep glucose less than 180 mg/dl. Patient will need lantus 30 units daily and lispro insulin 10 units tid before meals at discharge. Vitals/Labs Vital Signs Date Time Temp Pulse Resp B/P (MAP) Pulse Ox O2 Delivery O2 Flow Rate FiO2 08/14/25 20:00 98.6 90 20 141/86 96 Room Air 08/14/25 16:00 21 08/14/25 08:00 0 Laboratory Tests 08/14/25 08:04 Medications Current Medications Clindamycin HCl/ Dextrose 50 ml @ 100 mls/hr ONCE STAT IV Last administered on 08/07/25at 12:56; Start 08/07/25 at 12:16; Stop 08/07/25 at 12:45; Status DC Sodium Chloride 1,000 ml @ 0 mls/hr ONCE ONCE IV Last administered on 08/07/25at 12:56; Start 08/07/25 at 13:00; Stop 08/07/25 at 13:01; Status DC Morphine Sulfate 2 mg ONCE ONCE IVP; Start 08/07/25 at 13:30; Stop 08/07/25 at 13:31; Status DC Ondansetron HCl 4 mg Q6H PRN IVP Last administered on 08/08/25at 17:44; Start 08/07/25 at 13:30; Stop 09/06/25 at 13:29 Morphine Sulfate 4 mg STK-MED ONCE .ROUTE; Start 08/07/25 at 13:27; Stop 08/07/25 at 13:27; Status DC Morphine Sulfate 2 mg ONCE ONCE IVP Last administered on 08/07/25at 13:34; Start 08/07/25 at 14:00; Stop 08/07/25 at 14:03; Status DC Ketorolac Tromethamine 15 mg Q6H PRN IV Last administered on 08/12/25at 13:25; Start 08/07/25 at 14:00; Stop 08/12/25 at 13:59; Status DC Morphine Sulfate 2 mg Q4H PRN IVP Last administered on 08/11/25at 13:20; Start 08/07/25 at 14:00; Stop 08/12/25 at 16:59; Status DC Sodium Chloride 1,000 ml @ 100 mls/hr Q10H IV Last administered on 08/14/25at 12:21; Start 08/07/25 at 14:00; Stop 09/06/25 at 13:59 Insulin Human Regular INSULIN SLIDING SCAL... ACHS SQ Last administered on 08/08/25at 21:45; Start 08/07/25 at 16:30; Stop 08/08/25 at 23:36; Status DC Acetaminophen 500 mg Q6H PRN PO Last administered on 08/13/25at 21:02; Start 08/07/25 at 14:00; Stop 09/06/25 at 13:59 Vancomycin HCl 1 each AD IV; Start 08/07/25 at 14:00; Stop 08/12/25 at 22:50; Status DC Cefepime HCl 1 gm Q8H IVPB Last administered on 08/13/25at 21:02; Start 08/07/25 at 14:00; Stop 08/13/25 at 23:17; Status DC Potassium Chloride 100 ml @ 100 mls/hr AD PRN IV; Start 08/07/25 at 14:00; Stop 09/06/25 at 13:59 Potassium Chloride 20 meq AD PRN PO; Start 08/07/25 at 14:00; Stop 09/06/25 at 13:59 Potassium Chloride 20 meq AD PRN PO Last administered on 08/09/25at 12:08; Start 08/07/25 at 14:00; Stop 09/06/25 at 13:59 Magnesium Sulfate 50 ml @ 0 mls/hr PROTOCOL PRN IV Last administered on 08/13/25at 06:03; Start 08/07/25 at 14:00; Stop 09/06/25 at 13:59 Vancomycin HCl 250 ml @ 125 mls/hr ONCE ONCE IV Last administered on 08/07/25at 15:07; Start 08/07/25 at 15:00; Stop 08/07/25 at 16:59; Status DC Vancomycin HCl 250 ml @ 125 mls/hr Q12H IV Last administered on 08/08/25at 03:13; Start 08/08/25 at 03:00; Stop 08/08/25 at 19:33; Status DC Famotidine 20 mg BID IV Last administered on 08/14/25at 20:26; Start 08/07/25 at 21:00; Stop 09/06/25 at 20:59 Cadexomer Iodine 1 APPL ONCE ONCE TP Last administered on 08/07/25at 20:18; Start 08/07/25 at 19:30; Stop 08/07/25 at 19:31; Status DC Insulin Glargine 12 units DAILY SQ Last administered on 08/10/25at 08:14; Start 08/08/25 at 09:00; Stop 08/11/25 at 07:03; Status DC Fluticasone Propionate 1 SPRAY DAILY EN Last administered on 08/14/25at 10:52; Start 08/08/25 at 12:00; Stop 09/07/25 at 11:59 Fluticasone Propionate 2 SPRAYS ONCE EN; Start 08/08/25 at 11:00; Stop 08/08/25 at 11:07; Status DC Montelukast Sodium 10 mg HS PO Last administered on 08/14/25at 20:26; Start 08/08/25 at 21:00; Stop 09/07/25 at 20:59 Acetaminophen/ Hydrocodone Bitart 1 tab Q6H PRN PO Last administered on 08/10/25at 16:34; Start 08/08/25 at 11:30; Stop 08/11/25 at 07:06; Status DC Gadoterate Meglumine 10 mmol STK-MED ONCE IV; Start 08/08/25 at 16:10; Stop 08/08/25 at 16:11; Status DC Vancomycin HCl 250 ml @ 125 mls/hr Q12H IV Last administered on 08/12/25at 20:19; Start 08/08/25 at 20:00; Stop 08/12/25 at 22:50; Status DC Insulin Human Regular INSULIN SLIDING SCAL... ACHS SQ Last administered on 08/14/25at 20:32; Start 08/09/25 at 07:30; Stop 09/08/25 at 07:29 Cadexomer Iodine DAILY TP Last administered on 08/14/25at 11:05; Start 08/09/25 at 09:00; Stop 09/08/25 at 08:59 Enoxaparin Sodium 30 mg DAILY SQ Last administered on 08/14/25at 08:28; Start 08/09/25 at 09:00; Stop 09/08/25 at 08:59 Insulin Human Regular 5 unit TIDAC SQ Last administered on 08/12/25at 17:15; Start 08/10/25 at 17:00; Stop 08/12/25 at 20:21; Status DC Docusate Sodium 100 mg BID PRN PO Last administered on 08/14/25at 11:52; Start 08/10/25 at 20:30; Stop 09/09/25 at 20:29 Insulin Glargine 15 units DAILY SQ Last administered on 08/14/25at 08:44; Start 08/11/25 at 09:00; Stop 09/10/25 at 08:59 Lidocaine HCl 20 ml STK-MED ONCE .ROUTE; Start 08/12/25 at 06:43; Stop 08/12/25 at 06:43; Status DC Bupivacaine HCl 5 mg STK-MED ONCE .ROUTE; Start 08/12/25 at 06:43; Stop 08/12/25 at 06:43; Status DC Midazolam HCl 2 mg STK-MED ONCE .ROUTE; Start 08/12/25 at 06:46; Stop 08/12/25 at 06:46; Status DC Propofol 200 mg STK-MED ONCE IV; Start 08/12/25 at 06:46; Stop 08/12/25 at 06:46; Status DC Fentanyl Citrate 100 mcg STK-MED ONCE .ROUTE; Start 08/12/25 at 06:46; Stop 08/12/25 at 06:46; Status DC Ondansetron HCl 4 mg STK-MED ONCE .ROUTE; Start 08/12/25 at 07:01; Stop 08/12/25 at 07:01; Status DC Propofol 200 mg STK-MED ONCE IV; Start 08/12/25 at 07:09; Stop 08/12/25 at 07:09; Status DC Fentanyl Citrate 100 mcg STK-MED ONCE .ROUTE; Start 08/12/25 at 07:21; Stop 08/12/25 at 07:22; Status DC Bupivacaine HCl 75 mg STK-MED ONCE IJ Last administered on 08/12/25at 06:50; Start 08/12/25 at 06:50; Stop 08/12/25 at 07:40; Status DC Lidocaine HCl 20 ml STK-MED ONCE MISC Last administered on 08/12/25at 06:51; Start 08/12/25 at 06:51; Stop 08/12/25 at 07:40; Status DC Ketorolac Tromethamine 15 mg Q6H PRN IV; Start 08/12/25 at 20:00; Stop 08/12/25 at 20:05; Status DC Morphine Sulfate 4 mg Q4H PRN IVP Last administered on 08/13/25at 11:28; Start 08/12/25 at 20:30; Stop 08/13/25 at 13:59; Status DC Insulin Human Regular 7 unit TIDAC SQ Last administered on 08/14/25at 17:14; Start 08/13/25 at 07:30; Stop 09/12/25 at 07:29 Linezolid 600 mg Q12H PO Last administered on 08/13/25at 20:59; Start 08/13/25 at 09:00; Stop 08/13/25 at 23:17; Status DC Ketorolac Tromethamine 15 mg Q6H PRN IM; Start 08/13/25 at 14:00; Stop 08/13/25 at 17:21; Status DC Ketorolac Tromethamine 15 mg Q6H PRN IV; Start 08/13/25 at 20:00; Stop 08/13/25 at 17:36; Status DC Ketorolac Tromethamine 15 mg Q6H PRN IV Last administered on 08/14/25at 20:27; Start 08/13/25 at 17:30; Stop 08/18/25 at 17:29 Ceftriaxone Sodium 2 gm Q24H IVPB Last administered on 08/14/25at 08:28; Start 08/14/25 at 09:00; Stop 08/24/25 at 08:59 VETO MORRIS MD Aug 14, 2025 22:02
[2025-08-15] VITALS: BP 132/86; PULSE 90; RESP 16; TEMP 98
[2025-08-15 04:00] VITALS: BP 129/86; PULSE 89; RESP 16; TEMP 98.2
[2025-08-15 08:00] VITALS: BP 125/79; PULSE 86; RESP 20; TEMP 98.2; O2SAT 96
[2025-08-15] MEDS ORDERED: INSU3INS3 SQ (10:22)
[2025-08-15] MEDS ORDERED: ACET-2079 PO (10:22)
[2025-08-15] MEDS ORDERED: INSU100I56 SQ (10:22)
--- NOTE | 2025-08-15 10:51 | DS ---
Discharge Summary Hospital Course Summary: Patient stated that she was bitten by a possible spider she did not recall what kind of spider the bit her approximately two weeks ago. She was seen by her primary care physician she was treated with oral antibiotics a local care with no improvement at the condition. Most recently she was treated at the [facility] or for her infection incision and drainage was performed at that time and patient was sent to the hospital for further IV antibiotics and wound care. 08/08/25 patient was seen in ED she is fully awake alert oriented x3. Right foot great toe infected cellulitis swollen dressing. continue with IV antibiotics ID we will be following.. Patient was already seen by milieu counselor most likely we will need debridement. Imaging were reviewed. All questions addressed. 08/09/25 patient was seen earlier patient is lying in bed. Patient had a MRI done suspecting osteomyelitis pending results. No fever no chills reported overnight continues with broad-spectrum antibiotics. 08/10/25 patient is seen and examined patient continues with redness and swelling to green. MRI early osteomyelitis. Continues broad-spectrum antibiotics waiting for milieu counselor for possible debridement. Denies fever chills. 08/11/25 THE PATIENT WAS SEEN EARLIER TODAY. PATIENT IS SCHEDULED FOR I AND D TOMORROW MORNING. PATIENT CONTINUES WITH BROAD-SPECTRUM ANTIBIOTICS AND PAIN MANAGEMENT. 08/12/25 patient is seen earlier today scheduled for surgery I&D right 1st me tatarsal and hallux right. We will follow-up postop. 08/13/25 s/p POD 1 Excisional debridement of soft tissue necrosis to the level of the tendon on the 1st metatarsal and hallux right as per surgeon patient will need a wound VAC placed on Monday. Case management working for [facility] in wound care waiting visits. Patient reports no fever chills overnight. Continues with surgical site pain on pain management for adequate pain control. 08/14 S/P POD 2 recuperating well, most likely will need a wound vac as r ecommended by Dr Davis. Continue with NWB, will continue with Local wound care for now. 1600 Dr Davis no need for wound vac: therefore the patient and family will be taught on wound care: the patient have have racquel wound care visit: Wound care healing clinic started next Monday. 08/15/25 was cleared by surgeon patient can be discharged home without wound VAC we will continue with local wound care as directed by milieu counselor nonweightbearing to right foot. Patient was taught how to do dressing changes she will follow-up with wound healing clinic next Monday01/18/2025. Infectious disease discharge patient with oral antibiotics cephalexin 500mg t.i.d. p.o. for six weeks. Patient was also advised to keep her blood sugars below [address] Morris endrocriniologist: was consulted: insulin regiment recommendation upon discharged: Patient will need lantus 30 units daily and lispro insulin 10 units tid before meals . Discussed A1c was 14 goal target 7.0 questions and concerns were addressed. Patient denied chest pain or shortness for breath patient is clinically and hemodynamically stable for disch arge, Procedure(s): Operative Note: DATE OF PROCEDURE: 08/12/25 SURGEON: LATRICE DAVIS DPM ANIMAL CARETAKER SUPERVISOR: Vivek Tao ANESTHESIA: Local MAC 1% xylocaine 0.25% Marcaine plain total of 20 cc to right foot ANESTHESIOLOGIST/MINING MACHINERY ASSEMBLER: Julio Broussard MINING MACHINERY ASSEMBLER PREOPERATIVE DIAGNOSIS: Ulcer of the right foot 1st metatarsal and hallux secondary to brown recluse spider bite POSTOPERATIVE DIAGNOSIS: Ulcer right foot 1st metatarsal hallux secondary to brown recluse spider bite SYNOPSIS: This 44 years old female was bitten by a brown recluse spider apparently developed cellulitis ulcer and necrosis of the area of the at this time was brought to the emergency room and then was started treatment with the antibiotics at this moment brought to the operating room for debridement of necrotic tissue from the ulcer. Patient educated on the disease and agree to the treatment plan at this moment. PROCEDURE: Excisional debridement of soft tissue necrosis to the level of the tendon on the 1st metatarsal and hallux right ESTIMATED BLOOD LOSS: 10 cc INDICATIONS: Necrotic tissue and cellulitis associated with the spy the right. DESCRIPTION OF PROCEDURE: Patient was brought into the operating room table placed in the supine position on the IV sedation local anesthesia was achieved via local infiltration 1% xylocaine 0.25% Marcaine plain a total of 20 cc injected in the forefoot area. At this moment the foot was prepped and dairy draped in the usual sterile fashion. Attention was directed towards the medial aspect of the metatarsophalangeal joint area were area of necrosis ulceration was identified this area of necrosis was excised easily debrided completely down to the bone level. At this moment approximately half a cc of purulent discharge was obtained from this area this was drained completely further debridement was performed utilizing blunt instrumentation of the dorsal plantar and proximal areas of the metatarsophalangeal joint some more purulent discharge was noted to be arising from the plantar aspect of the hallux this was drained completely further debridement was completed utilizing a rongeur at this time the area was flushed utilizing copious amounts of saline solution prior to this cultures and sensitivity were obtained. A total of 1 L of saline solution was utilizing for flushing. Dressing was applied utilizing Xeroform dressing 4x4s and Kerlix patient tolerated procedure and anesthesia well. Was sent to recovery room then to the floor for continued local wound care and IV antibiotic therapy. LATRICE DAVIS DPM Assessment/Plan: Discharged Dx's; Cellulitis involving the right big toe with open wound status post incision and drainage by Podiatry failed outpatient treatment POA Great right toe cellulitis with abscess POAs/p 08/12/25 Excisional debridement of soft tissue necrosis to the level of the tendon on the 1st metatarsal and hallux right Right toe infection with STREPTOCOCCUS BOVIS Mild Hyponatremia Diabetes mellitus type2 Intractable pain to right big toe poa EARLY [id number] proximal and distal phalanx. POA depression active PLAN: ADMISSION DATE: 08/07/28 DISCHARGE DATE: 08/15/25 DISPOSITION: home with Racquel visit: at Wound healing clinic CONDITION: stable PATCHING MACHINE OPERATOR(S): Braille Coder; Dr Davis ID: Dr York, FOLLOW UP APPOINTMENT(S): Dr Davis one wk. Wound Healing Clinic 08/20/25 PROCEDURES: Excisional debridement of soft tissue necrosis to the level of the tendon on the 1st metatarsal and hallux right IMAGING (S) report attached to summary : mri right foot, xray right foot, arterial doppler MICROBIOLOGY: report attached to summary; Wound cultures, and blood cultures ACTIVITY: ab mi NWB to right foot. HOME MEDICATIONS: changes on Insulin Lispro: w CHANGES ON HOME MEDICATIONS: insulin Lispro 10 units TID before meals. and Lantus 30 unit am NEW MEDICATIONS insulin regiment: as per DR Lise York: written prescription: Cephalexin 500mg PO TID for 6 wks. TEACHING: On tight glycemic control we will healing blood sugars below 200. Goal target A1c 7.0 will continue with 1800 ADA diet. Wound care dressing: Xeroform dressings to the area continue flushing with saline solution. Emergency instructions: The patient was instructed to present to the nearest Emergency Department or call 911 should their symptoms return or worsen. Discharge Instructions: RUN DATE: 08/15/25 [facility] PAGE 1 RUN TIME: [phone] [address], [place] [address] Department of Laboratories [place] # [id number] Digital Art Director: Mihai Hidalgo DO Specimen Report PATIENT: BRUNO MOSS ACCT: [id number] LOC: [facility] U: [id number] AGE/SX: 44/F ROOM: [facility] RE08/07/[address]: LUIS HEAD MD : 1980 BED: 1 DIS: STATUS: ADM IN TLOC: SPEC: [id number] JEFF: 08/12/25 STATUS: RES REQ: [id number] RECD: 08/12/[address] [facility] [address]: LATRICE DAVIS DPM SOURCE: TISSUE ENTR: 08/12/[address] [facility] [address]: ÁNGELA YORK MD [facility] OTHER VETO MORRIS MD, ADARSH MD MARTINEZ, ANTONIO MD ORDERED: GS, TETO CULTURE, AEROBIC CULTURE COMMENTS: Has specimen been collected/obtained? Y Specimen Comment: GRAM STAIN RIGHT FOOT BIG TOE Specimen Comment: DEEP TISSUE CULTURE RIGHT FOOT BIG TOE Specimen Comment: RIGHT FOOT BIG TOE TISSUE CULTURE Has specimen been collected/obtained? Y Specimen Comment: GRAM STAIN RIGHT FOOT BIG TOE Specimen Comment: DEEP TISSUE CULTURE RIGHT FOOT BIG TOE Specimen Comment: RIGHT FOOT BIG TOE TISSUE CULTURE Has specimen been collected/obtained? Y Specimen Comment: GRAM STAIN RIGHT FOOT BIG TOE Specimen Comment: DEEP TISSUE CULTURE RIGHT FOOT BIG TOE Specimen Comment: RIGHT FOOT BIG TOE TISSUE CULTURE Has specimen been collected/obtained? Y Specimen Comment: GRAM STAIN RIGHT FOOT BIG TOE Specimen Comment: DEEP TISSUE CULTURE RIGHT FOOT BIG TOE Specimen Comment: RIGHT FOOT BIG TOE TISSUE CULTURE Has specimen been collected/obtained? Y Specimen Comment: GRAM STAIN RIGHT FOOT BIG TOE Specimen Comment: DEEP TISSUE CULTURE RIGHT FOOT BIG TOE Specimen Comment: RIGHT FOOT BIG TOE TISSUE CULTURE Has specimen been collected/obtained? Y Specimen Comment: GRAM STAIN RIGHT FOOT BIG TOE Specimen Comment: DEEP TISSUE CULTURE RIGHT FOOT BIG TOE Specimen Comment: RIGHT FOOT BIG TOE TISSUE CULTURE Has specimen been collected/obtained? Y Specimen Comment: GRAM STAIN RIGHT FOOT BIG TOE Specimen Comment: DEEP TISSUE CULTURE RIGHT FOOT BIG TOE Specimen Comment: RIGHT FOOT BIG TOE TISSUE CULTURE Has specimen been collected/obtained? Y Specimen Comment: GRAM STAIN RIGHT FOOT BIG TOE Specimen Comment: DEEP TISSUE CULTURE RIGHT FOOT BIG TOE Specimen Comment: RIGHT FOOT BIG TOE TISSUE CULTURE Has specimen been collected/obtained? Y Specimen Comment: GRAM STAIN RIGHT FOOT BIG TOE Specimen Comment: DEEP TISSUE CULTURE RIGHT FOOT BIG TOE Specimen Comment: RIGHT FOOT BIG TOE TISSUE CULTURE Has specimen been collected/obtained? Y Specimen Comment: GRAM STAIN RIGHT FOOT BIG TOE Specimen Comment: DEEP TISSUE CULTURE RIGHT FOOT BIG TOE Specimen Comment: RIGHT FOOT BIG TOE TISSUE CULTURE Has specimen been collected/obtained? Y CONTINUED ON NEXT PAGE RUN DATE: 08/15/25 [facility] PAGE 2 RUN TIME: [phone] [address], [place] [address] Department of [employer] [facility] # [id number] Digital Art Director: Mihai Hidalgo DO Specimen Report SPEC: [id number] PATIENT: BRUNO MOSS [id number] (Continued) Specimen Comment: GRAM STAIN RIGHT FOOT BIG TOE Specimen Comment: DEEP TISSUE CULTURE RIGHT FOOT BIG TOE Specimen Comment: RIGHT FOOT BIG TOE TISSUE CULTURE Has specimen been collected/obtained? Y Specimen Comment: GRAM STAIN RIGHT FOOT BIG TOE Specimen Comment: DEEP TISSUE CULTURE RIGHT FOOT BIG TOE Specimen Comment: RIGHT FOOT BIG TOE TISSUE CULTURE Has specimen been collected/obtained? Y Specimen Comment: GRAM STAIN RIGHT FOOT BIG TOE Specimen Comment: DEEP TISSUE CULTURE RIGHT FOOT BIG TOE Specimen Comment: RIGHT FOOT BIG TOE TISSUE CULTURE Has specimen been collected/obtained? Y Specimen Comment: GRAM STAIN RIGHT FOOT BIG TOE Specimen Comment: DEEP TISSUE CULTURE RIGHT FOOT BIG TOE Specimen Comment: RIGHT FOOT BIG TOE TISSUE CULTURE Has specimen been collected/obtained? Y Specimen Comment: GRAM STAIN RIGHT FOOT BIG TOE Specimen Comment: DEEP TISSUE CULTURE RIGHT FOOT BIG TOE Specimen Comment: RIGHT FOOT BIG TOE TISSUE CULTURE Has specimen been collected/obtained? Y Specimen Comment: GRAM STAIN RIGHT FOOT BIG TOE Specimen Comment: DEEP TISSUE CULTURE RIGHT FOOT BIG TOE Specimen Comment: RIGHT FOOT BIG TOE TISSUE CULTURE Has specimen been collected/obtained? Y Specimen Comment: GRAM STAIN RIGHT FOOT BIG TOE Specimen Comment: DEEP TISSUE CULTURE RIGHT FOOT BIG TOE Specimen Comment: RIGHT FOOT BIG TOE TISSUE CULTURE Has specimen been collected/obtained? Y Specimen Comment: GRAM STAIN RIGHT FOOT BIG TOE Specimen Comment: DEEP TISSUE CULTURE RIGHT FOOT BIG TOE Specimen Comment: RIGHT FOOT BIG TOE TISSUE CULTURE Has specimen been collected/obtained? Y Specimen Comment: GRAM STAIN RIGHT FOOT BIG TOE Specimen Comment: DEEP TISSUE CULTURE RIGHT FOOT BIG TOE Specimen Comment: RIGHT FOOT BIG TOE TISSUE CULTURE Has specimen been collected/obtained? Y Specimen Comment: GRAM STAIN RIGHT FOOT BIG TOE Specimen Comment: DEEP TISSUE CULTURE RIGHT FOOT BIG TOE Specimen Comment: RIGHT FOOT BIG TOE TISSUE CULTURE Has specimen been collected/obtained? Y Specimen Comment: GRAM STAIN RIGHT FOOT BIG TOE Specimen Comment: DEEP TISSUE CULTURE RIGHT FOOT BIG TOE Specimen Comment: RIGHT FOOT BIG TOE TISSUE CULTURE Has specimen been collected/obtained? Y Specimen Comment: GRAM STAIN RIGHT FOOT BIG TOE Specimen Comment: DEEP TISSUE CULTURE RIGHT FOOT BIG TOE Specimen Comment: RIGHT FOOT BIG TOE TISSUE CULTURE Has specimen been collected/obtained? Y Specimen Comment: GRAM STAIN RIGHT FOOT BIG TOE Specimen Comment: DEEP TISSUE CULTURE RIGHT FOOT BIG TOE Specimen Comment: RIGHT FOOT BIG TOE TISSUE CULTURE CONTINUED ON NEXT PAGE RUN DATE: 08/15/25 [facility] PAGE 3 RUN TIME: [phone] [address], [place] [address] Department of Laboratories IA # [id number] Digital Art Director: Mihai Hidalgo DO Specimen Report SPEC: [id number] PATIENT: BRUNO MOSS [id number] (Continued) Has specimen been collected/obtained? Y Specimen Comment: GRAM STAIN RIGHT FOOT BIG TOE Specimen Comment: DEEP TISSUE CULTURE RIGHT FOOT BIG TOE Specimen Comment: RIGHT FOOT BIG TOE TISSUE CULTURE Has specimen been collected/obtained? Y Specimen Comment: GRAM STAIN RIGHT FOOT BIG TOE Specimen Comment: DEEP TISSUE CULTURE RIGHT FOOT BIG TOE Specimen Comment: RIGHT FOOT BIG TOE TISSUE CULTURE Procedure Result Kign Date-Time GRAM STAIN ONLY Final 08/12/25 GRAM STAIN: 2+ WBC 2+ GRAM POSITIVE COCCI IN PAIRS 1+ GRAM NEGATIVE RODS 1+ GRAM POSITIVE RODS ANAEROBIC CULTURE Preliminary 08/15/25 [facility] DESCRIPTION: REPORT 1: NO ANAEROBES AT 24-35 HOURS; STUDIES TO CONTINUE REPORT 2: NO ANAEROBES AT 48-59 HOURS; STUDIES TO CONTINUE Test(s) performed by: [facility] [address] [place] [address] AEROBIC CULTURE Final 08/15/25 [facility] DESCRIPTION: REPORT 1: NO GROWTH AT 24-35 HOURS; STUDIES TO CONTINUE REPORT 2: 1+ GRAM POSITIVE COCCI IN CHAINS IDENTIFICATION AND SENSITIVITY TO FOLLOW REPORT 3: NO FURTHER WORK-UP DONE STREP ANGINOSUS/MILLERI [facility] M.I.[facility]. RX --------- ---- AMPICILLIN <=0.06 S CEFOTAXIME <=0.25 S CEFTRIAXONE <=0.25 S ERYTHROMYCIN <=0.06 S PENICILLIN <=0.03 S VANCOMYCIN <=0.12 S @ [facility] Test Performed at: [facility] [address], [place], [place] Medical Filemaker Developer: Yimi Holm D.O. RUN DATE: 08/15/25 [facility] PAGE 1 RUN TIME: [phone] [id number] Department of Laboratories [facility] # [id number] Digital Art Director: Mihai Hidalgo DO Specimen Report SPEC: [id number] PATIENT: BRUNO MOSS [id number] (Continued) RUN DATE: 08/12/25 [facility] PAGE 1 RUN TIME: [address] [id number] Department of Laboratories IA # [id number] Digital Art Director: Mihai Hidalgo DO Specimen Report --- --------- PATIENT: BRUNO MOSS ACCT: [id number] LOC: [facility] U: [id number] AGE/SX: 44/F ROOM: 323 RE08/07/[address]: LUIS HEAD MD : 1980 BED: 1 DIS: STATUS: ADM IN TLOC: SPEC: [id number] JEFF: 08/07/25 STATUS: COMP REQ: [id number] RECD: 08/07/[address] [facility] [address]: CHARITY GR NP SOURCE: TOE ENTR: 08/07/[address]: SELF,REFERRAL SPDESC: BIG SIMINKYLEE DO ORDERED: AEROBIC CULTURE COMMENTS: Comment: RIGHT GREAT TOE ULCER Comment: RIGHT GREAT TOE ULCER Procedure Result King Date-Time AEROBIC CULTURE Final 08/12/25-804 [facility] DESCRIPTION: REPORT 1: 1+ SKIN ETIENNE ; STUDIES TO CONTINUE COAGULASE NEGATIVE STAPHYLOCOCCUS REPORT 2: 1+ GRAM POSITIVE COCCI IN CHAINS IDENTIFICATION AND SENSITIVITY TO FOLLOW REPORT 3: NO FURTHER WORK-UP DONE STREPTOCOCCUS BOVIS STR BOVIS M.I.C. RX --------- ---- LINEZOLID <=2 S PENICILLIN <=0.03 S TRIMETHOPRIM/SUFLAMETHOXAZOLE <=0.5/9.5 TFG RUN DATE: 08/12/25 [facility] PAGE 1 RUN TIME: [address] [address], [place] [address] Department of Laboratories CLIA # [id number] Digital Art Director: Mihai Hidalgo DO Specimen Report -- PATIENT: BRUNO MOSS ACCT: [id number] LOC: [facility] U: [id number] AGE/SX: 44/F ROOM: 323 RE08/07/[address]: LUIS HEAD MD : 1980 BED: 1 DIS: STATUS: ADM IN TLOC: SPEC: [id number] JEFF: 08/07/25-1117 STATUS: COMP REQ: [id number] RECD: 08/07/25-[address]: CHARITY GR NP SOURCE: BLOOD ENTR: 08/07/25-[address]: KYLEE DUVAL DO SPDESC: ORDERED: BLOOD CULTURE COMMENTS: What is the Source? BLOOD Procedure Result King Date-Time BLOOD CULT Final 08/12/25-1149 NO GROWTH AFTER 5 DAYS RUN DATE: 08/12/25 [facility] PAGE 1 RUN TIME: [address] [address], [place] [address] Department of Laboratories [facility] # [id number] Digital Art Director: Mihai Hidalgo DO Specimen Report PATIENT: BRUNO MOSS ACCT: [id number] LOC: [facility] U: [id number] AGE/SX: 44/F ROOM: 323 RE08/07/[address]: LUIS HEAD MD : 1980 BED: 1 DIS: STATUS: ADM IN TLOC: ------- ----- SPEC: [id number] JEFF: 08/07/25 STATUS: COMP REQ: [id number] RECD: 08/07/[address]: CHARITY GR NP SOURCE: BLOOD ENTR: 08/07/25-[address]: KYLEE DUVAL DO KAISER HAYWARD: ORDERED: BLOOD CULTURE COMMENTS: What is the Source? BLOOD Procedure Result King Date-Time BLOOD CULT Final 08/12/25-1120 NO GROWTH AFTER 5 DAYS - REASON: R/O OSTEOMYLITIS ORDERING PHYSICIAN: ÁNGELA YORK MD PROCEDURE: FT RT WWO - MR FOOT RIGHT WWO EXAMINATION: NONCONTRAST MRI OF THE RIGHT FOOT. CLINICAL HISTORY: Rule out osteomyelitis. COMPARISON: None provided. TECHNIQUE: Multiplanar, multisequence MR images of the right foot were obtained without and with intravenous contrast. FINDINGS: There is mild marrow edema in the 1st proximal and distal phalanx. No corresponding hypointensity is noted on T1Wt images. There is focal irregular STIR hyperintense collection medial to the first proximal phalanx, approximately measuring 1.9 x 0.9 x 1.9 cm (AP by transverse by craniocaudal). There is subtle overlying skin ulceration. On post-contrast images it does not reveal any enhancement. Joint spaces are preserved. Visualized extensor and flexor tendons are normal in course and morphology without evidence of tenosynovitis. There is mild to moderate edema is seen in the muscles of the foot. Moderate dorsal subcutaneous edema is seen. IMPRESSION: 1. Focal irregular collection medial to the first proximal phalanx, measuring 1.9 x 0.9 x 1.9 cm, with overlying skin ulceration. 2. Mild marrow edema in the 1st proximal and distal phalanx. This could be reactive or reflect early osteomyelitis. REASON: ASSESS FOR PVD ORDERING PHYSICIAN: LUIS HEAD MD PROCEDURE: ART B LE - US ARTERIAL BILAT LOW EXT DUPL EXAM: US Duplex bilateral Lower Extremity Arteries. CLINICAL HISTORY: ASSESS FOR PVD TECHNIQUE: Real-time ultrasound scan of the arteries of the bilateral lower extremity with 2-D spann scale, color Doppler flow, and spectral waveform analysis. COMPARISON: None provided. FINDINGS: COMMON FEMORAL ARTERY: No occlusion or significant stenosis. SUPERFICIAL FEMORAL ARTERY: No occlusion or significant stenosis. POPLITEAL ARTERY: No occlusion or significant stenosis. CALF ARTERIES: No occlusion or significant stenosis. Waveforms are triphasic within the bilateral lower extremity arteries. IMPRESSION: 1. No significant arterial stenosis or occlusion in bilateral lower extremities. REASON: INSECT BITE WITH A ERYTHEMA TO RIGHT FOOT DORSAL ORDERING PHYSICIAN: CHARITY GR CASE LOADER OPERATOR PROCEDURE: FT 3VW RT - FOOT COMP 3+VWS RT FOOT COMP 3+VWS RT REASON: INSECT BITE WITH A ERYTHEMA TO RIGHT FOOT DORSAL TECHNIQUE: 4 views were obtained. FINDINGS: There is no evidence of fracture or dislocation. There is no joint effusion. The soft tissues appear unremarkable. There is no evidence of a radiopaque foreign body. There is a small ventral calcaneal spur. IMPRESSION: No acute findings. Small ventral calcaneal spur Home Medications: Active Scripts Acetaminophen with Codeine (Acetaminophen-Cod #3 Tablet) 300 Mg-30 Mg Tablet, 1 TAB PO Q6HPRN PRN for pain for 5 Days, #10 TAB 0 Refills Prov:MALU ESPINOSA NP 08/15/25 Reported Medications Insulin Lispro (Insulin Lispro) 100 Unit/Ml Vial, 100 UNIT SQ AD, VIAL 08/07/25 Glipizide (Glipizide) 10 Mg Tablet, 1 TAB PO BID for 30 Days, #60 TAB 0 Refills 08/07/25 Clindamycin HCl (Clindamycin HCl) 300 Mg Capsule, 1 CAP PO TID for 10 Days, #30 CAP 0 Refills 08/07/25 New Medications: Acetaminophen with Codeine (Acetaminophen-Cod #3 Tablet) 300 Mg-30 Mg Tablet 1 TAB PO Q6HPRN PRN for pain for 5 Days, #10 TAB 0 Refills Insulin Glargine,Hum.rec.anlog (Lantus Solostar) 100 Unit/Ml (3 Ml) Insuln.pen 30 UNIT SQ DAILY for 30 Days, #1 SYRINGE 0 Refills Insulin Lispro (Insulin Lispro Kwikpen U-100) 100 Unit/Ml Insuln.pen 10 UNIT SQ TIDAC for 30 Days, #1 SYRINGE Continued Medications: Glipizide (Glipizide) 10 Mg Tablet 1 TAB PO BID for 30 Days, #60 TAB 0 Refills Insulin Lispro (Insulin Lispro) 100 Unit/Ml Vial 100 UNIT SQ AD, VIAL Discontinued Medications: Clindamycin HCl (Clindamycin HCl) 300 Mg Capsule 1 CAP PO TID for 10 Days, #30 CAP 0 Refills Time spent arranging discharge: 31-60 minutes ATTESTATION BY PHYSICIAN I have seen and examined the patient. I reviewed the documentation, medical decision making, and treatment plan as noted by the mid-level provider above. I agree with the findings and plan of care. DESHAUN RYAN MD, [facility] NP Aug 15, 2025 10:51
--- NOTE | 2025-08-15 11:55 | NUR ---
WOUND CARE WOUND CARE WAS DONE. CLEANED WITH NS,XEROFORM,GAUZE, AND KARLIX WAS DONE. PATIENT DEMONSTRATED TEACH BACK. ANSWERED ANY QUESTIONS AND CONCERNS PATIENT HAD. WOUND CARE TEACHING WAS DONE.
[2025-08-15 12:00] VITALS: BP 141/89; PULSE 89; RESP 20; TEMP 98.1
--- NOTE | 2025-08-15 12:45 | NUR ---
CM NOTE CM spoke to patient regarding pending discharge. Patient concerned about wound not healing and possibly needing salvage determiner IV abx. CM explained that Dr. York has reviewed cultures and has made recommendations for PO abx. Patient asked CM about [place] [facility] explained that patient has a plan of care for discharge and currently does not meet criteria for transfer. Patient requesting an MD assess wound prior to discharge. CM advised Dr. York. States he will round and assess wound. No other questions or concerns verbalized.
--- NOTE | 2025-08-15 18:49 | NUR ---
PATIENT DISCHARGED HOME ID BAND AND IV REMOVED. DISCHARGE INSTRUCTIONS EXPLAINED AND GIVEN TO PATIENT. PATIENT VERBALIZED UNDERSTANDING. BELONGINGS PACKED AND TAKEN BY PATIENT. WHEELED DOWN TO PRIVATE CAR.
--- NOTE | 2025-08-15 22:16 | PN ---
INFECTIOUS DISEASE PROGRESS NOTE Date of Service: Aug 15, 2025 SUBJECTIVE: This is a 44-year-old female patient who is s/p Excisional debridement of the right great toe ulcer on 08/12/2025. The erythema and swollen to the right foot has improved. No drainage. Patient stated that she was only shown one time to do the dressing change and does not feel comfortable to perform the wound care on her own. Patient is requesting to talk to the adult protective caseworker, nursing to contact case management to talk to Patient. Patient can be discharged on cephalexin t.i.d. for 6 weeks when ready to discharge. PHYSICAL EXAM EYES: Anicteric. Pupils equal and reactive. HENT: No oral thrush seen, moist Oral mucosa. NECK: Supple, no JVD or thyromegaly. LUNGS: Good air entry. No rales, no rhonchi. CARDIOVASCULAR: S1, S2 regular. No murmur heard. ABDOMEN: Soft, non tender, bowel sounds present, no organomegaly. CENTRAL NERVOUS SYSTEM: Awake, alert, oriented x 3. SKIN: No rashes, no swelling. Right great toe wound and cellulitis. LYMPHATICS: No peripheral lymphadenopathy MUSCULOSKELETAL: No joint swelling, erythema or tenderness. EXTREMITIES: No cyanosis or clubbing. BACK: No deformity, no pressure ulcer. GENITOURINARY: No dysuria or hematuria. Vital Sign (Last 12 Hours) 08/15/25 12:00 Temp 98.1 Pulse 89 Resp 20 B/P (MAP) 141/89 Pulse Ox 99 O2 Delivery Room Air Intake & Output (last 24hrs) 08/14/25 08/14/25 08/15/25 15:00 23:00 07:00 Intake Total 1000.0 ml Balance 1000.0 ml LABS: Laboratory: Test 08/15/25 11:59 08/14/25 15:00 08/14/25 08:04 Range/Units Whole Blood Glucose 124 H 70-110 MG/DL Bedside Glucose Comment Notified Nurse White Blood Count 11.0 H 4.8-10.8 K/uL Red Blood Count 3.60 L 4.00-5.50 MIL/uL Hemoglobin 10.1 L 12.0-16.0 g/dL Hematocrit 31.0 L 36-48 % Mean Corpuscular Volume 86.1 79-99 fL Mean Corpuscular Hemoglobin 28.1 27.0-33.0 pg Mean Corpuscular Hemoglobin Concent 32.6 32.0-36.0 g/dL Red Cell Distribution Width 11.8 11.0-15.5 % Platelet Count 324 130-400 K/uL Mean Platelet Volume 9.6 7.5-10.5 fL Immature Granulocyte % (Auto) 0.8 0-1 % Neutrophils (%) (Auto) 78.4 H 40.0-77.0 % Lymphocytes (%) (Auto) 13.6 L 21.0-51.0 % Monocytes (%) (Auto) 5.6 3.0-13.0 % Eosinophils (%) (Auto) 1.3 0.0-8.0 % Basophils (%) (Auto) 0.3 0.0-5.0 % Neutrophils # (Auto) 8.6 H 1.8-7.7 K/uL Lymphocytes # (Auto) 1.5 1.0-4.8 K/uL Monocytes # (Auto) 0.6 0.1-1.0 K/uL Eosinophils # (Auto) 0.14 0.00-0.70 K/uL Basophils # (Auto) 0.03 0.00-0.20 K/uL Absolute Immature Granulocyte (auto 0.09 0-1 K/uL Nucleated Red Blood Cells 0.0 0.0-0.19 % Sodium Level 137 136-145 mmol/L Potassium Level 4.0 3.5-5.1 mmol/L Chloride Level 104 101-111 mmol/L Carbon Dioxide Level 26 21-32 mmol/L Blood Urea Nitrogen 18 7-18 mg/dL Creatinine 0.6 0.5-1.0 mg/dL Glomerular Filtration Rate Calc 113 >90 mL/min Random Glucose 180 H 70-105 mg/dL Total Calcium 8.5 8.5-10.1 mg/dL Magnesium Level 1.90 1.80-2.40 mg/dL Total Bilirubin 0.4 0.2-1.0 mg/dL Aspartate Amino Transf (AST/SGOT) 20 10-37 U/L Alanine Aminotransferase (ALT/SGPT) 24 12-78 U/L Alkaline Phosphatase 216 H 50-136 U/L Total Protein 6.9 6.0-8.3 g/dL Albumin 2.5 L 3.5-5.0 g/dL PATIENT: BRUNO MOSS ACCT: [id number] LOC: 3D U: [id number] AGE/SX: 44/F ROOM: 323 RE08/07/[address]: LUIS HEAD MD : 1980 BED: 1 DIS: STATUS: ADM IN TLOC: SPEC: [id number] JEFF: 08/12/25 STATUS: COMP REQ: [id number] RECD: 08/12/[address]: LATRICE RIVERA DPM SOURCE: TISSUE ENTR: 08/12/[address]: ÁNGELA URRUTIA MD SPDESC: OTHER VETO MORRIS MD, ADARSH MD MARTINEZ, ANTONIO MD ORDERED: GS, TETO CULTURE, AEROBIC CULTURE COMMENTS: Has specimen been collected/obtained? Y Specimen Comment: GRAM STAIN RIGHT FOOT BIG TOE Specimen Comment: DEEP TISSUE CULTURE RIGHT FOOT BIG TOE Specimen Comment: RIGHT FOOT BIG TOE TISSUE CULTURE RUN DATE: 08/15/25 [facility] PAGE 2 RUN TIME: [address] [address], [place] [address] Department of Laboratories [facility] # [id number] Hand Bulldozer: Mihai Hidalgo DO Specimen Report SPEC: [id number] PATIENT: BRUNO MOSS [id number] (Continued) Specimen Comment: GRAM STAIN RIGHT FOOT BIG TOE Specimen Comment: DEEP TISSUE CULTURE RIGHT FOOT BIG TOE Specimen Comment: RIGHT FOOT BIG TOE TISSUE CULTURE Has specimen been collected/obtained? Y Specimen Comment: GRAM STAIN RIGHT FOOT BIG TOE CONTINUED ON NEXT PAGE RUN DATE: 08/15/25 [facility] [address] 3 RUN TIME: [address] [address], [place] [address] Department [facility] CLIA # [id number] Hand Bulldozer: Mihai Hidalgo DO Specimen Report SPEC: [id number] PATIENT: BRUNO MOSS [id number] (Continued) Has specimen been collected/obtained? Y Specimen Comment: GRAM STAIN RIGHT FOOT BIG TOE Specimen Comment: DEEP TISSUE CULTURE RIGHT FOOT BIG TOE Specimen Comment: RIGHT FOOT BIG TOE TISSUE CULTURE ------- ----- Procedure Result King Date-Time GRAM STAIN ONLY Final 08/12/25 GRAM STAIN: 2+ WBC 2+ GRAM POSITIVE COCCI IN PAIRS 1+ GRAM NEGATIVE RODS 1+ GRAM POSITIVE RODS ANAEROBIC CULTURE Final 08/15/25-1433 MRL COLONY DESCRIPTION: REPORT 1: NO ANAEROBES AT 24-35 HOURS; STUDIES TO CONTINUE REPORT 2: NO ANAEROBES AT 48-59 HOURS; STUDIES TO CONTINUE REPORT 3: 1+ GRAM NEGATIVE RODS POSSIBLE ANAEROBE ISOLATED IDENTIFICATION TO FOLLOW BETA LACTAMASE POSITIVE NO FURTHER WORK-UP DONE PREVOTELLA BIVIA Test(s) performed by: [facility] [address] [place] [address] AEROBIC CULTURE Final 08/15/25-1026 MRL COLONY DESCRIPTION: REPORT 1: NO GROWTH AT 24-35 HOURS; STUDIES TO CONTINUE REPORT 2: 1+ GRAM POSITIVE COCCI IN CHAINS IDENTIFICATION AND SENSITIVITY TO FOLLOW REPORT 3: NO FURTHER WORK-UP DONE STREP ANGINOSUS/MILLERI RUN DATE: 08/15/25 [facility] [address] 4 RUN TIME: [address] [address], [place] [address] Department of Laboratories [facility] # [id number] Hand Bulldozer: Mihai Hidalgo DO Specimen Report SPEC: [id number] PATIENT: BRUNO MOSS [id number] (Continued) Procedure Result King Date-Time CONTINUED ON NEXT PAGE RUN DATE: 08/15/25 [facility] [address] 5 RUN TIME: [address] [address] Department of Laboratories CLIA # [id number] Hand Bulldozer: Mihai Hidalgo DO Specimen Report SPEC: [id number] PATIENT: BRUNO MOSS [id number] (Continued) Procedure Result King Date-Time --------- --- AEROBIC CULTURE Final (continued) 08/15/25-1026 [facility] RX --------- ---- AMPICILLIN <=0.06 S CEFOTAXIME <=0.25 S CEFTRIAXONE <=0.25 S ERYTHROMYCIN <=0.06 S PENICILLIN <=0.03 S VANCOMYCIN <=0.12 S ASSESSMENT: Right great toe ulcer secondary to spider bite, status post Excisional debridement on 08/12/2025. Failed oral antibiotic therapy. Right foot cellulitis. Diabetes mellitus. PLAN: Continue ceftriaxone. Continue pain management. Continue antidiabetics. Wound care as recommended by grease man. Patient can be discharged on cephalexin t.i.d. for six weeks when ready to discharge. This case was reviewed and discussed with my supervising physician Dr. Urrutia and the above assessment and plan was formulated and agreed upon. ATTESTATION BY PHYSICIAN I have seen and examined the patient. I reviewed the documentation, medical decision making, and treatment plan as noted by the mid-level provider above. I agree with the findings and plan of care. ÁNGELA URRUTIA MD,[facility] Aug 15, 2025 22:16
--- NOTE | 2025-08-15 22:26 | PN ---
Endocrinology progress note DOS:08/15/25 subjective: glucose are improving. Home diabetic regimen: lispro insulin 20 units tid before meals Hba1c 14.5% glucose runs greater than 200 mg/dl. REVIEW OF SYSTEMS CONSTITUTIONAL: Positive for fever, chills, malaise but improving. NEUROLOGICAL: Denies headache, amaurosis fugax, motor weakness, sensory deficit, vertigo/spinning sensation, gait abnormalities, or tremors. ENT: No hearing loss, otalgia, otorrhea, rhinitis, rhinorrhea, hoarseness, or sore throat. CARDIOVASCULAR: Denies any exertional angina, dyspnea on exertion, orthopnea, paroxysmal nocturnal dyspnea, palpitations, life-threatening arrhythmias, claudication. PULMONARY: Denies any shortness of breath, cough, phlegm/sputum, hemoptysis, pleuritic chest pain. GASTROINTESTINAL: Denies any type of dysphagia to either liquids or solids. Denies nausea, vomiting, pyrosis, early satiety, abdominal pain, diarrhea, constipation, or changes in stool consistency or caliber. Denies coffee-ground emesis, hematemesis, hematochezia, or melanotic stools. GENITOURINARY: Denies frequency, urgency, nocturia, hematuria or incontinence (Storage/Irritative symptoms.) Low urinary stream, straining to void, urinary intermittency or hesitancy, splitting of the voiding stream, terminal dribbling. ENDOCRINOLOGIC: Denies polyuria, polydipsia, polyphagia or heat/cold intolerances. HEMATOLOGIC: Denies thrombophilia/previous clots, or coagulopathy/bleeding disorders. ONCOLOGIC: Denies personal history of malignancy. DERMATOLOGIC: Denies rashes or pruritus. PSYCHIATRIC: Denies any suicidal or homicidal ideation. Denies hallucinations. Musculoskeletal: Pain in the right big toe PAST MEDICAL HISTORY: Diabetes mellitus type 2 PAST SURGICAL HISTORY: History of , history of tubal ligation PAST SOCIAL HISTORY: Denied any smoking, alcohol, drug use FAMILY HISTORY: Denied any pertinent family history Coded Allergies: No Known Drug Allergies (Unverified Allergy, Unknown, 08/07/25) DIAGNOSTICS / RADIOLOGY: Foot x-ray showed no acute findings ASSESSMENT: uncontrolled type 2 DM, POA she wa diagnosed with dm-2 two weeks ago. glucose runs greater than 200 mg/dl. Cellulitis involving the right big toe with open wound status post incision and drainage by Podiatry failed outpatient treatment POA now s/p excisional debridement I&D pending Mild Hyponatremia - improved PLAN: continue Lantus 15 units daily and adjust for fasting glucose. continue Regular insulin 7 units three times before meals and adjust for post- prandial glucose. Continue medium dose sliding scale insulin. Monitor glucose q x 6 hourly. Continue carbs consistent diet. Keep glucose less than 180 mg/dl. Patient will need lantus 30 units daily and lispro insulin 10 units tid before meals at discharge. Vitals/Labs Vital Signs Date Time Temp Pulse Resp B/P (MAP) Pulse Ox O2 Delivery O2 Flow Rate FiO2 08/15/25 12:00 98.1 89 20 141/89 99 Room Air 08/15/25 08:00 0 21 Medications Current Medications Clindamycin HCl/ Dextrose 50 ml @ 100 mls/hr ONCE STAT IV Last administered on 08/07/25at 12:56; Start 08/07/25 at 12:16; Stop 08/07/25 at 12:45; Status DC Sodium Chloride 1,000 ml @ 0 mls/hr ONCE ONCE IV Last administered on 08/07/25at 12:56; Start 08/07/25 at 13:00; Stop 08/07/25 at 13:01; Status DC Morphine Sulfate 2 mg ONCE ONCE IVP; Start 08/07/25 at 13:30; Stop 08/07/25 at 13:31; Status DC Ondansetron HCl 4 mg Q6H PRN IVP Last administered on 08/08/25at 17:44; Start 08/07/25 at 13:30; Stop 08/15/25 at 19:44; Status DC Morphine Sulfate 4 mg STK-MED ONCE .ROUTE; Start 08/07/25 at 13:27; Stop 08/07/25 at 13:27; Status DC Morphine Sulfate 2 mg ONCE ONCE IVP Last administered on 08/07/25at 13:34; Start 08/07/25 at 14:00; Stop 08/07/25 at 14:03; Status DC Ketorolac Tromethamine 15 mg Q6H PRN IV Last administered on 08/12/25at 13:25; Start 08/07/25 at 14:00; Stop 08/12/25 at 13:59; Status DC Morphine Sulfate 2 mg Q4H PRN IVP Last administered on 08/11/25at 13:20; Start 08/07/25 at 14:00; Stop 08/12/25 at 16:59; Status DC Sodium Chloride 1,000 ml @ 100 mls/hr Q10H IV Last administered on 08/15/25at 02:43; Start 08/07/25 at 14:00; Stop 08/15/25 at 19:44; Status DC Insulin Human Regular INSULIN SLIDING SCAL... ACHS SQ Last administered on 08/08/25at 21:45; Start 08/07/25 at 16:30; Stop 08/08/25 at 23:36; Status DC Acetaminophen 500 mg Q6H PRN PO Last administered on 08/15/25at 13:03; Start 08/07/25 at 14:00; Stop 08/15/25 at 19:44; Status DC Vancomycin HCl 1 each AD IV; Start 08/07/25 at 14:00; Stop 08/12/25 at 22:50; Status DC Cefepime HCl 1 gm Q8H IVPB Last administered on 08/13/25at 21:02; Start 08/07/25 at 14:00; Stop 08/13/25 at 23:17; Status DC Potassium Chloride 100 ml @ 100 mls/hr AD PRN IV; Start 08/07/25 at 14:00; Stop 08/15/25 at 19:44; Status DC Potassium Chloride 20 meq AD PRN PO; Start 08/07/25 at 14:00; Stop 08/15/25 at 19:44; Status DC Potassium Chloride 20 meq AD PRN PO Last administered on 08/09/25at 12:08; Start 08/07/25 at 14:00; Stop 08/15/25 at 19:44; Status DC Magnesium Sulfate 50 ml @ 0 mls/hr PROTOCOL PRN IV Last administered on 08/13/25at 06:03; Start 08/07/25 at 14:00; Stop 08/15/25 at 19:44; Status DC Vancomycin HCl 250 ml @ 125 mls/hr ONCE ONCE IV Last administered on 08/07/25at 15:07; Start 08/07/25 at 15:00; Stop 08/07/25 at 16:59; Status DC Vancomycin HCl 250 ml @ 125 mls/hr Q12H IV Last administered on 08/08/25at 03:13; Start 08/08/25 at 03:00; Stop 08/08/25 at 19:33; Status DC Famotidine 20 mg BID IV Last administered on 08/15/25at 08:17; Start 08/07/25 at 21:00; Stop 08/15/25 at 19:44; Status DC Cadexomer Iodine 1 APPL ONCE ONCE TP Last administered on 08/07/25at 20:18; Start 08/07/25 at 19:30; Stop 08/07/25 at 19:31; Status DC Insulin Glargine 12 units DAILY SQ Last administered on 08/10/25at 08:14; Start 08/08/25 at 09:00; Stop 08/11/25 at 07:03; Status DC Fluticasone Propionate 1 SPRAY DAILY EN Last administered on 08/15/25at 08:17; Start 08/08/25 at 12:00; Stop 08/15/25 at 19:44; Status DC Fluticasone Propionate 2 SPRAYS ONCE EN; Start 08/08/25 at 11:00; Stop 08/08/25 at 11:07; Status DC Montelukast Sodium 10 mg HS PO Last administered on 08/14/25at 20:26; Start 08/08/25 at 21:00; Stop 08/15/25 at 19:44; Status DC Acetaminophen/ Hydrocodone Bitart 1 tab Q6H PRN PO Last administered on 08/10/25at 16:34; Start 08/08/25 at 11:30; Stop 08/11/25 at 07:06; Status DC Gadoterate Meglumine 10 mmol STK-MED ONCE IV; Start 08/08/25 at 16:10; Stop 08/08/25 at 16:11; Status DC Vancomycin HCl 250 ml @ 125 mls/hr Q12H IV Last administered on 08/12/25at 20:19; Start 08/08/25 at 20:00; Stop 08/12/25 at 22:50; Status DC Insulin Human Regular INSULIN SLIDING SCAL... ACHS SQ Last administered on 08/14/25at 20:32; Start 08/09/25 at 07:30; Stop 08/15/25 at 19:44; Status DC Cadexomer Iodine DAILY TP Last administered on 08/15/25at 08:28; Start 08/09/25 at 09:00; Stop 08/15/25 at 19:44; Status DC Enoxaparin Sodium 30 mg DAILY SQ Last administered on 08/15/25at 08:23; Start 08/09/25 at 09:00; Stop 08/15/25 at 19:44; Status DC Insulin Human Regular 5 unit TIDAC SQ Last administered on 08/12/25at 17:15; Start 08/10/25 at 17:00; Stop 08/12/25 at 20:21; Status DC Docusate Sodium 100 mg BID PRN PO Last administered on 08/15/25at 08:24; Start 08/10/25 at 20:30; Stop 08/15/25 at 19:44; Status DC Insulin Glargine 15 units DAILY SQ Last administered on 08/15/25at 08:28; Start 08/11/25 at 09:00; Stop 08/15/25 at 19:44; Status DC Lidocaine HCl 20 ml STK-MED ONCE .ROUTE; Start 08/12/25 at 06:43; Stop 08/12/25 at 06:43; Status DC Bupivacaine HCl 5 mg STK-MED ONCE .ROUTE; Start 08/12/25 at 06:43; Stop 08/12/25 at 06:43; Status DC Midazolam HCl 2 mg STK-MED ONCE .ROUTE; Start 08/12/25 at 06:46; Stop 08/12/25 at 06:46; Status DC Propofol 200 mg STK-MED ONCE IV; Start 08/12/25 at 06:46; Stop 08/12/25 at 06:46; Status DC Fentanyl Citrate 100 mcg STK-MED ONCE .ROUTE; Start 08/12/25 at 06:46; Stop 08/12/25 at 06:46; Status DC Ondansetron HCl 4 mg STK-MED ONCE .ROUTE; Start 08/12/25 at 07:01; Stop 08/12/25 at 07:01; Status DC Propofol 200 mg STK-MED ONCE IV; Start 08/12/25 at 07:09; Stop 08/12/25 at 07:09; Status DC Fentanyl Citrate 100 mcg STK-MED ONCE .ROUTE; Start 08/12/25 at 07:21; Stop 08/12/25 at 07:22; Status DC Bupivacaine HCl 75 mg STK-MED ONCE IJ Last administered on 08/12/25at 06:50; Start 08/12/25 at 06:50; Stop 08/12/25 at 07:40; Status DC Lidocaine HCl 20 ml STK-MED ONCE MISC Last administered on 08/12/25at 06:51; Start 08/12/25 at 06:51; Stop 08/12/25 at 07:40; Status DC Ketorolac Tromethamine 15 mg Q6H PRN IV; Start 08/12/25 at 20:00; Stop 08/12/25 at 20:05; Status DC Morphine Sulfate 4 mg Q4H PRN IVP Last administered on 08/13/25at 11:28; Start 08/12/25 at 20:30; Stop 08/13/25 at 13:59; Status DC Insulin Human Regular 7 unit TIDAC SQ Last administered on 08/15/25at 06:50; Start 08/13/25 at 07:30; Stop 08/15/25 at 19:44; Status DC Linezolid 600 mg Q12H PO Last administered on 08/13/25at 20:59; Start 08/13/25 at 09:00; Stop 08/13/25 at 23:17; Status DC Ketorolac Tromethamine 15 mg Q6H PRN IM; Start 08/13/25 at 14:00; Stop 08/13/25 at 17:21; Status DC Ketorolac Tromethamine 15 mg Q6H PRN IV; Start 08/13/25 at 20:00; Stop 08/13/25 at 17:36; Status DC Ketorolac Tromethamine 15 mg Q6H PRN IV Last administered on 08/15/25at 14:55; Start 08/13/25 at 17:30; Stop 08/15/25 at 19:44; Status DC Ceftriaxone Sodium 2 gm Q24H IVPB Last administered on 08/15/25at 08:18; Start 08/14/25 at 09:00; Stop 08/15/25 at 19:44; Status DC VETO MORRIS MD Aug 15, 2025 22:26
== END 2025-08-15 18:00 | disposition home or self-care (01) | DRG 623 ==
LOC: EDH 10:52 → EDHIP 13:47 → 3DH 08-08 17:08
PROVIDERS: ADMIT Internal Medicine; ATTEND Internal Medicine
PROC: 0LBV0ZZ Excision of Right Foot Tendon, Open Approach (ICD-10-PCS; principal; 2025-08-12 07:00)
DX: E11.69 Type 2 diabetes mellitus with other specified complication (principal); E87.1 Hypo-osmolality and hyponatremia; L03.115 Cellulitis of right lower limb; L02.611 Cutaneous abscess of right foot; L97.518 Non-pressure chronic ulcer of other part of right foot with other specified severity; M86.8X7 Other osteomyelitis, ankle and foot; E11.621 Type 2 diabetes mellitus with foot ulcer; L03.031 Cellulitis of right toe; E11.65 Type 2 diabetes mellitus with hyperglycemia; I10 Essential (primary) hypertension; E11.622 Type 2 diabetes mellitus with other skin ulcer; E87.6 Hypokalemia; F32.A Depression, unspecified; E87.8 Other disorders of electrolyte and fluid balance, not elsewhere classified; E66.9 Obesity, unspecified; T63.331A Toxic effect of venom of brown recluse spider, accidental (unintentional), initial encounter; Z79.4 Long term (current) use of insulin; Z83.3 Family history of diabetes mellitus; Z98.51 Tubal ligation status; Z98.891 History of uterine scar from previous surgery; Z68.30 Body mass index [BMI] 30.0-30.9, adult
CPT/HCPCS: 36415; 73630; 73720; 80048; 80053; 80061; 80202; 80305; 81001; 81025; 82948; 83036; 83605; 83735; 84145; 84443; 85025; 85610; 85730; 86140; 87040; 87070; 87076; 87086; 87186; 87205; 88304; 93925; 96374; 96375; 99285; G0378; J0692; J0696; J1650; J1815; J1885; J2250; J2270; J2405; J2704; J3010; J3475; J3490; J7030; A4216; A4222; A4223; A4649; A4930; A9575; J0665; J1308; J3370; J3375